=== PATIENT | male | born 1980 | race Caucasian/White ===

== ENCOUNTER 2017-11-01 16:40 | Inpatient (IN) | payer OTHER ==
[~2017-11-01] VITALS: Ht 182.9 cm; Wt 107.5 kg
[~2017-11-01 16:40] MED LIST: AMLO10TA PO; ASPI-1093 PO; ASPI81CT95 PO; CALC667C3 PO; CARV25TA PO; CARV25TA2 PO; CLON0.1T42 PO; CLON0.2T16 PO; FOLI1TAB19 PO; FOS500 PO; FURO-570 PO; HYDR-1807 PO; LANTUS SUBQ; LISI-420 PO; OMEG1SGL6 PO; OMEP40EC1 PO; SIMV20TA1 PO; SIMV20TA6 PO; [UNRECOGNIZED DRUG - CODE] PO; [UNRECOGNIZED DRUG - CODE] PO; [UNRECOGNIZED DRUG - CODE] SC
[2017-11-01 17:00] VITALS: BP 73/44
[2017-11-01] MEDS ORDERED: NACL 0.9% 1,000 ML IV ONE ×2 (17:15→19:10)
[2017-11-01] MEDS ORDERED: VITD1000 PO (17:19)
[2017-11-01] MEDS ORDERED: SUCR500C PO (17:19)
[2017-11-01] MEDS ORDERED: ROC.25 PO (17:19)
[2017-11-01] MEDS ORDERED: [UNRECOGNIZED DRUG - CODE] SC (17:19)
[2017-11-01] MEDS ORDERED: INSU300S SC (17:19)
[2017-11-01] MEDS ORDERED: ONDA4TAB PO (17:19)
[2017-11-01] MEDS ORDERED: CRAN300T PO (17:19)
[2017-11-01] MEDS ORDERED: ATROPINE PO (17:19)
[2017-11-01] MEDS ORDERED: LOSA50TA39 PO (17:19)
[2017-11-01 18:02] LABS: BASOPHILS # (AUTO) 0.3 K/uL (0.00-0.22); BASOPHILS % (AUTO) 3.1 % (0.0-2.0); EOSINOPHILS # (AUTO) 0.2 K/uL (0-0.4); HEMATOCRIT 43.1 % (36-52); HEMOGLOBIN 14.3 g/dL (12.0-18.0); LYMPHOCYTES # (AUTO) 2.6 K/uL (2.0-11.5); LYMPHOCYTES % (AUTO) 25.6 % (20.5-51.1); MEAN CORPUSCULAR HEMOGLOBIN 33 pg (27-31); MEAN CORPUSCULAR HGB CONC 33 g/dL (33-37); MEAN CORPUSCULAR VOLUME 100 fL (80-94); MONOCYTES # (AUTO) 1.1 K/uL (0.8-1.0); MONOCYTES % (AUTO) 10.7 % (1.7-9.3); NEUTROPHILS # (AUTO) 5.8 K/uL (1.8-7.7); NEUTROPHILS % (AUTO) 58.6 % (42.2-75.2); PLATELET COUNT (AUTO) 239 K/uL (140-450); RED BLOOD CELL COUNT(AUTO) 4.32 MIL/uL (4.20-6.10); RED CELL DISTRIBUTION WIDTH 14.7 % (11.6-13.7)
[2017-11-01 18:11] LABS: ANION GAP 20.1 (8-16); CARBON DIOXIDE 22.8 mmol/L (21-32); POTASSIUM 3.9 mmol/L (3.5-5.1)
[2017-11-01 18:19] LABS: CREATININE 9.4 mg/dL (0.7-1.3)
[2017-11-01 18:21] LABS: ALBUMIN 3.4 g/dL (3.4-5.0); TOTAL BILIRUBIN 0.9 mg/dL (0.0-1.0)
[2017-11-01 18:23] LABS: PROTHROMBIN TIME 10.6 secs (10.8-13.4)
[2017-11-01] MEDS ORDERED: NACL 0.9% 1,000 ML IV SCH (19:14)
[2017-11-01] MEDS ORDERED: HYDROcodone/APAP 7.5/325 MG 1 TAB PO PRN (19:15)
[2017-11-01] MEDS ORDERED: ACETAMINOPHEN 325 MG TAB PO PRN (19:15)
[2017-11-01 20:05] VITALS: BP 116/83
[2017-11-01] MEDS: DOCUSATE SODIUM 100 MG GELCAP PO SCH (21:00)
[2017-11-01 23:38] LABS: CHOL/HDL RATIO 4.8 (1-4.5); FREE T4 (FREE THYROXINE) 1.23 ng/dL (0.76-1.46); MAGNESIUM 2.4 mg/dL (1.8-2.4); PHOSPHORUS 2.1 mg/dL (2.5-4.9); THYROID STIMULATING HORMONE 2.22 uIU/mL (0.34-3.74)
[2017-11-02] VITALS: BP 106/71
[2017-11-02 04:00] VITALS: BP 91/66
[2017-11-02] MEDS: ONDANSETRON 4 MG/2 ML VIAL IVP PRN ×2 (04:47→21:31)
[2017-11-02] MEDS ORDERED: ONDANSETRON 4 MG TAB PO PRN (05:10)
[2017-11-02] MEDS ORDERED: INSU300S SC (05:12)
[2017-11-02] MEDS ORDERED: DEXTROSE 50% 50 ML SYR IVP PRN (05:15)
[2017-11-02] MEDS: BLOOD GLUCOSE MONITORING 1 DEV DEV FS SCH ×4 (07:30→21:13)
[2017-11-02 08:00] VITALS: BP 141/91
[2017-11-02] MEDS ORDERED: CARVEDILOL 12.5 MG TAB PO SCH (09:00)
[2017-11-02] MEDS ORDERED: NON-FORMULARY ITEM (Omeprazole* (Prilosec*) 40 MG) PO SCH (09:00)
[2017-11-02] MEDS ORDERED: LOSARTAN 50 MG TAB PO SCH (09:00)
[2017-11-02] MEDS ORDERED: CRANBERRY FRUIT EXTRACT 300 MG PO SCH (09:00)
[2017-11-02] MEDS ORDERED: [UNRECOGNIZED DRUG - OTHER] SCH (09:00)
[2017-11-02] MEDS ORDERED: OMEGA ACID ETHYL ESTERS PO SCH (09:00)
[2017-11-02] MEDS ORDERED: amLODIPine 5 MG TAB PO SCH (09:00)
[2017-11-02] MEDS: DOCUSATE SODIUM 100 MG GELCAP PO SCH ×2 (09:00→21:00)
[2017-11-02] MEDS ORDERED: INSULIN GLARGINE HUM REC ANLOG U SCH (09:00)
[2017-11-02] MEDS ORDERED: HYDRALAZINE HYDROCHLORIDE PO SCH (09:00)
[2017-11-02] MEDS: LANTHANUM CARBONATE 500 MG TAB PO SCH ×3 (10:10→18:11)
[2017-11-02] MEDS: CHOLECALCIFEROL 1,000 IU TAB PO SCH (10:10)
[2017-11-02] MEDS: FOLIC ACID 1 MG TAB PO SCH (10:10)
[2017-11-02] MEDS: CALCITRIOL 0.25 MCG CAPLF PO SCH ×2 (10:10→21:00)
[2017-11-02] MEDS: PANTOPRAZOLE 40 MG TABEC PO SCH (10:10)
[2017-11-02 12:00] VITALS: BP 148/91
[2017-11-02 16:00] VITALS: BP 135/89
[2017-11-02] MEDS: SUCROFERRIC OXYHYDROXIDE 500 MG PO SCH (18:13)
[2017-11-02 20:00] VITALS: BP 139/90
[2017-11-02] MEDS: INSULIN LISPRO SLIDING SCALE 100 UNITS/ML VIAL SUBQ PRN (21:32)
[2017-11-03] VITALS: BP 129/90
[2017-11-03 04:00] VITALS: BP 135/90
[2017-11-03] MEDS: BLOOD GLUCOSE MONITORING 1 DEV DEV FS SCH ×2 (06:17→11:41)
[2017-11-03 07:54] LABS: BASOPHILS # (AUTO) 0.1 K/uL (0.00-0.22); EOSINOPHILS # (AUTO) 0.3 K/uL (0-0.4); EOSINOPHILS % (AUTO) 3.2 % (0.0-4.0); HEMATOCRIT 35.3 % (36-52); HEMOGLOBIN 11.8 g/dL (12.0-18.0); LYMPHOCYTES # (AUTO) 2.2 K/uL (2.0-11.5); LYMPHOCYTES % (AUTO) 23.5 % (20.5-51.1); MEAN CORPUSCULAR HEMOGLOBIN 33 pg (27-31); MEAN CORPUSCULAR HGB CONC 33 g/dL (33-37); MEAN CORPUSCULAR VOLUME 99 fL (80-94); MONOCYTES # (AUTO) 0.8 K/uL (0.8-1.0); MONOCYTES % (AUTO) 8.6 % (1.7-9.3); NEUTROPHILS # (AUTO) 6.1 K/uL (1.8-7.7); NEUTROPHILS % (AUTO) 63.7 % (42.2-75.2); PLATELET COUNT (AUTO) 200 K/uL (140-450); RED BLOOD CELL COUNT(AUTO) 3.57 MIL/uL (4.20-6.10); WHITE BLOOD COUNT (AUTO) 9.5 K/uL (4.8-10.8)
[2017-11-03] MEDS: SUCROFERRIC OXYHYDROXIDE 500 MG PO SCH ×2 (07:56→12:04)
[2017-11-03] MEDS: LANTHANUM CARBONATE 500 MG TAB PO SCH (07:56)
[2017-11-03 08:00] VITALS: BP 141/100
[2017-11-03] MEDS ORDERED: CALCITRIOL 0.25 MCG CAPLF PO SCH (09:00)
[2017-11-03 09:01] LABS: ANION GAP 17.2 (8-16); CARBON DIOXIDE 25.7 mmol/L (21-32); POTASSIUM 4.9 mmol/L (3.5-5.1)
[2017-11-03 09:03] LABS: MAGNESIUM 2.3 mg/dL (1.8-2.4); PHOSPHORUS 2.4 mg/dL (2.5-4.9)
[2017-11-03 09:09] LABS: CREATININE 13.1 mg/dL (0.7-1.3)
[2017-11-03] MEDS: CHOLECALCIFEROL 1,000 IU TAB PO SCH (09:36)
[2017-11-03] MEDS: PANTOPRAZOLE 40 MG TABEC PO SCH (09:36)
[2017-11-03] MEDS: FOLIC ACID 1 MG TAB PO SCH (09:36)
[2017-11-03] MEDS ORDERED: NATPARA SUBQ SCH (11:00)
[2017-11-03] MEDS ORDERED: VIT-B COMP/VIT-C/FOLIC ACID 1 TAB PO SCH (11:30)
[2017-11-03 12:00] VITALS: BP 172/92
[2017-11-03] MEDS: INSULIN LISPRO SLIDING SCALE 100 UNITS/ML VIAL SUBQ PRN (13:00)
[2017-11-03] MEDS ORDERED: LOPERAMIDE 2 MG CAP PO PRN (13:10)
[2017-11-03] MEDS ORDERED: amLODIPine 5 MG TAB PO SCH (13:19)
[2017-11-03] MEDS ORDERED: CARVEDILOL 12.5 MG TAB PO SCH ×3 (13:25→21:00)
[2017-11-03] MEDS ORDERED: IMO2 PO (13:29)
[2017-11-03 16:00] VITALS: BP 149/102
[2017-11-03] MEDS ORDERED: hydrALAZINE 25 MG TAB PO SCH (21:00)
[2017-11-04] MEDS ORDERED: VIT-B COMP/VIT-C/FOLIC ACID 1 TAB PO SCH (09:00)
[2017-11-04] MEDS ORDERED: amLODIPine 5 MG TAB PO SCH (09:00)
[2017-11-04] MEDS ORDERED: LOSARTAN 50 MG TAB PO SCH (09:00)
== END 2017-11-03 16:15 | disposition home or self-care (01) | DRG 391 ==
LOC: MED 16:40 → MTU 19:23
PROVIDERS: ADMIT Family Medicine; ATTEND Family Medicine
PROC: 5A1D70Z Performance of Urinary Filtration, Intermittent, Less than 6 Hours Per Day (ICD-10-PCS; principal; 2017-11-02)
DX: K52.9 Noninfective gastroenteritis and colitis, unspecified (principal); N17.0 Acute kidney failure with tubular necrosis; I13.2 Hypertensive heart and chronic kidney disease with heart failure and with stage 5 chronic kidney disease, or end stage renal disease; E11.21 Type 2 diabetes mellitus with diabetic nephropathy; D68.59 Other primary thrombophilia; E11.51 Type 2 diabetes mellitus with diabetic peripheral angiopathy without gangrene; N18.6 End stage renal disease; E11.22 Type 2 diabetes mellitus with diabetic chronic kidney disease; T82.868A Thrombosis due to vascular prosthetic devices, implants and grafts, initial encounter; E11.65 Type 2 diabetes mellitus with hyperglycemia; E86.1 Hypovolemia; I50.9 Heart failure, unspecified; E78.5 Hyperlipidemia, unspecified; E66.9 Obesity, unspecified; E21.3 Hyperparathyroidism, unspecified; Y83.8 Other surgical procedures as the cause of abnormal reaction of the patient, or of later complication, without mention of misadventure at the time of the procedure; Y92.89 Other specified places as the place of occurrence of the external cause; Z99.2 Dependence on renal dialysis; Z79.4 Long term (current) use of insulin; Z68.32 Body mass index [BMI] 32.0-32.9, adult; Z88.8 Allergy status to other drugs, medicaments and biological substances; Z82.3 Family history of stroke; Z82.49 Family history of ischemic heart disease and other diseases of the circulatory system; Z91.14 Patient's other noncompliance with medication regimen
CPT/HCPCS: 36415; 71045; 80048; 80053; 82150; 82948; 83036; 83690; 83735; 83880; 84100; 84439; 84443; 84484; 85025; 85610; 85730; 87070; 87081; 93005; 93925; 93970; 96360; 99291; J1815; J2405; J7030; Q0092

== ENCOUNTER 2018-06-23 16:25 | Inpatient (IN) | payer OTHER ==
[~2018-06-23] VITALS: Ht 182.9 cm; Wt 108.4 kg
[~2018-06-23 16:25] MED LIST changes: -ASPI-1093 PO; -ASPI81CT95 PO; +ATROPINE PO; -CALC667C3 PO; -CARV25TA2 PO; -CLON0.1T42 PO; -CLON0.2T16 PO; +CRAN300T PO; -FURO-570 PO; +IMO2 PO; +INSU300S SC; -LANTUS SUBQ; -LISI-420 PO; +LOSA50TA27 PO; +ONDA4TAB PO; +ROC.25 PO; -SIMV20TA1 PO; -SIMV20TA6 PO; +SUCR500C PO; +VITD1000 PO; -[UNRECOGNIZED DRUG - CODE] PO; +[UNRECOGNIZED DRUG - CODE] SC; -[UNRECOGNIZED DRUG - CODE] SC
[2018-06-23 17:09] VITALS: BP 126/82
--- NOTE | 2018-06-23 17:16 | NUR ---
PATIENT AMBULATED TO BED 7 AT THIS TIME.
--- NOTE | 2018-06-23 17:20 | NUR ---
38YO M PT C/O CYST/ABCESS ON LEFT GLUTE UNDER GLUTEAL FOLD X 4 DAYS. 03/16 PAIN, MILD REDNESS, WARM TO TOUCH, TENDER TO TOUCH, SKIN INTACT. PT STATES BEING SENT BY DR VILLARREAL FOR "DIABETIC BOIL". HX: DIABETES, KIDNEY FAILURE, DIALYSIS T-T-S, DOSE NOT MAKE URINE, HTN, BLIND RX: SEE RECONCILE
--- NOTE | 2018-06-23 19:14 | NUR ---
Pt report given to NAILA HANKS. Transfer of care at this time.
--- NOTE | 2018-06-23 19:14 | NUR ---
Haylie oswald in ED - 06/23/18 at 1914 by [facility] t report given to NAILA HANKS. Transfer of care at this time.
[2018-06-23] MEDS ORDERED: NACL 0.9% 1,000 ML IV ONE ×2 (19:27→22:30)
--- NOTE | 2018-06-23 19:27 | NUR ---
REPORT FROM GEOVANNI HANKS
[2018-06-23] MEDS ORDERED: PIPERACILLIN/TAZOBACTAM 3.375 GM in DEXTROSE 5% 50 ML IV ONE (19:30)
[2018-06-23] MEDS ORDERED: KETOROLAC 30 MG/ML VIAL IVP ONE (19:30)
[2018-06-23] MEDS ORDERED: PIPERACILLIN/TAZOBACTAM 3.375 GM VIAL IV ONE (19:51)
[2018-06-23 20:04] LABS: BASOPHILS # (AUTO) 0.1 K/uL (0.00-0.22); BASOPHILS % (AUTO) 0.8 % (0.0-2.0); EOSINOPHILS # (AUTO) 0.2 K/uL (0-0.4); HEMATOCRIT 32.4 % (36-52); HEMOGLOBIN 10.9 g/dL (12.0-18.0); LYMPHOCYTES # (AUTO) 2.6 K/uL (2.0-11.5); LYMPHOCYTES % (AUTO) 33.8 % (20.5-51.1); MEAN CORPUSCULAR HEMOGLOBIN 33 pg (27-31); MEAN CORPUSCULAR HGB CONC 34 g/dL (33-37); MEAN CORPUSCULAR VOLUME 97.6 fL (80-94); MONOCYTES # (AUTO) 0.9 K/uL (0.8-1.0); MONOCYTES % (AUTO) 11.2 % (1.7-9.3); NEUTROPHILS % (AUTO) 52.2 % (42.2-75.2); PLATELET COUNT (AUTO) 201 K/uL (140-450); RED BLOOD CELL COUNT(AUTO) 3.32 MIL/uL (4.20-6.10); WHITE BLOOD COUNT (AUTO) 7.8 K/uL (4.8-10.8)
[2018-06-23 20:13] LABS: ANION GAP 13.4 (8-16); CARBON DIOXIDE 30.3 mmol/L (21-32); POTASSIUM 4.7 mmol/L (3.5-5.1)
[2018-06-23 20:15] LABS: ALBUMIN 2.7 g/dL (3.4-5.0); CREATININE 10.9 mg/dL (0.7-1.3); TOTAL BILIRUBIN 0.5 mg/dL (0.0-1.0)
[2018-06-23 20:31] LABS: PROTHROMBIN TIME 9.5 secs (10.8-13.4)
--- NOTE | 2018-06-23 20:39 | NUR ---
(SURGERY) AT BEDSIDE
[2018-06-23] MEDS ORDERED: DEXT 5% / NACL 0.45% 1,000 ML IV SCH (21:56)
[2018-06-23] MEDS ORDERED: ZOLPIDEM 5 MG TAB PO PRN (22:00)
[2018-06-23] MEDS ORDERED: ONDANSETRON 4 MG/2 ML VIAL IM/IVP PRN (22:00)
[2018-06-23] MEDS ORDERED: ACETAMINOPHEN 325 MG TAB PO PRN (22:00)
[2018-06-23] MEDS ORDERED: HYDROcodone/APAP 5/325 MG 1 TAB TAB PO PRN (22:00)
[2018-06-23] MEDS ORDERED: MORPHINE SULFATE 2 MG/ML SYR IVP PRN (22:00)
[2018-06-23] MEDS ORDERED: DOCUSATE SODIUM 100 MG GELCAP PO PRN (22:00)
[2018-06-23] MEDS ORDERED: LORazepam 2 MG/ML VIAL IM/IVP PRN (22:00)
[2018-06-23] MEDS ORDERED: DEXTROSE 50% 50 ML SYR IVP PRN (22:05)
[2018-06-23] MEDS ORDERED: INSU300S SC (22:10)
--- NOTE | 2018-06-23 22:35 | NUR ---
Patient will be admitted to care of dr brandon. Admited to tele. Will go to room 106b. Belongings list completed. Report to maria del rosario hewitt .
[2018-06-23 22:55] VITALS: BP 160/75
--- NOTE | 2018-06-23 23:00 | NUR ---
RECEIVED PT FROM ER VIA [employer] SHAFT SINKER SR IV ON LEFT AC GAUGE # 20 INFUSING WELL IV FLUIDS, PT LEGALLY BLIND ON RT FA AV FISTULA FOR HEMODIALYSIS SKIN IS INTACT PT IS HERE PT AND FAMILY ORIENTED TO THE FLOOR CALL LIGHT WITHIN REACH BED ALARM , AND PT RISK PROTOCOL DONE INITIAL ASSESSMENT DONE .
[2018-06-23] MEDS ORDERED: LOPERAMIDE 2 MG CAP PO PRN (23:20)
--- NOTE | 2018-06-23 23:30 | NUR ---
DR LO IS HERE AND SEE THE PT PERINEAL ABSCESS IS NOT REDNESS AT THIS TIME
[2018-06-23 23:48] LABS: MAGNESIUM 2.8 mg/dL (1.8-2.4); PHOSPHORUS 6.2 mg/dL (2.5-4.9); THYROID STIMULATING HORMONE 1.34 uIU/mL (0.34-3.74)
--- NOTE | 2018-06-24 01:00 | NUR ---
PT SLEEPING WELL NOT DISTRESS NOTED CALL LIGHT WITHIN ON TELEMETRY SR DENIES ANY PAIN AT THIS TIME
[2018-06-24] MEDS ORDERED: PIPERACILLIN/TAZOBACTAM 2.25 GM VIAL IV ONE (03:53)
[2018-06-24 04:00] VITALS: BP 145/64
--- NOTE | 2018-06-24 04:00 | NUR ---
SPONGE BATH GIVEN LINE CHANGED PT ON TELEMETRY SR GETTING SLEEP DENIES ANY PAIN AT THIS TIME
[2018-06-24] MEDS: PIPER/TAZO 2.25GM/D5W PREMIX 50 ML IV SCH ×3 (05:04→20:38)
[2018-06-24] MEDS: BLOOD GLUCOSE MONITORING 1 DEV DEV FS SCH ×4 (06:55→20:43)
[2018-06-24] MEDS: INSULIN LISPRO SLIDING SCALE 100 UNITS/ML VIAL SUBQ PRN ×3 (06:56→20:42)
--- NOTE | 2018-06-24 07:02 | NUR ---
BLOOD SUGAR TEST 206 COVERAGE WITH 4 UNITS HUMALOG SUBQ SUBQ FOLLOW PROTOCOL
[2018-06-24 07:17] LABS: BASOPHILS % (AUTO) 0.7 % (0.0-2.0); EOSINOPHILS # (AUTO) 0.2 K/uL (0-0.4); EOSINOPHILS % (AUTO) 2.8 % (0.0-4.0); HEMATOCRIT 31.2 % (36-52); HEMOGLOBIN 10.3 g/dL (12.0-18.0); LYMPHOCYTES # (AUTO) 2.3 K/uL (2.0-11.5); LYMPHOCYTES % (AUTO) 36.3 % (20.5-51.1); MEAN CORPUSCULAR HEMOGLOBIN 33 pg (27-31); MEAN CORPUSCULAR HGB CONC 33 g/dL (33-37); MEAN CORPUSCULAR VOLUME 98.4 fL (80-94); MONOCYTES # (AUTO) 0.8 K/uL (0.8-1.0); MONOCYTES % (AUTO) 13.1 % (1.7-9.3); NEUTROPHILS # (AUTO) 2.9 K/uL (1.8-7.7); NEUTROPHILS % (AUTO) 47.1 % (42.2-75.2); PLATELET COUNT (AUTO) 175 K/uL (140-450); RED BLOOD CELL COUNT(AUTO) 3.17 MIL/uL (4.20-6.10); RED CELL DISTRIBUTION WIDTH 14.5 % (11.6-13.7); WHITE BLOOD COUNT (AUTO) 6.2 K/uL (4.8-10.8)
[2018-06-24 08:00] VITALS: BP 173/93
--- NOTE | 2018-06-24 08:00 | NUR ---
PATIENT WAS AWAKE, ALERT. RESPIRATION EVEN, UNLABOR ON ROOM AIR. SKIN DRY AND WARM. IV PATENT AND INTACT. DENIED PAIN, SOB AT THIS TIME. PLAN OF CARE WAS DISCUSSED WITH PATIENT. BED AT LOW POSITION, SIDE RAILS UP. PAULINO LIGHT WITHIN REACH
[2018-06-24 08:02] LABS: CHOL/HDL RATIO 3.5 (1-4.5)
[2018-06-24 08:25] LABS: MAGNESIUM 2.8 mg/dL (1.8-2.4); PHOSPHORUS 7.2 mg/dL (2.5-4.9)
[2018-06-24 08:53] LABS: CARBON DIOXIDE 29.2 mmol/L (21-32); POTASSIUM 5.2 mmol/L (3.5-5.1)
--- NOTE | 2018-06-24 08:59 | NUR ---
PATIENT HAS BEEN SCREENED AND CATEGORIZED HIGH NUTRITION RISK. PATIENT WILL BE SEEN WITHIN 1-2 DAYS OF ADMISSION. 06/24/18 06/25/[address]
[2018-06-24] MEDS: LOSARTAN 50 MG TAB PO SCH ×2 (09:00→10:11)
[2018-06-24] MEDS ORDERED: INSULIN GLARGINE HUM REC ANLOG U SCH (09:00)
[2018-06-24] MEDS ORDERED: OMEGA ACID ETHYL ESTERS PO SCH (09:00)
[2018-06-24] MEDS: CARVEDILOL 12.5 MG TAB PO SCH ×2 (09:00→20:43)
[2018-06-24] MEDS: LANTHANUM CARBONATE 500 MG TAB PO SCH ×5 (09:00→17:40)
[2018-06-24] MEDS ORDERED: [UNRECOGNIZED DRUG - OTHER] SCH (09:00)
[2018-06-24] MEDS ORDERED: NON-FORMULARY ITEM (Sucroferric Oxyhydroxide (Velphoro) 500 MG) PO SCH (09:00)
[2018-06-24] MEDS: hydrALAZINE 25 MG TAB PO SCH ×2 (09:00→20:43)
[2018-06-24] MEDS: amLODIPine 5 MG TAB PO SCH (09:00)
[2018-06-24] MEDS: CALCITRIOL 0.25 MCG CAPLF PO SCH ×2 (09:11→20:38)
[2018-06-24] MEDS: CHOLECALCIFEROL 1,000 IU TAB PO SCH (09:11)
[2018-06-24] MEDS: PANTOPRAZOLE 40 MG TABEC PO SCH (09:11)
[2018-06-24] MEDS: FOLIC ACID 1 MG TAB PO SCH (09:12)
[2018-06-24] MEDS: VIT-B COMP/VIT-C/FOLIC ACID 1 TAB PO SCH (09:12)
--- NOTE | 2018-06-24 09:30 | NUR ---
HEMODIALYSIS CONSENT WAS OBTAINED AT BEDSIDE. PATIENT VERBALIZED UNDERSTANDING
[2018-06-24] MEDS ORDERED: INSULIN LANTUS 100 UNITS/ML 10 ML VIAL SUBQ SCH (12:00)
--- NOTE | 2018-06-24 12:00 | NUR ---
PATIENT WAS AWAKE, ALERT. RESPIRATION EVEN, UNLABOR ON ROOM AIR. NO DISTRESS NOTED AT THIS TIME
--- NOTE | 2018-06-24 13:54 | NUR ---
Initial review faxed to [facility].
--- NOTE | 2018-06-24 14:00 | NUR ---
PATIENT AWAKE, ALERT. RESPIRATION EVEN, UNLABOR ON ROOM AIR. NO DISTRESS NOTED AT THIS TIME
[2018-06-24 16:00] VITALS: BP 106/72
--- NOTE | 2018-06-24 16:00 | NUR ---
PATIENT AWAKE, ALERT. RESPIRATION EVEN, UNLABOR ON ROOM AIR. DENIED PAIN, SOB AT THIS TIME. SURGERY CONSENT WAS OBTAINED AT BEDSIDE. PATIENT VERBALIZED UNDERSTANDING. DIALYSIS AT BEDSIDE. CALL LIGHT WITHIN REACH
--- NOTE | 2018-06-24 16:38 | NUR ---
06/24/18 RD INITIAL ASSESSMENT COMPLETED PLEASE REFER TO NUTRITION ASSESSMENT UNDER CARE ACTIVITY FOR ESTIMATED NUTRITIONAL NEEDS. 1. CONTINUE RENAL AND CCHO 60 GM DIET TOLERATED 2. RD PROVIDED NUTRITION EDUCATION ON RENAL AND DIABETES 3. RD TO FOLLOW-UP 3-5 DAYS, MODERATE RISK ANGELICA PICKARD RD
[2018-06-24] MEDS ORDERED: VELPHORO 500 MG PO SCH (17:00)
[2018-06-24] MEDS: VELPHORO 500 MG PO SCH (17:40)
--- NOTE | 2018-06-24 18:28 | NUR ---
PATIENT WAS AWAKE, ALERT. RESPIRATION EVEN, UNLABOR ON ROOM AIR. IV PATENT AND INTACT. NO DISTRESS NOTED AT THIS TIME. CALL LIGHT WITHIN REACH
--- NOTE | 2018-06-24 19:28 | NUR ---
ENDORSEMENT GIVEN TO KILN CAR REPAIRER NURSE. PATIENT IS STABLE AT THIS TIME
--- NOTE | 2018-06-24 19:30 | NUR ---
RECEIVED REPORT FROM DAYSHIFT NURSE AT BEDSIDE FOR CONTINUITY OF CARE. PT AAOX4. PT IS LEGALLY BLIND. RIGHT ARM RESTRICTION. PT HAS SHUNT ON RIGHT. PT IV IS RAC SALINE LOCK. NO SOB NO S/S OF DISTRESS ON RA. BED LOWERED CALL LIGHT WITHIN REACH. WILL CONTINUE TO MONITOR.
--- NOTE | 2018-06-24 21:21 | NUR ---
DR CELAYA AWARE OF HELD 2 BP MEDS D/T BP 108/83 AND DIALYSIS TODAY 2L OUT.
[2018-06-25] VITALS: BP 108/84
[2018-06-25] MEDS: PIPER/TAZO 2.25GM/D5W PREMIX 50 ML IV SCH ×3 (05:48→20:58)
[2018-06-25] MEDS: BLOOD GLUCOSE MONITORING 1 DEV DEV FS SCH ×4 (05:59→21:01)
[2018-06-25] MEDS: INSULIN LISPRO SLIDING SCALE 100 UNITS/ML VIAL SUBQ PRN ×2 (06:03→11:33)
[2018-06-25 06:18] LABS: HEPATITIS A ANTIBODY IGM Negative (Negative); HEPATITIS B CORE AB TOTAL Negative (Negative); HEPATITIS B SURFACE ANTIBODY Reactive (.); HEPATITIS B SURFACE ANTIGEN Negative (Negative)
[2018-06-25 06:21] LABS: BASOPHILS % (AUTO) 0.6 % (0.0-2.0); EOSINOPHILS # (AUTO) 0.2 K/uL (0-0.4); EOSINOPHILS % (AUTO) 3.1 % (0.0-4.0); HEMOGLOBIN 11.4 g/dL (12.0-18.0); LYMPHOCYTES # (AUTO) 2.2 K/uL (2.0-11.5); LYMPHOCYTES % (AUTO) 37.9 % (20.5-51.1); MEAN CORPUSCULAR HEMOGLOBIN 33 pg (27-31); MEAN CORPUSCULAR HGB CONC 34 g/dL (33-37); MEAN CORPUSCULAR VOLUME 98.3 fL (80-94); MONOCYTES # (AUTO) 0.7 K/uL (0.8-1.0); MONOCYTES % (AUTO) 11.7 % (1.7-9.3); NEUTROPHILS # (AUTO) 2.7 K/uL (1.8-7.7); NEUTROPHILS % (AUTO) 46.7 % (42.2-75.2); PLATELET COUNT (AUTO) 191 K/uL (140-450); RED BLOOD CELL COUNT(AUTO) 3.46 MIL/uL (4.20-6.10); WHITE BLOOD COUNT (AUTO) 5.9 K/uL (4.8-10.8)
[2018-06-25 06:48] LABS: ANION GAP 14.4 (8-16); CARBON DIOXIDE 30.6 mmol/L (21-32)
--- NOTE | 2018-06-25 07:30 | NUR ---
RECEIVED REPORT FROM INTERNET AND E BUSINESS PROJECT MANAGER NURSE AT BEDSIDE. PT IS AAOX4, LEGALLY BLIND. PT HAS SHUNT FOR DIALYSIS ON RIGHT ARM. PT IV IS LEFT AC, 20G, TKO. NO SOB OR S/S OF DISTRESS ON RM AIR. GOING FOR SX FOR PERINEAL ABSCESS TODAY. BED IN LOWEST POSITION. CALL LIGHT WITHIN REACH. WILL CONTINUE TO MONITOR.
[2018-06-25 07:33] LABS: CREATININE 9.1 mg/dL (0.7-1.3)
--- NOTE | 2018-06-25 07:36 | NUR ---
ENDORSED REPORT TO DAYSHIFT NURSE AT BEDSIDE FOR CONTINUITY OF CARE.
[2018-06-25 07:55] LABS: MAGNESIUM 2.5 mg/dL (1.8-2.4); PHOSPHORUS 6.9 mg/dL (2.5-4.9)
[2018-06-25 08:00] VITALS: BP 153/84
[2018-06-25] MEDS: VELPHORO 500 MG PO SCH ×3 (08:00→18:37)
[2018-06-25] MEDS: LANTHANUM CARBONATE 500 MG TAB PO SCH ×3 (08:00→18:37)
[2018-06-25] MEDS: FOLIC ACID 1 MG TAB PO SCH (08:26)
[2018-06-25] MEDS: PANTOPRAZOLE 40 MG TABEC PO SCH (08:26)
[2018-06-25] MEDS: CALCITRIOL 0.25 MCG CAPLF PO SCH ×2 (08:26→20:59)
[2018-06-25] MEDS: CHOLECALCIFEROL 1,000 IU TAB PO SCH (08:26)
[2018-06-25] MEDS: CARVEDILOL 12.5 MG TAB PO SCH ×2 (08:27→20:59)
[2018-06-25] MEDS: VIT-B COMP/VIT-C/FOLIC ACID 1 TAB PO SCH (08:27)
[2018-06-25] MEDS: LOSARTAN 50 MG TAB PO SCH (08:28)
[2018-06-25] MEDS: hydrALAZINE 25 MG TAB PO SCH ×2 (08:28→20:59)
[2018-06-25] MEDS: amLODIPine 5 MG TAB PO SCH (08:28)
[2018-06-25] MEDS ORDERED: INSULIN LANTUS 100 UNITS/ML 10 ML VIAL SUBQ SCH ×3 (09:00→12:00)
[2018-06-25] MEDS ORDERED: INSULIN GLARGINE HUM REC ANLOG U SUBQ SCH (09:00)
[2018-06-25] MEDS ORDERED: ATOR20TA PO (09:11)
[2018-06-25] MEDS ORDERED: NATPARA SUBQ SCH (09:40)
[2018-06-25] MEDS ORDERED: TOUJEO SOLOSTAR SUBQ SCH (09:45)
--- NOTE | 2018-06-25 09:55 | NUR ---
PHARMACY HAS VERIFIED THE PT'S HOME MEDS. HOME MEDS HAS BEEN GIVEN.
[2018-06-25] MEDS ORDERED: BUPIVACAINE-MPF/EPI 0.25% 30 ML VIAL INJ ONE ×2 (14:38→17:26)
[2018-06-25] MEDS ORDERED: GELATIN SPONGE 100 1 SPG TP ONE (14:38)
[2018-06-25] MEDS ORDERED: LIDOCAINE 2% 100 MG/5 ML UJET TP ONE (14:39)
[2018-06-25 16:00] VITALS: BP 159/96
--- NOTE | 2018-06-25 16:30 | NUR ---
VITALS TAKEN, BLOOD SUGAR 136. PT WAS TAKEN TO OR FOR SX. PERINEAL ABSCESS. PT IN STABLE CONDITION.
[2018-06-25] MEDS ORDERED: PROPOFOL 200 MG/20 ML VIAL IV ONE (16:56)
[2018-06-25] MEDS ORDERED: hydrALAZINE 20 MG/ML VIAL ONE (16:56)
[2018-06-25] MEDS ORDERED: KETAMINE 500 MG/5 ML VIAL ONE (16:56)
[2018-06-25] MEDS ORDERED: LABETALOL 100 MG/20 ML VIAL ONE (16:56)
[2018-06-25] MEDS ORDERED: HYDROmorphone 1 MG/ML AMP IVP PRN (17:10)
[2018-06-25] MEDS ORDERED: BLOOD GLUCOSE MONITORING 1 DEV DEV FS ONE (17:10)
[2018-06-25] MEDS ORDERED: ONDANSETRON 4 MG/2 ML VIAL IVP PRN (17:10)
--- NOTE | 2018-06-25 18:30 | NUR ---
PT BACK FROM OR. DRESSING IS DRY AND CLEAN. PER OR NURSE, DR VILLARREAL WANTS TO START WITH CLEAR LIQ DIET. VITALS TAKEN. BP 150/91, HR 78, TEMP 97.4, O2 SAT 98% ON ROOM AIR, RR 18.
--- NOTE | 2018-06-25 19:15 | NUR ---
ENDORSE PT TO RN CARDIAC REHAB RN. PT IN STABLE CONDITION.
--- NOTE | 2018-06-25 19:26 | NUR ---
PT IS POST OP I&D AND STABLE VITALS. RECEIVED REPORT FROM DAYSHIFT NURSE AT BEDSIDE FOR CONTINUITY OF CARE. PT AAOX4. PT IS LEGALLY BLIND. RIGHT ARM RESTRICTION. PT HAS SHUNT ON RIGHT. PT IV IS RAC SALINE LOCK. NO SOB NO S/S OF DISTRESS ON RA. BED LOWERED CALL LIGHT WITHIN REACH. WILL CONTINUE TO MONITOR.
--- NOTE | 2018-06-25 19:40 | NUR ---
CALLED [facility], NOTIFIED HD ORDER BY DR VALDIVIA FOR TOMORROW.
[2018-06-25] MEDS: ATORVASTATIN 20 MG TAB PO SCH (20:58)
[2018-06-25] MEDS: TOUJEO SOLOSTAR SUBQ SCH (21:00)
--- NOTE | 2018-06-25 21:00 | NUR ---
PT REFUSED HUMALOG FOR INSULIN COVERAGE D/T BG 296, I ADMIN LONG ACTING INSULIN ONLY (SOLOSTAR) 56 UNITS. MD AWARE. WILL RECHECK BG. AGAIN.
[2018-06-26] VITALS: BP 139/73
[2018-06-26] MEDS ORDERED: INFLUENZA VIRUS VACCINE QUAD 0.5 ML SYR IMVAC PRN (00:15)
--- NOTE | 2018-06-26 01:31 | NUR ---
B. PT REFUSES INSULIN COVERAGE WILL CONTINUE TO MONITOR.
[2018-06-26] MEDS: PIPER/TAZO 2.25GM/D5W PREMIX 50 ML IV SCH (04:13)
[2018-06-26 06:38] LABS: BASOPHILS % (AUTO) 0.5 % (0.0-2.0); EOSINOPHILS # (AUTO) 0.2 K/uL (0-0.4); EOSINOPHILS % (AUTO) 2.2 % (0.0-4.0); HEMATOCRIT 31.7 % (36-52); HEMOGLOBIN 10.6 g/dL (12.0-18.0); LYMPHOCYTES # (AUTO) 2.8 K/uL (2.0-11.5); LYMPHOCYTES % (AUTO) 36.5 % (20.5-51.1); MEAN CORPUSCULAR HEMOGLOBIN 33 pg (27-31); MEAN CORPUSCULAR HGB CONC 33 g/dL (33-37); MEAN CORPUSCULAR VOLUME 97.6 fL (80-94); MONOCYTES # (AUTO) 0.7 K/uL (0.8-1.0); MONOCYTES % (AUTO) 9.4 % (1.7-9.3); NEUTROPHILS # (AUTO) 3.9 K/uL (1.8-7.7); NEUTROPHILS % (AUTO) 51.4 % (42.2-75.2); PLATELET COUNT (AUTO) 219 K/uL (140-450); RED BLOOD CELL COUNT(AUTO) 3.24 MIL/uL (4.20-6.10); RED CELL DISTRIBUTION WIDTH 14.9 % (11.6-13.7); WHITE BLOOD COUNT (AUTO) 7.6 K/uL (4.8-10.8)
[2018-06-26] MEDS: BLOOD GLUCOSE MONITORING 1 DEV DEV FS SCH ×4 (06:40→20:16)
[2018-06-26 06:55] LABS: ANION GAP 12.4 (8-16); CARBON DIOXIDE 27.8 mmol/L (21-32); POTASSIUM 5.2 mmol/L (3.5-5.1)
[2018-06-26 07:00] LABS: MAGNESIUM 2.6 mg/dL (1.8-2.4); PHOSPHORUS 6.9 mg/dL (2.5-4.9)
--- NOTE | 2018-06-26 07:10 | NUR ---
ASSUMED CONTINUITY OF CARE. NO SIGNS AND SYMPTOMS OF ACUTE DISTRESS NOTED. INITIAL ASSESSMENT DONE. FAMILIARIZED WITH SURROUNDINGS AND KEEP COMFORTABLE ON BED. EXPLAINED DIAGNOSIS, PLAN OF CARE, PAIN MANAGEMENT TEACHING, USE OF CALL LIGHT/BED/TV/BATHROOM. VERBALIZED UNDERSTANDING. CALL LIGHT WITHIN REACH.
[2018-06-26] MEDS: INSULIN LISPRO SLIDING SCALE 100 UNITS/ML VIAL SUBQ PRN ×3 (07:37→16:50)
--- NOTE | 2018-06-26 07:38 | NUR ---
ENDORSED TO DAYSARFT NURSE FOR CONTINUITY OF CARE.
[2018-06-26] MEDS: VELPHORO 500 MG PO SCH ×3 (07:44→17:44)
[2018-06-26] MEDS: LANTHANUM CARBONATE 500 MG TAB PO SCH ×3 (07:45→17:44)
[2018-06-26 08:00] VITALS: BP 138/81
[2018-06-26 08:00] LABS: CREATININE 11.5 mg/dL (0.7-1.3)
--- NOTE | 2018-06-26 08:00 | NUR ---
Patient's Plan of Care was discussed and reviewed with AIR PUMPER: TD [facility]OE
[2018-06-26] MEDS: CALCITRIOL 0.25 MCG CAPLF PO SCH ×2 (08:38→20:16)
[2018-06-26] MEDS: CHOLECALCIFEROL 1,000 IU TAB PO SCH (08:42)
[2018-06-26] MEDS: PANTOPRAZOLE 40 MG TABEC PO SCH (08:43)
[2018-06-26] MEDS: VIT-B COMP/VIT-C/FOLIC ACID 1 TAB PO SCH (08:43)
[2018-06-26] MEDS: FOLIC ACID 1 MG TAB PO SCH (08:43)
[2018-06-26] MEDS: NATPARA SUBQ SCH (08:44)
[2018-06-26] MEDS: hydrALAZINE 25 MG TAB PO SCH ×2 (08:44→20:16)
[2018-06-26] MEDS: amLODIPine 5 MG TAB PO SCH (08:45)
[2018-06-26] MEDS: LOSARTAN 50 MG TAB PO SCH (08:45)
[2018-06-26] MEDS: CARVEDILOL 12.5 MG TAB PO SCH ×2 (08:45→20:16)
--- NOTE | 2018-06-26 09:17 | NUR ---
DR. VILLARREAL CAME AND SEEN PT. PER DR. VILLARREAL, IT'S OK TO CHANGE WOUND DRESSING AND PACKING, AND PACK AGAIN WITH 2 INCH PACKING DRESSING.
--- NOTE | 2018-06-26 11:00 | NUR ---
ICU CHARGE NURSE -ROBERTO CAME FOR PT. IV INSERTION. TRIED 3 TIMES AND WAS UNABLE TO PUT IV ACCESS. PT. REFUSED ANY IV INSERTION ANYMORE.
--- NOTE | 2018-06-26 11:12 | NUR ---
INFORMED DR. RIVAS THAT ICU CHARGE NURSE TRIED IV INSERTION AND WAS NOT ABLE TO GET IV ACCESS AND PT. REFUSED IV INSERTION ANYMORE. PER DR. RIVAS, SHE WILL CHANGE IVPB ANTIBIOTIC TO PO. INFORMED CHARGE NURSE MALIA TRINH.
--- NOTE | 2018-06-26 11:55 | NUR ---
LEODAN -HD NURSE STARTED PT. HD AT THIS TIME.
[2018-06-26 12:00] VITALS: BP 147/81
[2018-06-26] MEDS ORDERED: AMOXIL/CLAVULANATE 500/125 MG 1 TAB PO PRN (12:00)
[2018-06-26] MEDS ORDERED: AMOXIL/CLAVULANATE 500/125 MG 1 TAB PO SCH ×2 (12:00→13:00)
--- NOTE | 2018-06-26 15:35 | NUR ---
PRISCILLAON -HD NURSE REPORTED THAT PT. HD WAS DONE AT HIS TIME. NO ACUTE DISTRESS NOTED. IN STABLE CONDITION.
--- NOTE | 2018-06-26 19:07 | NUR ---
BEDSIDE REPORT GIVEN TO ROBINA TRINH. IN STABLE CONDITION.
--- NOTE | 2018-06-26 19:30 | NUR ---
RECEIVED REPORT FROM DAYSHIFT NURSE AT BEDSIDE FOR CONTINUITY OF CARE. PT AAOX4. PT IS LEGALLY BLIND. RIGHT ARM RESTRICTION. PT HAS SHUNT ON RIGHT FOREARM. NO SOB NO S/S OF DISTRESS ON RA. BED LOWERED CALL LIGHT WITHIN REACH. WILL CONTINUE TO MONITOR.
[2018-06-26] MEDS: ATORVASTATIN 20 MG TAB PO SCH (20:16)
[2018-06-26] MEDS: TOUJEO SOLOSTAR SUBQ SCH (20:17)
--- NOTE | 2018-06-26 20:30 | NUR ---
PT BG IS 242. PT DOES NOT WANT TO BE COVERED WITH INSULIN REGULAR HUMALOG. ONLY GAVE LONG ACTING INSULIN TOUDIANNE 56UNITS. WILL CONTINUE TO MONITOR.
[2018-06-27] VITALS: BP 147/86
--- NOTE | 2018-06-27 | NUR ---
PT SLEEPING NO SOB NO S/S OF DISTRESS ON RA. WILL CONTINUE TO MONITOR.
--- NOTE | 2018-06-27 04:10 | NUR ---
PT SLEEPING NO SOB NO S/S OF DISTRESS ON RA. WILL CONTINUE TO MONITOR.
[2018-06-27] MEDS: BLOOD GLUCOSE MONITORING 1 DEV DEV FS SCH ×2 (05:31→12:28)
[2018-06-27 07:22] LABS: BASOPHILS % (AUTO) 0.6 % (0.0-2.0); EOSINOPHILS # (AUTO) 0.2 K/uL (0-0.4); EOSINOPHILS % (AUTO) 3.1 % (0.0-4.0); HEMATOCRIT 32.3 % (36-52); HEMOGLOBIN 10.8 g/dL (12.0-18.0); LYMPHOCYTES # (AUTO) 2.8 K/uL (2.0-11.5); MEAN CORPUSCULAR HEMOGLOBIN 33 pg (27-31); MEAN CORPUSCULAR HGB CONC 34 g/dL (33-37); MEAN CORPUSCULAR VOLUME 98.4 fL (80-94); MONOCYTES # (AUTO) 0.7 K/uL (0.8-1.0); MONOCYTES % (AUTO) 10.5 % (1.7-9.3); NEUTROPHILS # (AUTO) 2.9 K/uL (1.8-7.7); NEUTROPHILS % (AUTO) 43.8 % (42.2-75.2); PLATELET COUNT (AUTO) 217 K/uL (140-450); RED BLOOD CELL COUNT(AUTO) 3.29 MIL/uL (4.20-6.10); WHITE BLOOD COUNT (AUTO) 6.6 K/uL (4.8-10.8)
[2018-06-27 07:24] LABS: ANION GAP 10.5 (8-16); CARBON DIOXIDE 28.4 mmol/L (21-32); POTASSIUM 4.9 mmol/L (3.5-5.1)
[2018-06-27 07:34] LABS: CREATININE 8.6 mg/dL (0.7-1.3)
--- NOTE | 2018-06-27 07:36 | NUR ---
ENDORSED REPORT TO DAYSHIFT NURSE AT BEDSIDE FOR CONTINUITY OF CARE.
--- NOTE | 2018-06-27 07:37 | NUR ---
RECEIVED BEDSIDE REPORT FROM REAL ESTATE REP NURSE. PATIENT IS AWAKE, ALERT AND ORIENTEDX4. NO SIGNS OF DISTRESS ON RA. PATIENT IS BLIND. SIGNS POSTED. FALL RISK PROTOCOL IN PLACE. PATIENT REFUSED TO CHANGE INTO YELLOW GOWN. ALLERGY BAND PLACED. HE IS AMBULATORY WITH HIS WALKING STICK. SKIN HAS HAD A I&D IN PERINEAL AREA DRESSING IS INTACT. NO B/P OR VENIPUNCTURE ON R ARM, AV SHUNT. SIGNS POSTED. NO IV ACCESS. MED SURGE. BED IN LOW POSITION, CALL LIGHT WITHIN REACH. WILL CONTINUE TO MONITOR THE PATIENT.
[2018-06-27 08:00] VITALS: BP 144/91
[2018-06-27] MEDS: VELPHORO 500 MG PO SCH ×2 (08:00→12:21)
[2018-06-27] MEDS: CALCITRIOL 0.25 MCG CAPLF PO SCH (08:07)
[2018-06-27] MEDS: CHOLECALCIFEROL 1,000 IU TAB PO SCH (08:07)
[2018-06-27] MEDS: CARVEDILOL 12.5 MG TAB PO SCH (08:09)
[2018-06-27] MEDS: PANTOPRAZOLE 40 MG TABEC PO SCH (08:09)
[2018-06-27] MEDS: amLODIPine 5 MG TAB PO SCH (08:09)
[2018-06-27] MEDS: FOLIC ACID 1 MG TAB PO SCH (08:10)
[2018-06-27] MEDS: hydrALAZINE 25 MG TAB PO SCH (08:10)
[2018-06-27] MEDS: LOSARTAN 50 MG TAB PO SCH (08:11)
[2018-06-27] MEDS: VIT-B COMP/VIT-C/FOLIC ACID 1 TAB PO SCH (08:11)
[2018-06-27] MEDS: LANTHANUM CARBONATE 500 MG TAB PO SCH ×2 (08:12→12:22)
[2018-06-27] MEDS: NATPARA SUBQ SCH (08:26)
--- NOTE | 2018-06-27 08:27 | NUR ---
PATIENT REFUSED NATPARA BECAUSE IT WAS NOT STORED IN THE FRIDGE. HE REFUSED AMLODIPINE, AND LOSARTAN BECAUSE HE SAID IT WILL DECREASE HIS HR TOO MUCH. ALSO REFUSED VELPHORO BECAUSE HE ALREADY ATE BREAKFAST. EDUCATED PATIENT ON IMPORTANCE. PATIENT VERBALIZED UNDERSTANDING AND REFUSED MEDS STILL.
[2018-06-27] MEDS ORDERED: AMOXIL/CLAVULANATE 500/125 MG 1 TAB PO SCH (09:00)
[2018-06-27] MEDS ORDERED: AMOX-999 PO ×2 (09:01→09:03)
[2018-06-27] MEDS ORDERED: ASCO1CAP75 PO (09:04)
--- NOTE | 2018-06-27 10:48 | NUR ---
PATIENT SITTING IN BED. NO SIGNS OF DISTRESS. BED IN LOW POSITION. CALL LIGHT WITHIN REACH. WILL CONTINUE TO MONITOR THE PATIENT
[2018-06-27] MEDS: INSULIN LISPRO SLIDING SCALE 100 UNITS/ML VIAL SUBQ PRN (12:26)
--- NOTE | 2018-06-27 12:28 | NUR ---
ADMINISTERED MEDS. PATIENT TOLERATED WELL. PATIENT SITTING AT SIDE OF BED EATING FOOD. WILL CONTINUE TO MONITOR
--- NOTE | 2018-06-27 14:00 | NUR ---
ADMINISTERED PRN PAIN MEDS. PATIENT TOLERATED WELL. BED IN LOW POSITION. CALL LIGHT WITHIN REACH. WILL CONTINUE TO MONITOR THE PATIENT.
--- NOTE | 2018-06-27 15:00 | NUR ---
EDUCATED PATIENT AND BROTHER ON DISCHARGE INSTRUCTIONS. EDUCATED ON DISEASE PROCESS, WOUND CARE, GAVE WOUND CARE SUPPLIES, TOOK A PHOTO, EDUCATED ON ABN S/SX, EDUCATED WHEN TO GO TO THE ER, EDUCATED ON MEDS, F/U WITH PCP AND SURGEON. NO PNA OR FLU VACCINE GIVEN. BOTH UP TO DATE. PATIENT AND BROTHER SIGNED DISCHARGE PAPERWORK. ALL QUESTIONS ANSWERED AT THIS TIME. HOME HEALTH WILL BE WORKED ON BY SOCIAL WORKERS TOMORROW AND THEY WILL CALL PATIENT TOMORROW. PATIENT VERBALIZED UNDERSTANDING. PATIENT LEFT WALKING IN STABLE CONDITION.
--- NOTE | 2018-06-28 08:06 | NUR ---
RETRO FAXED DISCHARGE SUMMARY TO [facility] [phone]. ALSO FAXED ORDER FOR HOME HEALTH. RECEIVED ORDER FOR HOME HEALTH FOR WOUND CARE. CALLED [facility] AND SPOKE WITH THAO. SHE SAID TO FAXED ORDER TO [facility] PHONE [phone]. FAXED ORDER TO [phone]. CONFIRMED FAX NUMBER WITH AFTER HOURS PERSONNEL, JAME.
--- NOTE | 2018-06-28 12:46 | NUR ---
CALLED [facility] AND WAS TOLD THAT THEY RECEIVED THE ORDER, JUST WAITING ON INSURANCE. I CALLED THAO AT [facility] AND SHE SAID THAT IT SHOULD BE FINE BECAUSE THEY HAVE A CONTRACT WITH [facility] . I CALL [facility] AND SPOKE WITH CHRISTOPHER. SHE SAID THAT IT IS PENDING, BUT SHE WOULD CALL ME BACK.
--- NOTE | 2018-06-28 15:29 | NUR ---
SPOKE WITH THAO FROM [facility]. SHE SAID THAT THERE IS AN AUTH FOR [facility] AND THEY WILL FOLLOW THE PATIENT.
== END 2018-06-27 15:00 | disposition home health service (06) | DRG 579 ==
LOC: MED 16:25 → MTU 22:02
PROVIDERS: ADMIT General Practice; ATTEND General Practice
PROC: 5A1D70Z Performance of Urinary Filtration, Intermittent, Less than 6 Hours Per Day (ICD-10-PCS; 2018-06-24)
PROC: 5A1D70Z Performance of Urinary Filtration, Intermittent, Less than 6 Hours Per Day (ICD-10-PCS; 2018-06-24)
PROC: 0J9B0ZZ Drainage of Perineum Subcutaneous Tissue and Fascia, Open Approach (ICD-10-PCS; principal; 2018-06-25 15:30)
DX: L02.215 Cutaneous abscess of perineum (principal); N18.6 End stage renal disease; N17.0 Acute kidney failure with tubular necrosis; I50.43 Acute on chronic combined systolic (congestive) and diastolic (congestive) heart failure; E43 Unspecified severe protein-calorie malnutrition; I13.2 Hypertensive heart and chronic kidney disease with heart failure and with stage 5 chronic kidney disease, or end stage renal disease; E11.40 Type 2 diabetes mellitus with diabetic neuropathy, unspecified; E11.22 Type 2 diabetes mellitus with diabetic chronic kidney disease; E11.51 Type 2 diabetes mellitus with diabetic peripheral angiopathy without gangrene; E83.41 Hypermagnesemia; E83.39 Other disorders of phosphorus metabolism; L03.315 Cellulitis of perineum; E11.65 Type 2 diabetes mellitus with hyperglycemia; E11.319 Type 2 diabetes mellitus with unspecified diabetic retinopathy without macular edema; E66.9 Obesity, unspecified; H54.7 Unspecified visual loss; E78.5 Hyperlipidemia, unspecified; G47.33 Obstructive sleep apnea (adult) (pediatric); D63.8 Anemia in other chronic diseases classified elsewhere; K21.9 Gastro-esophageal reflux disease without esophagitis; I70.90 Unspecified atherosclerosis; Z68.31 Body mass index [BMI] 31.0-31.9, adult; Z99.2 Dependence on renal dialysis; Z88.8 Allergy status to other drugs, medicaments and biological substances; Z79.899 Other long term (current) drug therapy; Z79.4 Long term (current) use of insulin; Z82.49 Family history of ischemic heart disease and other diseases of the circulatory system; Z87.891 Personal history of nicotine dependence
CPT/HCPCS: 36415; 71045; 72192; 76536; 80048; 80053; 82948; 83036; 83605; 83690; 83735; 83880; 84100; 84134; 84443; 84484; 85025; 85610; 85730; 86704; 86706; 86708; 86709; 86803; 86886; 86900; 86901; 87040; 87070; 87075; 87081; 87205; 87340; 93005; 96365; 96375; 99285; J0360; J1815; J1885; J2270; J2405; J2543; J2704; J3490; J7030; Q0092

== ENCOUNTER 2018-10-04 18:37 | Emergency (ER) | payer OTHER ==
[~2018-10-04] VITALS: Ht 182.9 cm; Wt 106.6 kg
[~2018-10-04 18:37] MED LIST changes: +AMOX-999 PO; +ASCO1CAP75 PO; +ATOR20TA PO; -ATROPINE PO; -LOSA50TA27 PO; +LOSA50TA66 PO; -ONDA4TAB PO
[2018-10-04 19:15] VITALS: BP 173/101
--- NOTE | 2018-10-04 20:37 | NUR ---
PT TO ER BED 7
--- NOTE | 2018-10-04 20:50 | NUR ---
38/M PRESENTS TO ED WITH FAMILY/FRIEND, C/O 06/16 R DISTAL FA PAIN, X2 DAYS. R FA AV FISTULA NOTED, +BRUIT, +THRILL. PT REPORTS R FA PAIN PROXIMAL TO AV FISTULA SITE, PAIN RADIATES TO R UPPER ARM AND SHOULDER INTERMITTENTLY, +TENDERNESS, +CIRCULATION, +SENSATION, +ROM. PT AOX4, GCS 15, RR EVEN AND UNLABORED HX ESRD (HD ON TTHS), HTN, DM, BLINDNESS
[2018-10-04] MEDS ORDERED: IBUPROFEN 800 MG TAB PO ONE (23:05)
[2018-10-04 23:30] VITALS: BP 183/110
[2019-04-11] MEDS ORDERED: CLON0.1T42 PO (18:52)
[2019-04-11] MEDS ORDERED: MULT-1469 PO (18:52)
[2019-04-11] MEDS ORDERED: DILT-135 (18:52)
[2019-04-11] MEDS ORDERED: INSU300S SC (18:52)
[2019-04-11] MEDS ORDERED: INSU100S5 IJ (18:52)
[2019-04-11] MEDS ORDERED: [UNRECOGNIZED DRUG - CODE] SC (18:52)
== END 2018-10-04 23:30 | disposition home or self-care (01) ==
LOC: MED 18:37
DX: I73.9 Peripheral vascular disease, unspecified (principal); I11.0 Hypertensive heart disease with heart failure; E11.9 Type 2 diabetes mellitus without complications; I50.9 Heart failure, unspecified; N28.9 Disorder of kidney and ureter, unspecified; Z99.2 Dependence on renal dialysis; Z98.890 Other specified postprocedural states; Z79.4 Long term (current) use of insulin; Z79.899 Other long term (current) drug therapy; Z79.2 Long term (current) use of antibiotics; Z88.8 Allergy status to other drugs, medicaments and biological substances
CPT/HCPCS: 73080; 93971; 99284; Q0092

== ENCOUNTER 2019-02-18 20:07 | Emergency (ER) | payer OTHER ==
[~2019-02-18] VITALS: Ht 182.9 cm; Wt 106.6 kg
[2019-02-18 20:10] VITALS: BP 170/90
--- NOTE | 2019-02-18 20:12 | NUR ---
TO LOBBY A/W BED AMBULATORY WITH
--- NOTE | 2019-02-18 21:24 | NUR ---
PT TAKEN TO BED 12.
[2019-02-18 21:52] VITALS: BP 170/90
--- NOTE | 2019-02-18 21:52 | NUR ---
38 Y/O M PRESENTED FOR WOUND RECHECK. PER PT "I HAD SURGERY X2 WEEKS AGO SO THAT I CAN START HOME DIALYSIS. I NOTICED A LUMP ON MY STOMACH AND WANTED TO MAKE SURE IT WAS OKAY." SMALL LUMP NOTED TO MIDDLE ABDOMEN. 5/10 PAIN. TENDER TO TOUCH. BOWEL SOUNDS PRESENT X4 QUADRANTS. FAMILY AT BEDSIDE. WILL CONTINUE TO MONITOR.
[2019-04-11] MEDS ORDERED: MULT-1469 PO (18:52)
[2019-04-11] MEDS ORDERED: INSU100S5 IJ (18:52)
[2019-04-11] MEDS ORDERED: INSU300S SC (18:52)
[2019-04-11] MEDS ORDERED: DILT-135 (18:52)
[2019-04-11] MEDS ORDERED: CLON0.1T42 PO (18:52)
[2019-04-11] MEDS ORDERED: [UNRECOGNIZED DRUG - CODE] SC (18:52)
== END 2019-02-18 23:49 | disposition home or self-care (01) ==
LOC: MED 20:07
DX: T82.898A Other specified complication of vascular prosthetic devices, implants and grafts, initial encounter (principal); I11.0 Hypertensive heart disease with heart failure; I50.9 Heart failure, unspecified; E11.9 Type 2 diabetes mellitus without complications; Z79.899 Other long term (current) drug therapy; Z88.8 Allergy status to other drugs, medicaments and biological substances
CPT/HCPCS: 99284

== ENCOUNTER 2019-05-03 11:37 | Inpatient (IN) | payer OTHER ==
[~2019-05-03] VITALS: Ht 182.9 cm; Wt 108.0 kg
[~2019-05-03 11:37] MED LIST changes: -AMLO10TA PO; -AMOX-999 PO; -ASCO1CAP75 PO; +CLON0.1T42 PO; +DILT-135; -FOS500 PO; -HYDR-1807 PO; +INSU100S5 IJ; -LOSA50TA66 PO; +MULT-1469 PO; -OMEP40EC1 PO; +OMEP40EC24 PO; -ROC.25 PO; -SUCR500C PO; -VITD1000 PO; -[UNRECOGNIZED DRUG - CODE] PO
[2019-05-03 11:47] VITALS: BP 172/83
--- NOTE | 2019-05-03 11:47 | NUR ---
PT BIBA C/O WEAKNESS. PT REPORTS WEAKNESS, ESPECIALLY IN LOWER EXTREMITIES SINCE WAKING UP THIS MORNING. PT DENIES SOB/CP, DENIES ANY PAIN AT THIS TIME. SURGICAL INSICION IN PT PEROTINEAL, COVERED W/ GAUZE, WOUND BED RED/GRANULATING, SOUNDING TISSUE WNL, NO ODOR PRESENT. PT REPORTS THIN CLEAR DRAINAGE, VSS. ER MD TO SEE PT.
--- NOTE | 2019-05-03 11:50 | NUR ---
ASSISTED PT TO AMBULATE TO RESTROOM FOR BM, PT STATES THAT HE NO LONGER PRODUCES URINE.
--- NOTE | 2019-05-03 12:27 | NUR ---
MEDHX:PD (THU, THU, THU), HD (E, JU, SAT), HTN, DM RX:SEE LIST
--- NOTE | 2019-05-03 12:34 | NUR ---
XRAY AT BEDSIDE
--- NOTE | 2019-05-03 12:36 | NUR ---
BALDEMAR EMT AT BEDSIDE FOR EKG
--- NOTE | 2019-05-03 12:49 | NUR ---
20 G INSERTED INTO PTS L HAND, BLOOD DRAWN AND HANDED DIRECTLY TO BULLET SWAGING MACHINE OPERATOR
[2019-05-03 13:00] LABS: BASOPHILS % (AUTO) 0.6 % (0.0-2.0); EOSINOPHILS # (AUTO) 0.2 K/uL (0-0.4); EOSINOPHILS % (AUTO) 2.8 % (0.0-4.0); HEMOGLOBIN 10.1 g/dL (12.0-18.0); LYMPHOCYTES # (AUTO) 1.5 K/uL (2.0-11.5); LYMPHOCYTES % (AUTO) 20.2 % (20.5-51.1); MEAN CORPUSCULAR HEMOGLOBIN 33 pg (27-31); MEAN CORPUSCULAR HGB CONC 34 g/dL (33-37); MEAN CORPUSCULAR VOLUME 97.7 fL (80-94); MONOCYTES # (AUTO) 0.5 K/uL (0.8-1.0); MONOCYTES % (AUTO) 6.4 % (1.7-9.3); NEUTROPHILS # (AUTO) 5.1 K/uL (1.8-7.7); PLATELET COUNT (AUTO) 191 K/uL (140-450); RED BLOOD CELL COUNT(AUTO) 3.07 MIL/uL (4.20-6.10); RED CELL DISTRIBUTION WIDTH 13.9 % (11.6-13.7); WHITE BLOOD COUNT (AUTO) 7.3 K/uL (4.8-10.8)
[2019-05-03 13:15] LABS: PROTHROMBIN TIME 9.7 secs (10.8-13.4)
[2019-05-03 13:30] LABS: ALBUMIN 2.8 g/dL (3.4-5.0); ANION GAP 17.3 (8-16); CARBON DIOXIDE 26.6 mmol/L (21-32); POTASSIUM 5.9 mmol/L (3.5-5.1); TOTAL BILIRUBIN 0.5 mg/dL (0.0-1.0)
[2019-05-03 13:41] LABS: CREATININE 12.1 mg/dL (0.7-1.3)
[2019-05-03] MEDS ORDERED: SODIUM BICARBONATE 8.4% PFS 50 MEQ/50 ML SYR IVP ONE (13:45)
[2019-05-03] MEDS ORDERED: INSULIN REGULAR, HUMAN 100 UNIT/ML VIAL SUBQ ONE (13:45)
[2019-05-03] MEDS ORDERED: PATIROMER CALCIUM SORBITEX 8.4 GM PKT PO ONE (13:45)
[2019-05-03] MEDS ORDERED: DEXTROSE 50% 50 ML SYR IVP ONE (13:45)
--- NOTE | 2019-05-03 13:49 | NUR ---
PT RESTING IN BED, FAMILY AT BEDSIDE, PT AROUSABLE TO NAME, DENIES PAIN AT THIS TIME. STATES HE STILL FEELS WEAK. PT AAOX4, COOPERATIVE. VSS
[2019-05-03 15:52] LABS: MAGNESIUM 2.9 mg/dL (1.8-2.4); PHOSPHORUS 7.2 mg/dL (2.5-4.9); THYROID STIMULATING HORMONE 0.61 uIU/mL (0.34-3.74)
[2019-05-03 16:03] VITALS: BP 195/97
--- NOTE | 2019-05-03 16:03 | NUR ---
PATIENT ARRIVED UNIT ACCOMPANIED BY ER NURSE CHRISTINA AND CHEN BENAVIDES. PATIENT IS AAOX4. RESPIRATION EVEN AND UNLABORED ON RA. DENIED PAIN. NO SIGNS OF DISTRESS NOTED. IV ON L HAND 20G, CLEAN AND INTACT, SL. SURGICAL WOUND ON PERINEAL AREA NOTED, AND AV SHUNT ON R ARM AND PERITONEAL DIALYSIS VALVE ON L ABDOMINAL AREA NOTED. SIGN FOR NO VENIPUNCTURE AND BLOOD PRESSURE ON R HAND POSTED. PATIENT IS LEGALLY BLIND ON BOTH EYES. FALL RISK PROTOCOL INITIALED. RESTRICTED INTAKE AND OUTPUT SIGN POSTED. ORIENTED PATIENT TO THE ROOM, AND INSTRUCTED PATIENT ON HOW TO USE THE CALL LIGHT, BED REMOTE, TELEPHONE, LIGHT, BATHROOM AND TV, PATIENT VERBALIZED UNDERSTANDING. VITALS SIGNS TAKEN AND MRSA NARES COLLECTED. WOUND PICTURE TAKEN. TELE MONITOR ATTACHED. SAFETY MEASURES IN PLACE. BED IN LOW POSITION AND CALL LIGHT WITHIN REACH. BED ALARM ACTIVATED. INSTRUCTED PATIENT TO USE THE CALL LIGHT FOR ANY ASSISTANCE AND PATIENT WAS AWARE.
--- NOTE | 2019-05-03 16:03 | NUR ---
Patient will be admitted to care of [facility]. Admited to TELE VIA GURNEY W/ VSS.. Will go to room 114. Belongings list completed. Report to KIKO HANKS.
--- NOTE | 2019-05-03 16:10 | NUR ---
NOTIFIED DR KING THAT PATIENT'S BP IS 195/[address] KING, HE WILL ORDER CLONDINE PRN.
[2019-05-03] MEDS ORDERED: ACETAMINOPHEN 325 MG TAB PO PRN (16:15)
[2019-05-03] MEDS ORDERED: HYDROcodone/APAP 5/325 MG 1 TAB TAB PO PRN (16:30)
[2019-05-03] MEDS ORDERED: ONDANSETRON 4 MG/2 ML VIAL IM/IVP PRN (16:30)
[2019-05-03] MEDS ORDERED: LOPERAMIDE 2 MG CAP PO PRN (16:45)
[2019-05-03] MEDS: cloNIDine 0.1 MG TAB PO PRN (16:49)
--- NOTE | 2019-05-03 16:49 | NUR ---
ADMINISTERED MEDS PER MD ORDER AND CLONDINE FOR HIGH BP, PATIENT TOLERATED WELL. MEDS EDUCATION PROVIDED TO PATIENT AND PATIENT VERBALIZED UNDERSTANDING. TELE MONITOR ATTACHED. SAFETY MEASURES IN PLACE. BED IN LOW POSITION AND CALL LIGHT WITHIN REACH. INSTRUCTED PATIENT TO USE THE CALL LIGHT FOR ANY ASSISTANCE AND PATIENT WAS AWARE.
--- NOTE | 2019-05-03 16:55 | NUR ---
DR KING IS TALKING AND ASSESSING PATIENT AT BEDSIDE. NO SIGNS OF DISTRESS NOTED. TELE MONITOR ATTACHED. SAFETY MEASURES IN PLACE. BED IN LOW POSITION AND CALL LIGHT WITHIN REACH. BED ALARM ACTIVATED. INSTRUCTED PATIENT TO USE THE CALL LIGHT FOR ANY ASSISTANCE AND PATIENT WAS AWARE.
[2019-05-03] MEDS ORDERED: CALCIUM ACETATE 667 MG TAB PO SCH (17:00)
[2019-05-03] MEDS ORDERED: DEXTROSE 50% 50 ML SYR IVP PRN (17:15)
[2019-05-03] MEDS ORDERED: INSULIN LISPRO SLIDING SCALE 100 UNITS/ML VIAL SUBQ PRN (17:15)
--- NOTE | 2019-05-03 17:15 | NUR ---
INFORMED PATIENT TO BRING IN HIS HOME MED NATPARA, PER PATIENT, HE WILL CALL HIS FIANCE FOR IT.
[2019-05-03] MEDS: CARVEDILOL 12.5 MG TAB PO SCH (17:32)
[2019-05-03] MEDS: NACL 0.9% 1,000 ML IV SCH (17:33)
--- NOTE | 2019-05-03 18:20 | NUR ---
REASSESS BLOOD PRESSURES AND RECEIVED 212/107, PULSE 90. NOTIFIED DR KING AND DR KING WAS AWARE. DIALYSIS NURSE IS AT BEDSIDE. PATIENT IS GOING TO GET DIALYSIS.
[2019-05-03] MEDS: INSULIN REGULAR, HUMAN 100 UNIT/ML VIAL SUBQ SCH (18:43)
--- NOTE | 2019-05-03 18:50 | NUR ---
DR KING CAME TO TALK PATIENT AND ASSESS PATIENT. PATIENT IS IN DIALYSIS. DIALYSIS NURSE IS AT BEDSIDE. NO SIGNS OF DISTRESS NOTED.TELE MONITOR ATTACHED. SAFETY MEASURES IN PLACE. BED IN LOW POSITION AND CALL LIGHT WITHIN REACH. BED ALARM ACTIVATED. INSTRUCTED PATIENT TO USE THE CALL LIGHT FOR ANY ASSISTANCE AND PATIENT WAS AWARE.
--- NOTE | 2019-05-03 19:25 | NUR ---
ENDORSED PATIENT AT BEDSIDE TO SECURITY STRATEGIST NURSE FOR CONTINUITY OF CARE. PATIENT IS DOING DIALYSIS. NO SIGNS OF DISTRESS NOTED. PATIENT IS IN STABLE CONDITION. TELE MONITOR ATTACHED. SAFETY MEASURES IN PLACE. BED IN LOW POSITION AND CALL LIGHT WITHIN REACH. BED ALARM ACTIVATED.
[2019-05-03 20:00] VITALS: BP 144/79
--- NOTE | 2019-05-03 20:00 | NUR ---
Patient's Plan of Care was discussed and reviewed with HEALTHCARE ASSOCIATE: LETICIA GUERIN
[2019-05-03] MEDS: BLOOD GLUCOSE MONITORING 1 DEV DEV FS SCH (21:00)
[2019-05-03 21:49] LABS: ANION GAP 12.1 (8-16); CARBON DIOXIDE 28.3 mmol/L (21-32)
[2019-05-03 21:53] LABS: POTASSIUM 2.4 mmol/L (3.5-5.1)
[2019-05-03 21:55] LABS: CREATININE 4.8 mg/dL (0.7-1.3)
--- NOTE | 2019-05-03 22:00 | NUR ---
DIALYSIS FINISHED, PER ALUMNI SECRETARY 2.6 LITERS OF FLUIDS TAKEN OUT DURING DIALYSIS.
[2019-05-03] MEDS: DILTIAZEM 120 MG CAPER PO SCH (22:10)
[2019-05-03] MEDS: ATORVASTATIN 20 MG TAB PO SCH (22:10)
[2019-05-03] MEDS: INSULIN LANTUS 100 UNITS/ML 10 ML VIAL SUBQ SCH (22:18)
[2019-05-03] MEDS ORDERED: KCL 20 MEQ/WATER INJ PREMIX 200 ML IV ONE (22:25)
[2019-05-03] MEDS ORDERED: POTASSIUM CHLORIDE 10 MEQ TABER PO ONE (22:30)
--- NOTE | 2019-05-03 22:30 | NUR ---
DR. STALEY WILL ORDER PO POTASSIUM BUT WAIT FOR MAGNESIUM LAB RESULT BEFORE GIVING K-RIDER.
[2019-05-04] VITALS: BP 154/85
--- NOTE | 2019-05-04 00:20 | NUR ---
K-RIDER 40 MEQ STARTED BY DEMARIO LEE. PATIENT COMPLAINED OF PAIN IN THE LEFT HAND, WHERE IV SITE IS. COLD COMPRESS APPLIED AND RN SLOWED DOWN INFUSION.
[2019-05-04 04:30] VITALS: BP 208/104
--- NOTE | 2019-05-04 04:45 | NUR ---
BLOOD SUGAR, 39, MEDICATED WITH D50 IVP BY DEMARIO LEE. WILL RECHECK AGAIN.
[2019-05-04] MEDS: cloNIDine 0.1 MG TAB PO PRN ×3 (04:53→23:23)
--- NOTE | 2019-05-04 04:53 | NUR ---
BP - 208/104, HR - 72. MEDICATED WITH CLONIDINE 0.1 MG PO ORDERED.
--- NOTE | 2019-05-04 05:20 | NUR ---
BLOOD SUGAR RECHECKED BY DEMARIO LEE. BS -93. COMFORTABLE IN BED.
--- NOTE | 2019-05-04 06:05 | NUR ---
DR. POTTER ORDERED TO STOP K-RIDER, NOT TO GIVE ANYMORE POTASSIUM, DO STAT BPM AND INFORMED HIM OF THE RESULT. DR. POTTER ALSO SPOKED WITH DR. STALEY.
[2019-05-04 06:07] LABS: T4 (THYROXINE) 7.2 ug/dL (4.5-12.0)
--- NOTE | 2019-05-04 06:20 | NUR ---
PAGED DR. POTTER BUT DID NOT ANSWER. DR. WANG IS AWARE OF K LEVEL - 4.7, CREATININE - 8.2.
[2019-05-04 06:32] LABS: CARBON DIOXIDE 31.7 mmol/L (21-32); POTASSIUM 4.7 mmol/L (3.5-5.1)
[2019-05-04 06:35] LABS: CREATININE 8.2 mg/dL (0.7-1.3)
[2019-05-04 06:50] LABS: BASOPHILS % (AUTO) 0.6 % (0.0-2.0); EOSINOPHILS # (AUTO) 0.3 K/uL (0-0.4); HEMATOCRIT 30.9 % (36-52); HEMOGLOBIN 10.5 g/dL (12.0-18.0); LYMPHOCYTES # (AUTO) 1.5 K/uL (2.0-11.5); LYMPHOCYTES % (AUTO) 20.9 % (20.5-51.1); MEAN CORPUSCULAR HEMOGLOBIN 33 pg (27-31); MEAN CORPUSCULAR HGB CONC 34 g/dL (33-37); MONOCYTES # (AUTO) 0.5 K/uL (0.8-1.0); MONOCYTES % (AUTO) 7.7 % (1.7-9.3); NEUTROPHILS # (AUTO) 4.7 K/uL (1.8-7.7); NEUTROPHILS % (AUTO) 66.8 % (42.2-75.2); PLATELET COUNT (AUTO) 188 K/uL (140-450); RED BLOOD CELL COUNT(AUTO) 3.19 MIL/uL (4.20-6.10)
--- NOTE | 2019-05-04 07:00 | NUR ---
RESTING IN BED, RESPIRATION EVEN AND UNLABORED. CONDITION REMAIN STABLE.
[2019-05-04] MEDS: BLOOD GLUCOSE MONITORING 1 DEV DEV FS SCH ×4 (07:04→21:11)
--- NOTE | 2019-05-04 07:10 | NUR ---
RECEIVED BEDSIDE REPORT FROM DRUG ROOM OPERATOR NURSE FOR CONTINUITY OF CARE. PATIENT IS SLEEPING ON BED. AROUSABLE TO VOICE. EVEN AND UNLABORED CHEST RISES NOTED. ON RA. FLACC 0. NO SIGNS OF DISTRESS NOTED. IV ON L HAND 20, CLEAN AND DRY, INFUSING PER MD ORDER. PERINEAL WOUND NOTED AND DRESSING IS CLEAN AND DRY. AV SHUNT ON RIGHT ARM NOTED, AND PERITONEAL DIALYSIS VALVE ON ABDOMINAL AREA NOTED. PATIENT IS CONTINENT AND URANAL WITHIN REACH. PATIENT IS BILATERAL BLIND AND FALL RISK PROTOCOL INITIALED. SAFETY MEASURES IN PLAC.E Addendum: 05/04/19 at 0832 by Ca Plascencia RN IN PLACE. TELE MONITOR ATTACHED. BED IN LOW POSITION AND CALL LIGHT WITHIN REACH. BED ALARM ACTIVATED.
[2019-05-04 07:13] LABS: MAGNESIUM 2.3 mg/dL (1.8-2.4); PHOSPHORUS 7.2 mg/dL (2.5-4.9)
[2019-05-04 07:15] LABS: CHOL/HDL RATIO 2.6 (1-4.5)
[2019-05-04 08:00] VITALS: BP 122/72
--- NOTE | 2019-05-04 08:22 | NUR ---
PATIENT HAS BEEN SCREENED AND CATEGORIZED MODERATE NUTRITION RISK. PATIENT WILL BE SEEN WITHIN 3-5 DAYS OF ADMISSION. 05/06/19ANGELICA [address]
[2019-05-04] MEDS: CARVEDILOL 12.5 MG TAB PO SCH ×2 (08:43→17:37)
[2019-05-04] MEDS: VIT-B COMP/VIT-C/FOLIC ACID 1 TAB PO SCH (08:43)
[2019-05-04] MEDS: DILTIAZEM 120 MG CAPER PO SCH ×2 (08:43→21:09)
[2019-05-04] MEDS: FOLIC ACID 1 MG TAB PO SCH (08:43)
[2019-05-04] MEDS: INSULIN REGULAR, HUMAN 100 UNIT/ML VIAL SUBQ SCH ×3 (08:44→17:38)
--- NOTE | 2019-05-04 08:44 | NUR ---
CHECKED BLOOD GLUCOSE AND RECEIVED 99, NOTIFIED DR KING. PER DR KING, HOLD THE AM HUMULIN R. ADMINISTERED AM MEDS PER MD ORDER, PATIENT TOLERATED WELL. MEDS EDUCATION PROVIDED TO PATIENT AND PATIENT VERBALIZED UNDERSTANDING. PATIENT AWAKE AND RESTING ON BED WITH TV ON. DENIED PAIN AND DIZZINESS. RESPIRATION EVEN AND UNLABORED ON RA. NO SIGNS OF DISTRESS NOTED. TELE MONITOR ATTACHED. SAFETY MEASURES IN PLACE. BED IN LOW POSITION AND CALL LIGHT WITHIN REACH. BED ALARM ACTIVATED. INSTRUCTED PATIENT TO USE THE CALL LIGHT FOR ANY ASSISTANCE AND PATIENT WAS AWARE.
[2019-05-04] MEDS ORDERED: [UNRECOGNIZED DRUG - OTHER] SCH (09:00)
--- NOTE | 2019-05-04 09:37 | NUR ---
PATIENT AWAKE AND TALKING TO BROTHER EMILIANO SEE AT BEDSIDE. NO SIGNS OF DISTRESS NOTED. TELE MONITOR ATTACHED. SAFETY MEASURES IN PLACE. BED IN LOW POSITION AND CALL LIGHT WITHIN REACH. INSTRUCTED PATIENT TO USE THE CALL LIGHT FOR ANY ASSISTANCE AND PATIENT WAS AWARE.
--- NOTE | 2019-05-04 11:45 | NUR ---
PATIENT IS AWAKE AND RESTING ON BED. DENIED PAIN AND DIZZINESS. TELE MONITOR ATTACHED. NO SIGNS OF DISTRESS NOTED. SAFETY MEASURES IN PLACE. BED IN LOW POSITION AND CALL LIGHT WITHIN REACH. INSTRUCTED PATIENT TO USE THE CALL LIGHT FOR ANY ASSISTANCE AND PATIENT WAS AWARE.
[2019-05-04 12:00] VITALS: BP 148/63
--- NOTE | 2019-05-04 13:07 | NUR ---
INFORMED DR KING THAT LAST GLUCOSE CHECK WAS 148. PER DR KING, HOLD THE 1300 INSULIN R 20 UNITS. READ BACK AND CONFIRMED WITH DR KING. WILL NOT ADMINISTER PER MD ORDER.
--- NOTE | 2019-05-04 13:36 | NUR ---
WOUND CARE EVALUATION NOTES: REASON FOR EVALUATION: SURGICAL WOUND CALIXTO-ANAL SKIN ASSESSMENT DONE ON WITH THIS 39 Y/O MALE PATIENT ADMITTED TO [facility] WITH INITIAL DIAGNOSIS OF FEEL WEAKNESS. PAST MEDICAL HX: DM, HTN, ESRD ON HD AND HX OF SCROTAL ABSCESS. ALL ABOVE INFORMATION WAS OBTAINED FROM THE ADMISSION H&P. AND PT. PT IS AAX4. POC DISCUSSED WITH PRIMARY RN AND TO PT. PT. VERBALIZES UNDERSTANDING. INTEGUMENTARY: -SURGICAL WOUND TO CALIXTO-ANAL, 5D5D0NK WOUND BED 100% GRANULATING TISSUE WITH MUSCLE OBSERVED, MOIST WOUND BED, NO ODOR, FLAT WOUND EDGE, WITH CALIXTO-WOUND SKIN DRY AND INTACT. RECOMMENDATIONS: -HOME HEALTH FOLLOW UP WITH WOUND CARE UPON DISCHARGE -CLEANSE SURGICAL WOUND TO CALIXTO-ANAL WITH NS. PAT DRY, PACK WITH ADAPTIC DRESSING, AND COVER WITH DRY COMPASITE DRESSING CHANGE QD AND PRN IF SOILING. -KEEP AREA DRY AND CLEAN AT ALL TIME PLEASE CONTACT WOUND CARE NURSE FOR ANY QUESTIONS AND CHANGES IN SKIN CONDITION. Addendum: 05/04/19 at 1436 by Merary Plascencia RN (Grace) DR. KING NOTIFY THE RECOMMENDATIONS.
--- NOTE | 2019-05-04 15:29 | NUR ---
PATIENT IS SLEEPING ON BED. EVEN AND UNLABORED CHEST RISES NOTED. NO SIGNS OF DISTRESS NOTED. TELE MONITOR ATTACHED. SAFETY MEASURES IN PLACE. BED IN LOW POSITION AND CALL LIGHT WITHIN REACH. BED ALARM ACTIVATED.
[2019-05-04 16:00] VITALS: BP 165/80
--- NOTE | 2019-05-04 16:06 | NUR ---
VITAL SIGNS TAKEN, AND BP 165/80 PULSE 65, ADMINISTER PRN CLONIDINE, PATIENT TOLERATED WELL. MED EDUCATION PROVIDED TO PATIENT AND PATIENT VERBALIZED UNDERSTANDING. PATIENT AWAKE AND LISTENING TO THE TV. NO SIGNS OF DISTRESS NOTED. SAFETY MEASURES IN PLACE. TELE MONITOR ATTACHED. BED IN LOW POSITION AND CALL LIGHT WITHIN REACH. BED ALARM ACTIVATED. INSTRUCTED PATIENT TO USE THE CALL LIGHT FOR ANY ASSISTANCE AND PATIENT WAS AWARE.
--- NOTE | 2019-05-04 16:35 | NUR ---
INFORMED DR KING THAT BLOOD GLUCOSE CHECK IS 199. PER DR KING, ADMINISTER SCHEDULED INSULIN HUMANLIN R ORDER. WILL ADMINISTER PER MD ORDER.
[2019-05-04] MEDS ORDERED: COMMUNICATION ORDER MC SCH ×2 (17:00)
[2019-05-04] MEDS: NACL 0.9% 1,000 ML IV SCH (17:30)
[2019-05-04] MEDS: LANTHANUM CARBONATE 1000 MG PO SCH (17:35)
[2019-05-04] MEDS: VELPHORO 500 MG PO SCH (17:36)
--- NOTE | 2019-05-04 17:38 | NUR ---
ADMINISTERED MEDS PER MD ORDER, PATIENT TOLERATED WELL. CHECK BP AND RECEIVED 157/79 AND PULSE 79. BLOOD GLUCOSE 199. MEDS EDUCATION PROVIDED TO PATIENT AND PATIENT VERBALIZED UNDERSTANDING. PATIENT AWAKE AND RESTING ON BED AT THIS TIME. NO SIGNS OF DISTRESS NOTED. SAFETY MEASURES IN PLACE. TELE MONITOR ATTACHED. BED IN LOW POSITION AND CALL LIGHT WITHIN REACH. BED ALARM ACTIVATED. INSTRUCTED PATIENT TO USE THE CALL LIGHT FOR ANY ASSISTANCE AND PATIENT WAS AWARE.
--- NOTE | 2019-05-04 19:20 | NUR ---
ENDORSED PATIENT AT BEDSIDE TO HOSPITAL CODER NURSE FOR CONTINUITY OF CARE. PATIENT AWAKE AND SITTING UP ON BED. NO SIGNS OF DISTRESS NOTED. SAFETY MEASURES IN PLACE. TELE MONITOR ATTACHED. BED IN LOW POSITION AND CALL LIGHT WITHIN REACH. BED ALARM ACTIVATED.
--- NOTE | 2019-05-04 19:25 | NUR ---
RECEIVED PT ON BED, AAOX4, ABLE TO MAKE NEEDS KNOWN, VITAL SIGNS STABLE, DENIES ANY PAIN, NO SOB NOTED, IVF INFUSING WELL, BLIND ON BOTH EYES, FREQUENT ROUNDS WILL BE MADE, FOR HEMODIALYSIS TOMORROW, SAFETY MEASURES IN PLACE, CALL LIGHT WITHIN REACH.
[2019-05-04 20:00] VITALS: BP 149/82
[2019-05-04] MEDS: INSULIN LANTUS 100 UNITS/ML 10 ML VIAL SUBQ SCH (21:00)
[2019-05-04] MEDS: ATORVASTATIN 20 MG TAB PO SCH (21:09)
--- NOTE | 2019-05-04 21:15 | NUR ---
BLOOD SUGAR CHECKED WITH 113 RESULT, WILL HOLD DUE L[place] 64 UNITS, DUE MEDS ADMINISTERED, ALL NEEDS ATTENDED.
--- NOTE | 2019-05-04 23:30 | NUR ---
PT SLEEPING, EASILY AROUSABLE, VITAL SIGNS TAKEN, BP ELEVATED, ASYMPTOMATIC, CLONIDINE PO PRN GIVEN FOR SBP ABOVE 160, WILL RECHECK, CONTINUE TO MONITOR CLOSELY.
[2019-05-05] VITALS: BP 169/78
--- NOTE | 2019-05-05 01:36 | NUR ---
BP RECHECKED AFTER CLONIDINE-169/80, ASYMPTOMATIC, DENIES CHEST PAIN, NO SOB NOTED, DR STALEY MADE AWARE, NO NEW ORDER, STATED TO CONTINUE MONITOR PT.
[2019-05-05 04:00] VITALS: BP 179/92
[2019-05-05] MEDS ORDERED: cloNIDine 0.1 MG TAB PO PRN (04:20)
--- NOTE | 2019-05-05 04:33 | NUR ---
BP-179/92, HR-71, ASYMPTOMATIC, DR STALEY MADE AWARE, WITH NEW ORDER, CLONIDINE 0.2MG PO GIVEN ORDERED, MONITORED CLOSELY.
[2019-05-05] MEDS ORDERED: cloNIDine 0.1 MG TAB PO SCH (05:00)
--- NOTE | 2019-05-05 06:12 | NUR ---
BP RECHECKED-170/90, TRENDING DOWN, ASYMPTOMATIC, FOR HEMODIALYSIS TODAY, BLOOD SUGAR CHECKED WITH 141 RESULT, MONITORED CLOSELY.
[2019-05-05] MEDS: BLOOD GLUCOSE MONITORING 1 DEV DEV FS SCH ×4 (06:34→20:46)
[2019-05-05 07:10] LABS: BASOPHILS % (AUTO) 0.6 % (0.0-2.0); EOSINOPHILS # (AUTO) 0.3 K/uL (0-0.4); EOSINOPHILS % (AUTO) 4.8 % (0.0-4.0); HEMATOCRIT 28.8 % (36-52); HEMOGLOBIN 9.9 g/dL (12.0-18.0); LYMPHOCYTES % (AUTO) 30.9 % (20.5-51.1); MEAN CORPUSCULAR HEMOGLOBIN 33 pg (27-31); MEAN CORPUSCULAR HGB CONC 34 g/dL (33-37); MEAN CORPUSCULAR VOLUME 97.2 fL (80-94); MONOCYTES # (AUTO) 0.5 K/uL (0.8-1.0); MONOCYTES % (AUTO) 8.5 % (1.7-9.3); NEUTROPHILS # (AUTO) 3.5 K/uL (1.8-7.7); NEUTROPHILS % (AUTO) 55.2 % (42.2-75.2); PLATELET COUNT (AUTO) 173 K/uL (140-450); RED BLOOD CELL COUNT(AUTO) 2.96 MIL/uL (4.20-6.10); RED CELL DISTRIBUTION WIDTH 14.1 % (11.6-13.7); WHITE BLOOD COUNT (AUTO) 6.4 K/uL (4.8-10.8)
--- NOTE | 2019-05-05 07:28 | NUR ---
PT SLEEPING, NO SIGNS OF DISTRESS, REPORT GIVEN TO RN PRINCE FOR CONTINUITY OF CARE.
--- NOTE | 2019-05-05 07:29 | NUR ---
RECEIVED BEDSIDE REPORT FROM LETTER STAMPING MACHINE OPERATOR NURSE, PT IS AAOX4, ABLE TO FOLLOW COMMANDS AND MAKE NEEDS KNOWN, VSS, DENIES PAIN, NO S/S OF DISTRESS, DENIES SOB, CLEAR LUNG SOUNDS DANIEL., ON RA, DENIES CHEST PAIN, SR ON TELE MONITOR, SOFT ABDOMEN WITH ACTIVE BOWEL SOUNDS, ANURIA, CONTINENT WITH B&B'S, SKIN IS WARM AND DRY TO TOUCH, SURGICAL WOUND PRESENT (SEE WOUND ASSESSMENT), ABLE TO MOVE ALL EXTREMITIES, SLIGHT WEAKNESS NOTED, IV TO LEFT HAND 20GA , PATENT AND SL, AV SHUNT TO RIGHT FOREARM, HOB ELEVATED 30 DEGREES, SAFETY MEASURES IN PLACE, CALL LIGHT WITHIN REACH, EXPLAINED PLAN OF CARE TO PT, PT VERBALIZED UNDERSTANDING, WILL CONTINUE TO MONITOR.
[2019-05-05 07:39] LABS: ANION GAP 15.7 (8-16); CARBON DIOXIDE 27.8 mmol/L (21-32); POTASSIUM 5.5 mmol/L (3.5-5.1)
[2019-05-05 07:57] LABS: CREATININE 10.7 mg/dL (0.7-1.3)
[2019-05-05 08:00] VITALS: BP_SYST 152; BP_SYST 189; BP_DIAS 83; BP_DIAS 92
[2019-05-05] MEDS: VELPHORO 500 MG PO SCH ×3 (08:00→17:00)
[2019-05-05] MEDS: LANTHANUM CARBONATE 1000 MG PO SCH ×3 (08:00→17:00)
[2019-05-05 08:03] LABS: MAGNESIUM 2.3 mg/dL (1.8-2.4); PHOSPHORUS 8.3 mg/dL (2.5-4.9)
--- NOTE | 2019-05-05 09:05 | NUR ---
SCHEDULED MEDICATION GIVEN, PT ABLE TO SWALLOW PILLS WHOLE AND TOLERATED WELL.
[2019-05-05] MEDS: CARVEDILOL 12.5 MG TAB PO SCH ×2 (09:24→17:00)
[2019-05-05] MEDS: DILTIAZEM 120 MG CAPER PO SCH ×2 (09:25→20:43)
[2019-05-05] MEDS: VIT-B COMP/VIT-C/FOLIC ACID 1 TAB PO SCH (09:25)
[2019-05-05] MEDS: FOLIC ACID 1 MG TAB PO SCH (09:25)
[2019-05-05] MEDS: NATPARA SUBQ SCH (09:28)
[2019-05-05] MEDS: INSULIN REGULAR, HUMAN 100 UNIT/ML VIAL SUBQ SCH ×3 (09:28→17:00)
[2019-05-05 12:00] VITALS: BP 189/92
--- NOTE | 2019-05-05 12:00 | NUR ---
NO S/S OF DISTRESS, VSS, DENIES PAIN.
--- NOTE | 2019-05-05 13:00 | NUR ---
WOUND CARE PROVIDED, PT TOLERATED WELL.
--- NOTE | 2019-05-05 14:40 | NUR ---
HD STARTED, HD NURSE AT BEDSIDE.
[2019-05-05 16:00] VITALS: BP 121/72
--- NOTE | 2019-05-05 16:00 | NUR ---
NO CHANGE OF CONDITION, STILL ON HD, VSS, DENIES PAIN. FAMILY MEMBERS AT BEDSIDE.
[2019-05-05] MEDS ORDERED: amLODIPine 5 MG TAB PO SCH (16:15)
[2019-05-05] MEDS: NACL 0.9% 1,000 ML IV SCH (18:07)
--- NOTE | 2019-05-05 19:09 | NUR ---
REPORT GIVEN TO CABLE FERRY OPERATOR NURSE FOR CONTINUE OF CARE, PT IS IN STABLE CONDITION AT THIS TIME.
--- NOTE | 2019-05-05 19:10 | NUR ---
RECEIVED PT ON BED, AAOX4, ABLE TO MAKE NEEDS KNOWN, VITAL SIGNS STABLE, DENIES ANY PAIN, NO SOB NOTED, IV SITE PUFFY INCLUDING HAND AND ARM, NO BLOOD RETURN, INFILTRATED, PT REFUSED TO HAVE A NEW IV LINE INSERTED, STATED HE IS GOING HOME TOMORROW, RISK AND BENEFITS EXPLAINED, BLIND ON BOTH EYES, FREQUENT ROUNDS WILL BE MADE, SAFETY MEASURES IN PLACE, CALL LIGHT WITHIN REACH.
[2019-05-05 20:00] VITALS: BP 128/84
[2019-05-05] MEDS: ATORVASTATIN 20 MG TAB PO SCH (20:43)
[2019-05-05] MEDS: INSULIN LANTUS 100 UNITS/ML 10 ML VIAL SUBQ SCH (20:46)
--- NOTE | 2019-05-05 20:50 | NUR ---
DR STALEY INFORMED OF PT REFUSING TO HAVE A NEW IV LINE INSERTED, STATED ITS OK, BLOOD SUGAR CHECKED WITH 81 RESULT, SANDWICH PROVIDED, HELD DUE LANTUS 64 UNITS, DUE MEDS ADMINISTERED, ALL NEEDS ATTENDED.
--- NOTE | 2019-05-05 23:40 | NUR ---
PT AWAKE LISTENING TO A MOVIE, VITAL SIGNS TAKEN, BP SLIGHTLY ELEVATED, ASYMPTOMATIC, DENIES ANY PAIN, NO SOB NOTED, CALL LIGHT WITHIN REACH, CONTINUE TO MONITOR CLOSELY.
[2019-05-06] VITALS: BP 157/75
--- NOTE | 2019-05-06 03:50 | NUR ---
PT SLEEPING, AROUSABLE TO NAME, VITAL SIGNS TAKEN, BP ELEVATED, ASYMPTOMATIC, DENIES PAIN AND NO SOB NOTED, MONITORED CLOSELY.
[2019-05-06 04:00] VITALS: BP 158/77
--- NOTE | 2019-05-06 06:20 | NUR ---
PHLEB UNABLE TO DRAW AM LAB, WILL TRY AGAIN LATER, BLOOD SUGAR CHECKED WITH 132 RESULT, NO COVERAGE NEEDED, MONITORED CLOSELY.
[2019-05-06] MEDS: BLOOD GLUCOSE MONITORING 1 DEV DEV FS SCH (06:36)
[2019-05-06] MEDS ORDERED: CLON0.1T42 PO (06:56)
--- NOTE | 2019-05-06 07:21 | NUR ---
PT SLEEPING, NO SIGNS OF DISTRESS, BEDSIDE REPORT GIVEN TO RN ANAM FOR CONTINUITY OF CARE.
--- NOTE | 2019-05-06 07:22 | NUR ---
RECEIVED ENDORSEMENT FROM SENIOR JAVA ARCHITECT NURSE. PATIENT IS AAOX4, GUYANESE SPEAKING. RESPIRATIONS ARE EVEN AND UNLABORED ON ROOM AIR. PATIENT DENIES ANY PAIN AT THIS TIME. PATIENT ALSO HAS NO IV ACCESS. PATIENT IS NOTED TO BE BLIND FROM BOTH EYES. PLAN OF CARE WAS REVIEWED WITH PATIENT, PATIENT VERBALIZED UNDERSTANDING. SAFETY MEASURES IN PLACE, CALL LIGHT WITHIN REACH.
[2019-05-06 08:00] VITALS: BP 168/87
[2019-05-06] MEDS: DILTIAZEM 120 MG CAPER PO SCH (08:31)
[2019-05-06] MEDS: CARVEDILOL 12.5 MG TAB PO SCH (08:31)
[2019-05-06] MEDS: FOLIC ACID 1 MG TAB PO SCH (08:31)
[2019-05-06] MEDS: VIT-B COMP/VIT-C/FOLIC ACID 1 TAB PO SCH (08:31)
[2019-05-06] MEDS: VELPHORO 500 MG PO SCH (08:32)
[2019-05-06] MEDS: LANTHANUM CARBONATE 1000 MG PO SCH (08:32)
--- NOTE | 2019-05-06 08:32 | NUR ---
ADMINISTERED SCHEDULED MEDICATIONS. PATIENT TOLERATED WELL. NO OTHER NEEDS AT THIS TIME, WILL CONTINUE TO MONITOR.
[2019-05-06] MEDS: NATPARA SUBQ SCH (08:33)
[2019-05-06] MEDS: INSULIN REGULAR, HUMAN 100 UNIT/ML VIAL SUBQ SCH (08:34)
[2019-05-06] MEDS ORDERED: amLODIPine 5 MG TAB PO SCH (09:00)
--- NOTE | 2019-05-06 10:50 | NUR ---
PATIENT DISCHARGE INSTRUCTIONS GIVEN. ALL QUESTIONS AND CONCERNS ADDRESSED. PATIENTS HOME MEDS GIVEN TO PATIENT. ID BAND WAS REMOVED. PATIENT TAKEN OFF UNIT VIA WHEELCHAIR. ALL BELONGINGS LEFT WITH PATIENT. PATIENT TO BE DISCHARGED HOME. PATIENT IS STABLE AT THIS TIME.
== END 2019-05-06 10:55 | disposition home or self-care (01) | DRG 683 ==
LOC: MED 11:37 → MTU 15:14
PROVIDERS: ADMIT General Practice; ATTEND General Practice
DX: N17.0 Acute kidney failure with tubular necrosis (principal); I13.2 Hypertensive heart and chronic kidney disease with heart failure and with stage 5 chronic kidney disease, or end stage renal disease; E87.5 Hyperkalemia; N18.6 End stage renal disease; N25.81 Secondary hyperparathyroidism of renal origin; E11.22 Type 2 diabetes mellitus with diabetic chronic kidney disease; Z99.2 Dependence on renal dialysis; E83.39 Other disorders of phosphorus metabolism; E83.41 Hypermagnesemia; E11.65 Type 2 diabetes mellitus with hyperglycemia; I50.9 Heart failure, unspecified; D64.9 Anemia, unspecified; E78.5 Hyperlipidemia, unspecified; E83.52 Hypercalcemia; R19.7 Diarrhea, unspecified; E11.319 Type 2 diabetes mellitus with unspecified diabetic retinopathy without macular edema; D63.8 Anemia in other chronic diseases classified elsewhere; Z83.3 Family history of diabetes mellitus; Z88.8 Allergy status to other drugs, medicaments and biological substances; Z82.49 Family history of ischemic heart disease and other diseases of the circulatory system
CPT/HCPCS: 36415; 71045; 80048; 80053; 82948; 83036; 83735; 83880; 84100; 84436; 84443; 84484; 85025; 85610; 85730; 87081; 93005; 96372; 96374; 96375; 99285; J1815; J3480; J7030; Q0092

== ENCOUNTER 2019-06-04 15:35 | Emergency (ER) | payer OTHER ==
[~2019-06-04] VITALS: Ht 182.9 cm; Wt 106.1 kg
[2019-06-04 15:40] VITALS: BP 164/85
[2019-06-04 18:17] VITALS: BP 143/78
== END 2019-06-04 18:16 | disposition home or self-care (01) ==
LOC: MED 15:35
DX: K61.1 Rectal abscess (principal); I11.0 Hypertensive heart disease with heart failure; I50.9 Heart failure, unspecified; E11.9 Type 2 diabetes mellitus without complications; Z99.2 Dependence on renal dialysis; Z88.8 Allergy status to other drugs, medicaments and biological substances; Z79.4 Long term (current) use of insulin; Z79.899 Other long term (current) drug therapy
CPT/HCPCS: 72192; 99284

== ENCOUNTER 2019-06-06 18:05 | Inpatient (IN) | payer OTHER ==
[~2019-06-06] VITALS: Ht 182.9 cm; Wt 101.2 kg
[2019-06-06 18:09] VITALS: BP 175/96
--- NOTE | 2019-06-06 18:13 | NUR ---
SUNDAY JAVED. TO WAIT IN LOBBY FOR BED IN ED.
--- NOTE | 2019-06-06 18:28 | NUR ---
PT AMBULATED TO BED 4 WITH ASSISTANCE OF FAMILY MEMBER.
--- NOTE | 2019-06-06 19:35 | NUR ---
X-Ray at bedside.
[2019-06-06] MEDS ORDERED: HYDROcodone/APAP 5/325 MG 1 TAB TAB PO ONE (19:40)
[2019-06-06] MEDS ORDERED: PIPERACILLIN/TAZOBACTAM 3.375 GM in DEXTROSE 5% 50 ML IV ONE (19:40)
[2019-06-06 20:02] LABS: BASOPHILS % (AUTO) 0.8 % (0.0-2.0); EOSINOPHILS # (AUTO) 0.2 K/uL (0-0.4); EOSINOPHILS % (AUTO) 5.3 % (0.0-4.0); HEMATOCRIT 30.4 % (36-52); LYMPHOCYTES # (AUTO) 1.5 K/uL (2.0-11.5); LYMPHOCYTES % (AUTO) 34.1 % (20.5-51.1); MEAN CORPUSCULAR HEMOGLOBIN 33 pg (27-31); MEAN CORPUSCULAR HGB CONC 33 g/dL (33-37); MEAN CORPUSCULAR VOLUME 99.3 fL (80-94); MONOCYTES # (AUTO) 0.5 K/uL (0.8-1.0); MONOCYTES % (AUTO) 11.4 % (1.7-9.3); NEUTROPHILS # (AUTO) 2.2 K/uL (1.8-7.7); NEUTROPHILS % (AUTO) 48.4 % (42.2-75.2); PLATELET COUNT (AUTO) 161 K/uL (140-450); RED BLOOD CELL COUNT(AUTO) 3.06 MIL/uL (4.20-6.10); RED CELL DISTRIBUTION WIDTH 14.1 % (11.6-13.7); WHITE BLOOD COUNT (AUTO) 4.5 K/uL (4.8-10.8)
[2019-06-06] MEDS ORDERED: ONDANSETRON 4 MG/2 ML VIAL IVP PRN (20:20)
[2019-06-06] MEDS ORDERED: ACETAMINOPHEN 325 MG TAB PO PRN (20:20)
[2019-06-06] MEDS ORDERED: HYDROcodone/APAP 7.5/325 MG 1 TAB PO PRN (20:20)
[2019-06-06 20:24] LABS: PROTHROMBIN TIME 9.8 secs (10.8-13.4)
[2019-06-06] MEDS ORDERED: PIPERACILLIN/TAZOBACTAM 3.375 GM VIAL IV ONE (20:26)
[2019-06-06 20:43] LABS: ALBUMIN 2.7 g/dL (3.4-5.0); ANION GAP 11.7 (8-16); CARBON DIOXIDE 32.1 mmol/L (21-32); POTASSIUM 4.8 mmol/L (3.5-5.1); TOTAL BILIRUBIN 0.5 mg/dL (0.0-1.0)
--- NOTE | 2019-06-06 20:45 | NUR ---
39Y MALE PRESENTED TO ED FOR PERIANAL ABSCESS, PER PT DR. VILLARREAL SENT HIM HERE TO BE EVALUATED FOR POSSIBLE SURGERY IN AM. PT C/O PAIN ON ABSCESS 04/16 NON RADIATING. DENIES ANY FEVER/CHILL, -N/V/DIARRHEA. EDMD MADE AWARE, WILL CONTINUE TO MONITOR CLOSELY. PMH: HTN, HD (T-), DM
[2019-06-06 20:51] LABS: CREATININE 8.9 mg/dL (0.7-1.3)
--- NOTE | 2019-06-06 20:54 | NUR ---
DR. LAUREN EXAMINING PT AT THIS TIME
--- NOTE | 2019-06-06 20:54 | NUR ---
HEMODIALYSIS PATIENT, UNABLE TO PRODUCE URINE PER PT REPORT.
[2019-06-06] MEDS: DOCUSATE SODIUM 100 MG GELCAP PO SCH (21:00)
[2019-06-06 21:08] LABS: FREE T4 (FREE THYROXINE) 1.07 ng/dL (0.76-1.46); MAGNESIUM 2.6 mg/dL (1.8-2.4); PHOSPHORUS 4.2 mg/dL (2.5-4.9); THYROID STIMULATING HORMONE 1.14 uIU/mL (0.34-3.74)
--- NOTE | 2019-06-06 21:15 | NUR ---
PATIENT ADMITTED UNDER THE CARE OF DR. NUNEZ, WILL GO TO TELEMETRY UNIT ROOM 117, [facility] LIST COMPLETED, TRANSFERRED TO UNIT VIA SABA MACKEY AT TIME OF TRANSFER, BEDSIDE REPORT GIVEN TO DEMARIO PATEL.
[2019-06-06 21:50] VITALS: BP 144/90
--- NOTE | 2019-06-06 21:50 | NUR ---
RECIEVED PT AAOX4 , NID , WITH IV SITES INTACT AND PATENT , WITH HEMODIALYSIS ACCESS ( 1 IN THE FA AND ANOTHER 1 IS ON ABD.) WALKABLE BUT WITH ASSISTANCE DUE TO ( LEFT EYE CATARACT AND RIGHT EYE WITH DAMAGED WITH GLAUCOMA ) WITH PER RECTAL ABCESS BUT REFUSED TO PHOTO IT. PLAN OF CARE DISCUSSED AND VERBALIZE UNDERSTANDING , CALL LIGHT WITHIN REACH , ON SAFETY / FALL PRECAUTION PROTOCOL . ADMISSION ASSESSMENT DONE , MRSA COLLECTED AND SENT TO LAB , FOR OR JACQUI. , ON NPO POST MN INSTRUCTED TO PT . WILL CONT. TO MONITOR. Addendum: 06/07/19 at 0315 by Kizzy Pal RN BP RECHECKED 150/87
[2019-06-06] MEDS ORDERED: DEXTROSE 50% 50 ML SYR IVP PRN (22:05)
[2019-06-07] VITALS: BP 150/90
--- NOTE | 2019-06-07 | NUR ---
MADE ROUNDS , NO DISTRESS NOTED AT THIS TIME.
[2019-06-07 04:00] VITALS: BP 160/90
[2019-06-07] MEDS: cloNIDine 0.1 MG TAB PO PRN ×2 (05:20→09:15)
[2019-06-07] MEDS ORDERED: PIPERACILLIN/TAZOBACTAM 2.25 GM VIAL IV ONE (05:41)
[2019-06-07] MEDS: PANTOPRAZOLE 40 MG TABEC PO SCH (06:00)
--- NOTE | 2019-06-07 06:34 | NUR ---
CALLED [facility] AND TALKED TO ДМИТРИЙ REGARDING HEMODIALYSIS ORDER TODAY FOR THIS PT.
[2019-06-07] MEDS: BLOOD GLUCOSE MONITORING 1 DEV DEV FS SCH ×4 (06:38→21:16)
[2019-06-07] MEDS ORDERED: PIPERACILLIN/TAZOBACTAM 2.25 GM in DEXTROSE 5% 50 ML IV SCH ×2 (07:00→21:00)
--- NOTE | 2019-06-07 07:35 | NUR ---
RECEIVED HAND OFF REPORT FROM PM RN PT OFF THE UNIT FOR CT OF ABD AND PELVIS. DIALYSIS NURSE IS AWARE OF DIALYSIS TODAY WILL GREET PATIENT WHEN PT ARRIVES BACK FROM RADIOLOGY
--- NOTE | 2019-06-07 07:53 | NUR ---
PT ARRIVED BACK ON UNIT FROM CT ABDOMEN AND PELVIS PT AWAKE IN BED PT APPEARS STABLE AND IN NO APPARENT DISTRESS. ALL SAFETY MEASURES ARE IN PLACE WILL CONTINUE TO MONITOR
--- NOTE | 2019-06-07 07:59 | NUR ---
OBTAINED CONSENT FOR HEMODIALYSIS. PLACED IN CHART
--- NOTE | 2019-06-07 08:05 | NUR ---
DIALYSIS NURSE IS AT BEDSIDE. STARTING DIALYSIS PT IS AWAKE IN BED PT APPEARS STABLE AND IN NO APPARENT DISTRESS.
--- NOTE | 2019-06-07 08:24 | NUR ---
PATIENT HAS BEEN SCREENED AND CATEGORIZED HIGH NUTRITION RISK. PATIENT WILL BE SEEN WITHIN 1-2 DAYS OF ADMISSION. 06/07/19-06/08/[address]
[2019-06-07 08:25] VITALS: BP 162/94
[2019-06-07] MEDS: CARVEDILOL 12.5 MG TAB PO SCH ×2 (09:00→21:23)
[2019-06-07] MEDS: LACTOBACILLUS RHAMNOSUS GG 1 EACH CAP PO SCH (09:14)
[2019-06-07] MEDS: DOCUSATE SODIUM 100 MG GELCAP PO SCH ×2 (09:15→21:23)
[2019-06-07] MEDS: VIT-B COMP/VIT-C/FOLIC ACID 1 TAB PO SCH (09:15)
[2019-06-07] MEDS: FOLIC ACID 1 MG TAB PO SCH (09:15)
[2019-06-07 12:30] VITALS: BP 176/81
--- NOTE | 2019-06-07 14:00 | NUR ---
PT HAS BEEN TAKEN OFF THE UNIT FOR OR PROCEDURE.
[2019-06-07] MEDS: BUPIVACAINE-MPF 0.25% 30 ML VIAL INJ ONE ×2 (14:21→15:52)
[2019-06-07] MEDS ORDERED: LIDOCAINE 2% 100 MG/5 ML UJET TP ONE (14:24)
[2019-06-07] MEDS ORDERED: PROPOFOL 200 MG/20 ML VIAL IV ONE (15:06)
[2019-06-07] MEDS ORDERED: SEVOFLURANE 250 ML BTL INH ONE (15:06)
--- NOTE | 2019-06-07 15:06 | NUR ---
06/07/19 RD INITIAL ASSESSMENT COMPLETED PLEASE REFER TO NUTRITION ASSESSMENT UNDER CARE ACTIVITY FOR ESTIMATED NUTRITIONAL NEEDS. 1. CONTINUE NPO MEDICALLY NECESSARY 2. WHEN PATIENT IS MEDICALLY STABLE CONSIDER ADVANCING DIET TO RENAL AND CCHO [address] PROVIDED VERBAL NUTRITION EDUCATION 4. RD TO FOLLOW-UP 3-5 DAYS, MODERATE RISK ANGELICA PICKARD RD
[2019-06-07] MEDS ORDERED: MIDAZOLAM 2 MG/2 ML VIAL ONE (15:10)
[2019-06-07] MEDS ORDERED: fentaNYL 0.05 MG/ML VIAL ONE (15:11)
--- NOTE | 2019-06-07 15:24 | NUR ---
SEEN BY WITH ORDER TO FLUSH PERITONEAL DIALYSIS ACCESS TOMORROW, PAGED CHOE AND MADE AWARE.
[2019-06-07] MEDS ORDERED: NACL 0.9% 1,000 ML IV SCH (15:31)
[2019-06-07] MEDS ORDERED: HYDROmorphone 1 MG/ML AMP IVP PRN (15:35)
[2019-06-07] MEDS ORDERED: ONDANSETRON 4 MG/2 ML VIAL IVP PRN (15:35)
[2019-06-07] MEDS ORDERED: diphenhydrAMINE 50 MG/ML VIAL IVP PRN (15:35)
[2019-06-07] MEDS ORDERED: BLOOD GLUCOSE MONITORING 1 DEV DEV FS ONE (15:35)
--- NOTE | 2019-06-07 16:21 | NUR ---
PT STILL IN SURGERY @15:45. WILL DO ECHO TOMORROW. NOTIFIED DR. MOSLEY.
[2019-06-07 16:25] VITALS: BP 164/82
--- NOTE | 2019-06-07 16:40 | NUR ---
PT ARRIVED BACK ON THE UNIT FROM PROCEDURE PT IS AWAKE IN BED PT APPEARS STABLE AND IN NO APPARENT DISTRESS. ALL SAFETY MEASURES ARE IN PLACE AND WILL CONTINUE TO MONITOR, PT DAUGHTER IS AT BEDSIDE. POST OP VITALS SHEET HAS BEEN STARTED.
--- NOTE | 2019-06-07 19:34 | NUR ---
ENDORSED PT TO PM RN PT APPEARS STABLE AND IN NO APPARENT DISTRESS. ALL SAFETY MEASURES ARE IN PLACE
--- NOTE | 2019-06-07 19:35 | NUR ---
Received endorsement from AM shift RN; patient is talking with friend. Introduced self, updated board. No SOB or distress noted, on room air. IV sites noted on left forearm, 20 gauge and left hand, 22 gauge, saline locked. Patient s/p I and D. AV fistula noted on right arm. Bed in the lowest position, call light within reach. Initial assessment done. Will continue to monitor.
[2019-06-07 20:00] VITALS: BP 154/72
[2019-06-07] MEDS: INSULIN LANTUS 100 UNITS/ML 10 ML VIAL SUBQ SCH (21:20)
--- NOTE | 2019-06-07 21:20 | NUR ---
Vitals taken, due meds given. No distress noted.
[2019-06-07] MEDS: ATORVASTATIN 20 MG TAB PO SCH (21:23)
[2019-06-07] MEDS: PIPERACILLIN/TAZOBACTAM 2.25 GM in DEXTROSE 5% 50 ML IV SCH (21:24)
[2019-06-07] MEDS: INSULIN LISPRO SLIDING SCALE 100 UNITS/ML VIAL SUBQ PRN (21:35)
--- NOTE | 2019-06-07 23:45 | NUR ---
Vitals taken, no distress noted.
[2019-06-08] VITALS: BP 161/86
--- NOTE | 2019-06-08 02:05 | NUR ---
Rounds done; patient asleep, eyes closed, visible chest rise and fall noted.
[2019-06-08 04:00] VITALS: BP 161/91
[2019-06-08] MEDS: PIPERACILLIN/TAZOBACTAM 2.25 GM in DEXTROSE 5% 50 ML IV SCH ×3 (04:19→21:17)
[2019-06-08] MEDS: cloNIDine 0.1 MG TAB PO PRN ×2 (04:29→23:48)
--- NOTE | 2019-06-08 04:55 | NUR ---
Vitals taken, no SOB or distress noted.
[2019-06-08] MEDS: PANTOPRAZOLE 40 MG TABEC PO SCH (06:04)
[2019-06-08] MEDS: BLOOD GLUCOSE MONITORING 1 DEV DEV FS SCH ×4 (06:04→21:17)
--- NOTE | 2019-06-08 06:30 | NUR ---
Vitals stable, due meds given. Will endorse to AM shift RN for continuity of care.
--- NOTE | 2019-06-08 07:35 | NUR ---
RECEIVED HAND OFF REPORT FROM PM RN PT APPEARS STABLE AND IN NO APPARENT DISTRESS. ALL SAFETY MEASURES ARE IN PLACE WILL CONTINUE TO MONITOR. PT AWAKE IN BED,
[2019-06-08 07:54] LABS: MAGNESIUM 2.6 mg/dL (1.8-2.4); PHOSPHORUS 4.9 mg/dL (2.5-4.9)
[2019-06-08 07:55] LABS: BASOPHILS % (AUTO) 0.6 % (0.0-2.0); EOSINOPHILS # (AUTO) 0.2 K/uL (0-0.4); EOSINOPHILS % (AUTO) 3.1 % (0.0-4.0); HEMATOCRIT 29.7 % (36-52); HEMOGLOBIN 10.1 g/dL (12.0-18.0); LYMPHOCYTES # (AUTO) 1.4 K/uL (2.0-11.5); MEAN CORPUSCULAR HEMOGLOBIN 34 pg (27-31); MEAN CORPUSCULAR HGB CONC 34 g/dL (33-37); MEAN CORPUSCULAR VOLUME 98.9 fL (80-94); MONOCYTES # (AUTO) 0.6 K/uL (0.8-1.0); MONOCYTES % (AUTO) 10.3 % (1.7-9.3); NEUTROPHILS # (AUTO) 3.9 K/uL (1.8-7.7); PLATELET COUNT (AUTO) 169 K/uL (140-450); WHITE BLOOD COUNT (AUTO) 6.2 K/uL (4.8-10.8)
[2019-06-08 07:59] LABS: ANION GAP 14.2 (8-16); CARBON DIOXIDE 28.9 mmol/L (21-32); POTASSIUM 5.1 mmol/L (3.5-5.1)
[2019-06-08 08:05] VITALS: BP 176/88
[2019-06-08 08:05] LABS: CREATININE 8.9 mg/dL (0.7-1.3)
[2019-06-08] MEDS: DOCUSATE SODIUM 100 MG GELCAP PO SCH ×2 (08:52→21:20)
[2019-06-08] MEDS: LACTOBACILLUS RHAMNOSUS GG 1 EACH CAP PO SCH (08:52)
[2019-06-08] MEDS: VIT-B COMP/VIT-C/FOLIC ACID 1 TAB PO SCH (08:52)
[2019-06-08] MEDS: FOLIC ACID 1 MG TAB PO SCH (08:52)
[2019-06-08] MEDS: amLODIPine 5 MG TAB PO SCH (08:53)
[2019-06-08] MEDS: CARVEDILOL 12.5 MG TAB PO SCH ×2 (08:53→21:20)
--- NOTE | 2019-06-08 09:53 | NUR ---
FREQUENT ROUNDING ON PT PT APPEARS STABLE AND IN NO APPARENT DISTRESS. ALL SAFETY MEASURES ARE IN PLACE WILL CONTINUE TO MONITOR
--- NOTE | 2019-06-08 11:23 | NUR ---
FREQUENT ROUNDING ON PT PT APPEARS STABLE AND IN NO APPARENT DISTRESS. ALL SAFETY MEASURES ARE IN PLACE WILL CONTINUE TO MONITOR
[2019-06-08 12:05] VITALS: BP 174/86
[2019-06-08] MEDS: INSULIN LISPRO SLIDING SCALE 100 UNITS/ML VIAL SUBQ PRN ×2 (12:16→21:28)
[2019-06-08] MEDS: HYDROcodone/APAP 10/325 MG 1 TAB TAB PO PRN (13:03)
--- NOTE | 2019-06-08 14:20 | NUR ---
WOUND CARE PROVIDED WITH OSTEOPATHY DOCTOR PRINCE. PHOTOS TAKEN AND PLACED IN CHART PT STABLE AND IN NO APPARENT DISTRESS.
--- NOTE | 2019-06-08 14:27 | NUR ---
WOUND CARE EVALUATION NOTES: REASON FOR EVALUATION: S/P I&D CALIXTO-ANAL ABSCESS WOUND ASSESSMENT DONE ON WITH THIS 39 Y/O MALE PATIENT S/P I&D. PT. PT IS AAX4. DRESSING CHANGED AND WOUND CARE INSTRUCTIONS GIVEN TO PT. PT. VERBALIZES UNDERSTANDING. WILL RECOMMEND HOME HEALTH WOUND CARE. PT. STATE HIS BROTHER WILL BE THE ONE TO HELP FOR WOUND DRESSING CHANGED IF NEEDED.POC DISCUSSED WITH PRIMARY RN. INTEGUMENTARY: -SURGICAL WOUND TO CALIXTO-ANAL, 10X5X1.5CM WITH UNDERMINING 12-2 O'CLOCK 3CM, WOUND BED 100% GRANULATING TISSUE WITH MUSCLE OBSERVED, SMALL AMOUNT SANGUINEOUS BLEEDING, NO ODOR, WOUND EDGE WELL DEFINED,OVAL SHAPE, WITH CALIXTO-WOUND SKIN DRY AND INTACT. RECOMMENDATIONS: -HOME HEALTH FOLLOW UP WITH WOUND CARE UPON DISCHARGE. -CLEANSE SURGICAL WOUND TO CALIXTO-ANAL, PAT DRY, PACK A LARGE SIZE ADAPTIC DRESSING, AND COVER WITH DRY DRESSING CHANGE QM-W-F AND PRN IF SOILING. -KEEP AREA DRY AND CLEAN AT ALL TIMES -PLEASE FOLLOW UP WITH SURGEON 7-10 DAYS AFTER DISCHARGED PLEASE CONTACT WOUND CARE NURSE FOR ANY QUESTIONS AND CHANGES IN SKIN CONDITION.
[2019-06-08] MEDS ORDERED: GAUZE TP PRN (14:35)
[2019-06-08 15:16] LABS: FOLIC ACID > 20.00 ng/mL (>3.0)
[2019-06-08 16:05] VITALS: BP 176/88
--- NOTE | 2019-06-08 16:34 | NUR ---
FREQUENT ROUNDING ON PT PT APPEARS STABLE AND IN NO APPARENT DISTRESS. ALL SAFETY MEASURES ARE IN PLACE WILL CONTINUE TO MONITOR
--- NOTE | 2019-06-08 19:21 | NUR ---
ENDORSED PT TO PM RN PT AWAKE IN BED PT APPEARS STABLE AND IN NO APPARENT DISTRESS. ALL SAFETY MEASURES ARE IN PLACE
--- NOTE | 2019-06-08 19:22 | NUR ---
Received endorsement from AM shift RN; patient is talking with friend. Introduced self, updated board. No SOB or distress noted, on room air. IV sites noted on left forearm, 20 gauge, saline locked. AV fistula noted on right arm. Patient s/p I&D. Bed in the lowest position, call light within reach. Initial assessment done. Will continue to monitor.
[2019-06-08] MEDS: ATORVASTATIN 20 MG TAB PO SCH (21:20)
[2019-06-08] MEDS: INSULIN LANTUS 100 UNITS/ML 10 ML VIAL SUBQ SCH (21:25)
--- NOTE | 2019-06-08 21:40 | NUR ---
Due meds given, tolerated well.
--- NOTE | 2019-06-08 23:40 | NUR ---
Vitals take; patient noted with elevated BP. Will administer PRN Catapres for elevated BP.
[2019-06-09] VITALS: BP 174/90
--- NOTE | 2019-06-09 02:40 | NUR ---
Checks made; patient asleep, eyes closed, visible chest rise and fall noted.
--- NOTE | 2019-06-09 04:20 | NUR ---
Rounds done; patient resting comfortably, no distress noted.
[2019-06-09] MEDS: PIPERACILLIN/TAZOBACTAM 2.25 GM in DEXTROSE 5% 50 ML IV SCH ×2 (05:30→13:10)
[2019-06-09] MEDS: PANTOPRAZOLE 40 MG TABEC PO SCH (05:31)
[2019-06-09] MEDS: BLOOD GLUCOSE MONITORING 1 DEV DEV FS SCH ×2 (05:34→12:02)
--- NOTE | 2019-06-09 06:05 | NUR ---
Vitals stable, due meds given. Will endorse to AM shift RN for continuity of care.
--- NOTE | 2019-06-09 07:15 | NUR ---
RECEIVED REPORT FROM CAUL PULLER NURSE YOJANA FOR CONTINUITY OF CARE. PT IN STABLE CONDITION. RESPIRATIONS EVEN AND UNLABORED. IV INTACT AND PATENT. SAFETY MEASURES IN PLACE. BED IN LOW POSITION. CALL LIGHT AT BEDSIDE. WILL CONTINUE TO MONITOR.
--- NOTE | 2019-06-09 07:52 | NUR ---
DIALYSIS NURSE AT BEDSIDE AT THIS TIME. PT IN STABLE CONDITION.
[2019-06-09 07:53] LABS: BASOPHILS % (AUTO) 0.5 % (0.0-2.0); EOSINOPHILS # (AUTO) 0.3 K/uL (0-0.4); HEMOGLOBIN 9.7 g/dL (12.0-18.0); LYMPHOCYTES # (AUTO) 1.9 K/uL (2.0-11.5); LYMPHOCYTES % (AUTO) 35.3 % (20.5-51.1); MEAN CORPUSCULAR HEMOGLOBIN 33 pg (27-31); MEAN CORPUSCULAR HGB CONC 33 g/dL (33-37); MEAN CORPUSCULAR VOLUME 99.1 fL (80-94); MONOCYTES # (AUTO) 0.7 K/uL (0.8-1.0); MONOCYTES % (AUTO) 12.3 % (1.7-9.3); NEUTROPHILS # (AUTO) 2.5 K/uL (1.8-7.7); NEUTROPHILS % (AUTO) 45.9 % (42.2-75.2); PLATELET COUNT (AUTO) 158 K/uL (140-450); RED BLOOD CELL COUNT(AUTO) 2.93 MIL/uL (4.20-6.10); RED CELL DISTRIBUTION WIDTH 14.2 % (11.6-13.7); WHITE BLOOD COUNT (AUTO) 5.3 K/uL (4.8-10.8)
[2019-06-09 08:00] VITALS: BP 175/91
[2019-06-09 08:05] LABS: MAGNESIUM 2.6 mg/dL (1.8-2.4); PHOSPHORUS 6.5 mg/dL (2.5-4.9)
[2019-06-09 08:10] LABS: ANION GAP 13.7 (8-16); CARBON DIOXIDE 28.7 mmol/L (21-32); POTASSIUM 5.4 mmol/L (3.5-5.1)
[2019-06-09 08:16] LABS: CREATININE 11.2 mg/dL (0.7-1.3)
--- NOTE | 2019-06-09 08:16 | NUR ---
CRITICAL LAB CREAT 11.2 DIALYSIS IN PROGRESS AT THIS TIME.
--- NOTE | 2019-06-09 09:05 | NUR ---
DIALYSIS TREATMENT STOPPED AT THIS TIME PER PT REQUEST. WILL NOTIFY
[2019-06-09] MEDS: VIT-B COMP/VIT-C/FOLIC ACID 1 TAB PO SCH (09:14)
[2019-06-09] MEDS: LACTOBACILLUS RHAMNOSUS GG 1 EACH CAP PO SCH (09:14)
[2019-06-09] MEDS: CARVEDILOL 12.5 MG TAB PO SCH (09:14)
[2019-06-09] MEDS: DOCUSATE SODIUM 100 MG GELCAP PO SCH (09:15)
[2019-06-09] MEDS: amLODIPine 5 MG TAB PO SCH (09:15)
[2019-06-09] MEDS: FOLIC ACID 1 MG TAB PO SCH (09:15)
--- NOTE | 2019-06-09 10:43 | NUR ---
RECEIVED A CALL FROM MARTINEZ MORE OF SCAN SR STATED PT DOESN'T WANT TO CONTINUE WITH [facility] AND TO REQUEST [facility] AND [facility] , CM TO FOLLOW
--- NOTE | 2019-06-09 10:59 | NUR ---
FAXED THE REQUEST FOR [facility] AND , LEFT A MESSAGE FOR [facility]
--- NOTE | 2019-06-09 11:19 | NUR ---
[facility] ACCEPTED PT [phone] STATED WILL START THE VISIT TOMORROW
--- NOTE | 2019-06-09 11:30 | NUR ---
Commercial Representative Note: I met with patient at bedside. Patient is in agreement with home health services for wound care. I informed him [facility] is going to provide services for him. He verbalized understanding.
--- NOTE | 2019-06-09 11:33 | NUR ---
PT LYING IN BED SLEEP AT THIS TIME. RESPIRATIONS EVEN AND UNLABORED. BED IN LOW POSITION. CALL LIGHT ON. WILL CONTINUE TO MONITOR.
[2019-06-09] MEDS: HYDROcodone/APAP 10/325 MG 1 TAB TAB PO PRN (12:08)
[2019-06-09] MEDS: INSULIN LISPRO SLIDING SCALE 100 UNITS/ML VIAL SUBQ PRN (12:15)
[2019-06-09] MEDS ORDERED: GAUZE TP SCH (13:00)
--- NOTE | 2019-06-09 13:15 | NUR ---
WOUND ASSESSMENT DONE AT THIS TIME. PT TOLERATED WELL.
[2019-06-09] MEDS ORDERED: AMOX-999 PO (14:24)
[2019-06-09] MEDS ORDERED: AMLO5TAB6 PO (14:24)
[2019-06-09] MEDS ORDERED: DOCU-299 PO (14:24)
[2019-06-09] MEDS ORDERED: HYDR-5092 PO (14:24)
--- NOTE | 2019-06-09 15:10 | NUR ---
PT LYING IN BED SLEEP AT THIS TIME. RESPIRATIONS EVEN AND UNLABORED. BED IN LOW POSITION. CALL LIGHT ON. WILL CONTINUE TO MONITOR.
--- NOTE | 2019-06-09 16:25 | NUR ---
PT GETTING DRESSED IN PREPARATION OF DISCHARGE.
--- NOTE | 2019-06-09 16:45 | NUR ---
GAVE DISCHARGE INSTRUCTIONS AND PRESCRIPTIONS TO TAKE TO HOME PHARMACY AND ADJUNCT PHILOSOPHY FACULTY NEW PRESCRIPTIONS. PT AND BROTHER VERBALIZED UNDERSTANDING OF INSTRUCTIONS. IV REMOVED, LUMEN INTACT. ID BAND REMOVED. PT WHEELED TO LOBBY IN STABLE CONDITION, WHERE BROTHER HAS VEHICLE WAITING.
== END 2019-06-09 16:55 | disposition home health service (06) | DRG 673 ==
LOC: MED 18:05 → MTU 20:28
PROVIDERS: ADMIT General Practice; ATTEND General Practice
PROC: 5A1D70Z Performance of Urinary Filtration, Intermittent, Less than 6 Hours Per Day (ICD-10-PCS; 2019-06-07)
PROC: 0JBB0ZZ Excision of Perineum Subcutaneous Tissue and Fascia, Open Approach (ICD-10-PCS; principal; 2019-06-07 14:05)
PROC: 5A1D70Z Performance of Urinary Filtration, Intermittent, Less than 6 Hours Per Day (ICD-10-PCS; 2019-06-09)
DX: N17.0 Acute kidney failure with tubular necrosis (principal); E43 Unspecified severe protein-calorie malnutrition; K61.2 Anorectal abscess; I13.2 Hypertensive heart and chronic kidney disease with heart failure and with stage 5 chronic kidney disease, or end stage renal disease; N18.6 End stage renal disease; E11.22 Type 2 diabetes mellitus with diabetic chronic kidney disease; D64.9 Anemia, unspecified; E11.319 Type 2 diabetes mellitus with unspecified diabetic retinopathy without macular edema; E11.65 Type 2 diabetes mellitus with hyperglycemia; E11.42 Type 2 diabetes mellitus with diabetic polyneuropathy; I50.9 Heart failure, unspecified; E66.9 Obesity, unspecified; Z99.2 Dependence on renal dialysis; Z68.31 Body mass index [BMI] 31.0-31.9, adult; Z88.8 Allergy status to other drugs, medicaments and biological substances; Z83.3 Family history of diabetes mellitus; Z82.49 Family history of ischemic heart disease and other diseases of the circulatory system; Z87.891 Personal history of nicotine dependence
CPT/HCPCS: 36415; 71045; 72192; 80048; 80053; 82150; 82607; 82746; 82948; 83036; 83605; 83690; 83735; 83880; 84100; 84439; 84443; 84484; 85025; 85045; 85610; 85730; 86886; 86900; 86901; 87040; 87070; 87075; 87081; 87205; 88304; 93005; 96365; 99285; J1815; J2250; J2543; J2704; J3010; J3490; J7030; J7060; Q0092

== ENCOUNTER 2019-08-26 12:39 | Inpatient (IN) | payer OTHER ==
[~2019-08-26] VITALS: Ht 175.3 cm; Wt 72.6 kg
[~2019-08-26 12:39] MED LIST changes: +AMLO5TAB6 PO; +AMOX-999 PO; -DILT-135; +DOCU-299 PO; +HYDR-5092 PO; -IMO2 PO; -[UNRECOGNIZED DRUG - CODE] SC
[2019-08-26 12:53] VITALS: BP 122/77
--- NOTE | 2019-08-26 13:18 | NUR ---
39/M TO ED WITH REDNESS, PAIN, AND WARMTH TO SITE OF PERETONIEAL DIALYISIS CATH. PT REPORTS FEELING S/S X 1 DAY AGO. WENT TO AND COMPLETED DIALYSIS (T, TH, SAT) AND REPORTED THAT HE RECIEVED 1G OF V[facility]COMYCIN AT [facility]. SITE IS REDDENED, AND WARM TO TOUCH. PT REPORTS PAIN UPON PALPATION. IN BED FOR MSE.
[2019-08-26 13:23] LABS: BASOPHILS # (AUTO) 0.1 K/uL (0.00-0.22); BASOPHILS % (AUTO) 0.8 % (0.0-2.0); EOSINOPHILS # (AUTO) 0.2 K/uL (0-0.4); EOSINOPHILS % (AUTO) 2.4 % (0.0-4.0); HEMATOCRIT 38.6 % (36-52); HEMOGLOBIN 12.4 g/dL (12.0-18.0); LYMPHOCYTES # (AUTO) 1.6 K/uL (2.0-11.5); MEAN CORPUSCULAR HEMOGLOBIN 32 pg (27-31); MEAN CORPUSCULAR HGB CONC 32 g/dL (33-37); MEAN CORPUSCULAR VOLUME 98.7 fL (80-94); MONOCYTES # (AUTO) 0.8 K/uL (0.8-1.0); MONOCYTES % (AUTO) 9.5 % (1.7-9.3); NEUTROPHILS # (AUTO) 5.6 K/uL (1.8-7.7); NEUTROPHILS % (AUTO) 67.3 % (42.2-75.2); PLATELET COUNT (AUTO) 166 K/uL (140-450); RED BLOOD CELL COUNT(AUTO) 3.91 MIL/uL (4.20-6.10); RED CELL DISTRIBUTION WIDTH 15.3 % (11.6-13.7); WHITE BLOOD COUNT (AUTO) 8.3 K/uL (4.8-10.8)
[2019-08-26 13:33] LABS: ANION GAP 16.9 (8-16); CARBON DIOXIDE 29.4 mmol/L (21-32); POTASSIUM 5.3 mmol/L (3.5-5.1)
[2019-08-26 13:34] LABS: CREATININE 9.9 mg/dL (0.7-1.3)
--- NOTE | 2019-08-26 13:52 | NUR ---
PT AT RADIOLOGY
--- NOTE | 2019-08-26 14:01 | NUR ---
PT RETURNED FROM CT AT THIS TIME
[2019-08-26] MEDS ORDERED: NACL 0.9% 500 ML IV ONE (14:40)
[2019-08-26] MEDS ORDERED: VANCOMYCIN 1,000 MG in DEXTROSE 5% 250 ML IV ONE (14:40)
[2019-08-26] MEDS ORDERED: HYDR-1100 PO (14:58)
[2019-08-26] MEDS ORDERED: cefTRIAXone 1,000 MG VIAL ONE (15:11)
[2019-08-26] MEDS ORDERED: VANCOMYCIN 1,000 MG VIAL ONE (15:11)
--- NOTE | 2019-08-26 15:23 | NUR ---
SPOKE WITH KATY FROM ADMITTING; PT HAS PMD JESUS MANUEL DALEY. KATY TO CALL PMD AND UPDATE WITH STATUS.
--- NOTE | 2019-08-26 15:50 | NUR ---
PT RESTING IN BED, TALKING TO FAMILY ON PHONE. PT DENIES PAIN OR N/V AT THIS TIME. PT TOLERATING ABX AND BOLUS WELL. NO S&S OF FLUID OVERLOAD. PT STATED THAT HE ALREADY NOTIFED PCP AND FAMILY OF ADMISSION.
[2019-08-26] MEDS ORDERED: DEXTROSE 5% 250 ML IV ONE ×2 (16:00→16:01)
[2019-08-26] MEDS ORDERED: DEXTROSE 50% 50 ML SYR IVP ONE (16:30)
[2019-08-26] MEDS ORDERED: ACETAMINOPHEN 325 MG TAB PO PRN (17:10)
[2019-08-26] MEDS ORDERED: ONDANSETRON 4 MG/2 ML VIAL IVP PRN (17:10)
--- NOTE | 2019-08-26 17:30 | NUR ---
PATIENT ARRIVED ON THE UNIT AN ADMIT FROM ER, PATIENT REPORT GIVEN BY ER NURSE FOR CONTINUATION OF CARE. PATIENT ORIENTED TO THE ROOM, CALL LIGHT AND UNIT. BED IN LOW POSITION, ADMIT VITAL SIGNS TAKEN: BP 174/70, HR 86, TEMP 98.0 (ORAL), RR 18, SPO2 98%. RIGHT FOREARM SHUNT. IV RUNNING ZOSYN AT 165 ML/HR. MRSA SWAB COMPLETED. WILL CONTINUE TO MONITOR.
--- NOTE | 2019-08-26 17:40 | NUR ---
Patient will be admitted to care of [facility]. Admited to TELE. Will go to room 111B. Belongings list completed. Report to LEILANI HANKS.
[2019-08-26 18:20] LABS: FREE T4 (FREE THYROXINE) 0.96 ng/dL (0.76-1.46); MAGNESIUM 2.6 mg/dL (1.8-2.4); PHOSPHORUS 5.2 mg/dL (2.5-4.9); THYROID STIMULATING HORMONE 1.15 uIU/mL (0.34-3.74)
[2019-08-26] MEDS ORDERED: DEXTROSE 50% 50 ML SYR IVP PRN (19:05)
--- NOTE | 2019-08-26 19:20 | NUR ---
RECEIVED BEDSIDE REPORT FROM AM SHIFT FOR CONTINUITY OF CARE. PATIENT ORIENTED TO THE ROOM, AWAKE, ALERT ORIENTED X 4, AMBULATORY PT IS LEGALLY BLIND BOTH EYES FALL RISK PRECAUTION IN PLACE.W/ CANE USED FOR THE BLIND. WITH RIGHT FOREARM SHUNT FOR DIALYSIS. HD T TH SAT. WITH IV SITE ON THE LEFT FOREARM ZOSYN DONE. MRSA SWAB COMPLETED. WILL CONTINUE TO MONITOR.
--- NOTE | 2019-08-26 19:21 | NUR ---
PLACED IV SITE ON SALINE LOCK, FLUSHED IT FIRST THEN CAPPED. NS AT 10 ML/HR READY ONLY TO BE USED FOR ANTIBIOTIC TO KEEP VEIN OPEN.
[2019-08-26 20:00] VITALS: BP 159/83
--- NOTE | 2019-08-26 20:00 | NUR ---
VITAL SIGNS TAKEN. NOTED THAT BP WAS 159/[address] KING[address] PER PT HE SAID THAT HIS COREG IS 30MG BID AT HOME, INFORMED DR. KING. Addendum: 08/27/19 at 0117 by Nehal Garcia RN AMEND 25 MG PO BID COREG
[2019-08-26] MEDS ORDERED: CARVEDILOL 12.5 MG TAB PO SCH (21:00)
[2019-08-26] MEDS ORDERED: DOCUSATE SODIUM 100 MG GELCAP PO SCH (21:00)
[2019-08-26] MEDS: hydrALAZINE 25 MG TAB PO SCH (21:24)
[2019-08-26] MEDS: ATORVASTATIN 20 MG TAB PO SCH (21:24)
[2019-08-26] MEDS: DOCUSATE SODIUM 100 MG GELCAP PO SCH (21:28)
[2019-08-26] MEDS: HYDROcodone/APAP 7.5/325 MG 1 TAB PO PRN (21:33)
[2019-08-26] MEDS: BLOOD GLUCOSE MONITORING 1 DEV DEV FS SCH (21:38)
[2019-08-26] MEDS: INSULIN LISPRO SLIDING SCALE 100 UNITS/ML VIAL SUBQ PRN (21:40)
[2019-08-26] MEDS ORDERED: CARV25TA PO (21:54)
--- NOTE | 2019-08-26 21:57 | NUR ---
PATIENT REFUSED INSULIN- WASTED MEDICATION. PT REFUSED TO HAVE IT EXPLAINED THE RISKS AND BENEFITS INFORMED DR. KING
[2019-08-27] VITALS: BP 133/79
--- NOTE | 2019-08-27 | NUR ---
PT'S BP AT 12.5 MG COREG IS AT 133/79 NOW; HR 81. PT IS TOLERATING 12. 5 MG OF COREG AT THIS TIME. WILL INFORM DR. KING. NO URINE WAS OBTAINED FROM PT PER DR'S ORDER OF TO OBTAIN URINE. WILL INFORM DR. KING THAT PT DOES NOT PRODUCE URINE PER PT.
--- NOTE | 2019-08-27 02:15 | NUR ---
PT SLEEPING COMFORTABLY, NO RESPIRATORY DISTRESS NOTED; NO COMPLAINTS OF PAIN. WILL CONTINUE TO MONITOR.
[2019-08-27 03:52] VITALS: BP 135/85
--- NOTE | 2019-08-27 04:05 | NUR ---
PT STILL SLEEPING; WENT TO THE BATHROOM ONCE WITH STANDBY ASSIST USING HIS CANE FOR THE BLIND
[2019-08-27] MEDS: PANTOPRAZOLE 40 MG TABEC PO SCH (06:34)
[2019-08-27] MEDS: BLOOD GLUCOSE MONITORING 1 DEV DEV FS SCH ×4 (06:37→21:28)
--- NOTE | 2019-08-27 07:18 | NUR ---
ENDORSED TO NEXT SHIFT FOR CONTINUITY OF CARE. STILL PENDING NEPHRO CONSULT AND A HEMODIALYSIS FOR TODAY (IF INDICATED BY ) PT VITAL SIGNS WITHIN NORMAL LIMITS. ONLY HAD 1 EPISODE OF HIGH BLOOD PRESSURE AT 2000 LAST NIGHT AND WAS STABLE THEREAFTER.
--- NOTE | 2019-08-27 07:30 | NUR ---
RECEIVED BEDSIDE REPORT FROM CRM SYSTEM ADMINISTRATOR NURSE FOR CONTINUITY OF CARE. PT IS AWAKE AND RESTING ON BED AT THIS TIME. PT IS AAOX4, LEGALLY BLIND ON BOTH EYES. RESPIRATION EVEN AND UNLABORED ON RA. DENIED PAIN, SOB, NAUSEA AND VOMITING AT TIME. NO SIGNS OF DISTRESS NOTED. IV ON LFA 22G, CLEAN AND INTACT, SL. REDNESS ON PERITONEAL SITE AND ABD NOTED, LINE DRAW AROUND SITE, OTHER SKIN CLEAN AND DRY. RFA AV SHUNT NOTED, SIGN POSTED FOR NO BP AND VENIPUNCTURE. PATIENT IS CONTINENT AND AMBULATE TO BATHROOM WITH ASSIST. DISCUSSED PLAN OF CARE WITH PT AND PT VERBALIZED UNDERSTANDING. SAFETY MEASURES IN PLACE. BED IN LOW POSITION AND CALL LIGHT WITHIN REACH. INSTRUCTED PT TO USE THE CALL LIGHT FOR ANY ASSISTANCE AND PT WAS AWARE.
[2019-08-27] MEDS ORDERED: VANCOMYCIN PER PHARMACY MC PRN (07:35)
[2019-08-27 08:00] VITALS: BP 133/81
[2019-08-27 08:23] LABS: ANION GAP 18.7 (8-16); CARBON DIOXIDE 28.2 mmol/L (21-32); POTASSIUM 5.9 mmol/L (3.5-5.1)
[2019-08-27 08:25] LABS: CHOL/HDL RATIO 2.6 (1-4.5)
[2019-08-27 08:29] LABS: BASOPHILS # (AUTO) 0.1 K/uL (0.00-0.22); BASOPHILS % (AUTO) 0.6 % (0.0-2.0); EOSINOPHILS # (AUTO) 0.3 K/uL (0-0.4); EOSINOPHILS % (AUTO) 3.6 % (0.0-4.0); HEMATOCRIT 36.2 % (36-52); HEMOGLOBIN 11.7 g/dL (12.0-18.0); LYMPHOCYTES # (AUTO) 1.7 K/uL (2.0-11.5); LYMPHOCYTES % (AUTO) 18.2 % (20.5-51.1); MEAN CORPUSCULAR HEMOGLOBIN 32 pg (27-31); MEAN CORPUSCULAR HGB CONC 32 g/dL (33-37); MEAN CORPUSCULAR VOLUME 98.1 fL (80-94); MONOCYTES % (AUTO) 10.3 % (1.7-9.3); NEUTROPHILS # (AUTO) 6.4 K/uL (1.8-7.7); NEUTROPHILS % (AUTO) 67.3 % (42.2-75.2); PLATELET COUNT (AUTO) 166 K/uL (140-450); RED BLOOD CELL COUNT(AUTO) 3.69 MIL/uL (4.20-6.10); RED CELL DISTRIBUTION WIDTH 15.3 % (11.6-13.7); WHITE BLOOD COUNT (AUTO) 9.5 K/uL (4.8-10.8)
[2019-08-27 08:31] LABS: MAGNESIUM 2.5 mg/dL (1.8-2.4); PHOSPHORUS 7.6 mg/dL (2.5-4.9)
--- NOTE | 2019-08-27 08:41 | NUR ---
CALLED AND SPOKE WITH ДМИТРИЙ. INFORMED ДМИТРИЙ THAT PT HAS DIALYSIS ORDER FOR TODAY, ДМИТРИЙ WAS AWARE AND SAID "OK, THE RN IS ON THE WAY NOW."
[2019-08-27 08:58] LABS: CREATININE 11.5 mg/dL (0.7-1.3)
[2019-08-27] MEDS: hydrALAZINE 25 MG TAB PO SCH ×2 (09:00→20:53)
[2019-08-27] MEDS: CARVEDILOL 12.5 MG TAB PO SCH ×2 (09:00→20:54)
--- NOTE | 2019-08-27 09:00 | NUR ---
RECEIVED CRITICAL LAB FOR BUN 62 AND CR 11.5. NOTIFIED DR VIZCAINO AND DR VIZCAINO WAS AWARE. INFORMED DR THAT PIER WORKER ДМИТРИЙ IS AT BEDSIDE THIS TIME. NO ORDER RECEIVED AT THIS TIME.
--- NOTE | 2019-08-27 09:01 | NUR ---
OBTAINED CONSENT FOR HEMODIALYSIS. PT AWAKE AND RESTING ON BED AT THIS TIME. FACILITIES TECHNICIAN CHOE BY BEDSIDE. NO SIGNS OF DISTRESS NOTED. SAFETY MEASURES IN PLACE.
--- NOTE | 2019-08-27 09:10 | NUR ---
TALKED TO PICC LINE OFFICE RE THIS PT FOR INSERTION OF PICC LINE Addendum: 08/27/19 at 0916 by Geeta Calderón RN ABOVE NOTES CX WRONG PT
--- NOTE | 2019-08-27 09:35 | NUR ---
HOLD ALL AM MEDS DUE TO PT IS IN DIALYSIS. WILL ADMINISTER ONCE AFTER PT FINISHES DIALYSIS. WOOD LAST MAKER CHOE AT BEDSIDE. PT IS LYING ON BED RESTING. NO SIGNS OF DISTRESS NOTED. NOTIFIED DR VIZCAINO ON REGARDS AM MEDS HOLD AND DR VIZCAINO WAS AWARE.
--- NOTE | 2019-08-27 11:31 | NUR ---
PT IS STILL IN DIALYSIS. PATIENT ACCOUNT REPRESENTATIVE CHOE IS MONITORING PT AT BEDSIDE. NO SIGNS OF DISTRESS NOTED. TELE MONITOR ATTACHED. SAFETY MEASURES IN PLACE.
[2019-08-27 12:00] VITALS: BP 98/62
[2019-08-27] MEDS: INSULIN LISPRO SLIDING SCALE 100 UNITS/ML VIAL SUBQ PRN ×3 (12:35→21:31)
--- NOTE | 2019-08-27 12:35 | NUR ---
PT RECEIVED HIS LUNCH TRAY, ADMINISTERED 4 UNITS OF HUMALOG ACCORDING TO SLIDING SCALE, PT TOLERATED WELL. PT IS STILL IN DIALYSIS. ENERGY RATER CHOE BY BEDSIDE. NO SIGNS OF DISTRESS NOTED. TELE MONITOR ATTACHED. SAFETY MEASURES IN PLACE.
[2019-08-27] MEDS: VIT-B COMP/VIT-C/FOLIC ACID 1 TAB PO SCH (13:17)
[2019-08-27] MEDS: DOCUSATE SODIUM 100 MG GELCAP PO SCH ×2 (13:17→20:53)
--- NOTE | 2019-08-27 13:17 | NUR ---
ADMINISTERED AM SCHEDULED MED, COLACE, FOLIC ACID, B -COMPLEX, HOLD ALL BP MEDS, AND PT REFUSED HEPARIN SUBQ, MED ED PROVIDED TO PT AND PT VERBALIZED UNDERSTANDING. PT AWAKE AND RESTING ON BED AT THIS TIME. NO SIGNS OF DISTRESS NOTE. TELE MONITOR ATTACHED. SAFETY MEASURES IN PLACE. BED IN LOW POSITION AND CALL LIGHT WITHIN REACH. INSTRUCTED PT TO USE THE CALL LIGHT FOR ANY ASSISTANCE AND PT WAS AWARE.
[2019-08-27] MEDS: FOLIC ACID 1 MG TAB PO SCH (13:18)
--- NOTE | 2019-08-27 13:42 | NUR ---
INFORMED DR VIZCAINO THAT PT HAS HOME MED INSULIN GLARGINE WITH PHARMACY AND A DOSE IS DUE TONIGHT. PER DR VIZCAINO, HE WILL INPUT THE ORDER.
--- NOTE | 2019-08-27 13:58 | NUR ---
ADMINISTERED ANTIBIOTIC VIA IVPB PER MD ORDER, MED ED PROVIDED TO PT AND PT VERBALIZED UNDERSTANDING. PT IS AWAKE AND TALKING ON THE PHONE AT THIS TIME. NO SIGNS OF DISTRESS NOTED. TELE MONITOR ATTACHED. SAFETY MEASURES IN PLACE. BED IN LOW POSITION AND CALL LIGHT WITHIN REACH. INSTRUCTED PT TO USE THE CALL LIGHT FOR ANY ASSISTANCE AND PT WAS AWARE.
--- NOTE | 2019-08-27 14:06 | NUR ---
PATIENT HAS BEEN SCREENED AND CATEGORIZED MODERATE NUTRITION RISK. PATIENT WILL BE SEEN WITHIN 3-5 DAYS OF ADMISSION. 08/29/19 - 08/31/19 CINDY MCCORMACK MBA, RD
--- NOTE | 2019-08-27 15:36 | NUR ---
PT AWAKE AND TALKING ON HIS PHONE AT THIS TIME. DENIED PAIN, SOB, NAUSEA AND VOMITING. NO SIGNS OF DISTRESS NOTED. SAFETY MEASURES IN PLACE. BED IN LOW POSITION AND CALL LIGHT WITHIN REACH. INSTRUCTED PT TO USE THE CALL LIGHT FOR ANY ASSISTANCE AND PT WAS AWARE.
[2019-08-27 16:00] VITALS: BP 142/78
--- NOTE | 2019-08-27 17:10 | NUR ---
DR POTTER IS ASSESSING AND TALKING TO PT AT BEDSIDE. NO SIGNS OF DISTRESS NOTED. SAFETY MEASURES IN PLACE.
--- NOTE | 2019-08-27 17:44 | NUR ---
PT RECEIVED HIS DINNER TRAY, ADMINISTERED 2 UNITS OF HUMALOG FOR BLOOD GLUCOSE 196, MED ED PROVIDED TO PT, AND PT VERBALIZED UNDERSTANDING. PT IS HAVING DINNER AT THIS TIME. NO SIGNS OF DISTRESS NOTED. SAFETY MEASURES IN PLACE. BED IN LOW POSITION AND CALL LIGHT WITHIN REACH. INSTRUCTED PT TO USE THE CALL LIGHT FOR ANY ASSISTANCE AND PT WAS AWARE.
[2019-08-27] MEDS ORDERED: VANCOMYCIN 1,000 MG in DEXTROSE 5% 250 ML IV SCH (18:00)
--- NOTE | 2019-08-27 18:06 | NUR ---
ADMINISTERED VANCOCIN VIA IVPB PER MD ORDER, MED ED PROVIDED TO PT AND PT VERBALIZED UNDERSTANDING. PT IS SITTING UP ON BED AND EATING HIS DINNER. NO SIGNS OF DISTRESS NOTED. SAFETY MEASURES IN PLACE. BED IN LOW POSITION AND CALL LIGHT WITHIN REACH. INSTRUCTED PT TO USE THE CALL LIGHT FOR ANY ASSISTANCE AND PT WAS AWARE.
--- NOTE | 2019-08-27 19:10 | NUR ---
ENDORSED PT AT BEDSIDE TO SUPERVISOR PHOTOSTAT NURSE FOR CONTINUITY OF CARE. PT AWAKE AND TALKING TO GIRL FRIEND BY BEDSIDE. NO SIGNS OF DISTRESS NOTED. PT IS IN STABLE CONDITION. SAFETY MEASURES IN PLACE.
--- NOTE | 2019-08-27 19:11 | NUR ---
RECD. RESTING IN BED, AWAKE, A/OX4, LEGALLY BLIND. RESPIRATION EVEN AND UNLABORED. IV SALINE LOCK AT THE LEFT FOREARM G22. PATENT AND INTACT. REDNESS IN THE ABDOMEN AROUND PERITONEAL DIALYSIS LINE DISAPPEARING, SLIGHT PINKISH COLOR, DECREASING IN SIZE. SAFETY MEASURES ENFORCED. BED IN THE LOWEST POSITION, SIDE RAILS UP AND CALL LIGHT IN REACH. BED ON ALARM. PLAN OF CARE DISCUSSED WITH PATIENT. VERBALIZED UNDERSTANDING. DENIES PAIN 0/10.
--- NOTE | 2019-08-27 19:30 | NUR ---
Patient's Plan of Care was discussed and reviewed with INSTRUMENT AND CONTROL TECHNICIAN: PIERRE
--- NOTE | 2019-08-27 20:59 | NUR ---
SNACK AND DUE PO MEDS FOR THE NIGHT GIVEN. ATE 100%.
[2019-08-27] MEDS: ATORVASTATIN 20 MG TAB PO SCH (21:34)
[2019-08-28] VITALS: BP 139/72
--- NOTE | 2019-08-28 | NUR ---
SLEEPING COMFORTABLY IN BED.
--- NOTE | 2019-08-28 04:00 | NUR ---
ASSISTED TO GO TO BR TO HAVE BM. GAIT STEADY.
[2019-08-28] MEDS: PANTOPRAZOLE 40 MG TABEC PO SCH (05:55)
[2019-08-28] MEDS: BLOOD GLUCOSE MONITORING 1 DEV DEV FS SCH ×5 (06:18→21:00)
[2019-08-28] MEDS: INSULIN LISPRO SLIDING SCALE 100 UNITS/ML VIAL SUBQ PRN ×3 (06:53→17:44)
--- NOTE | 2019-08-28 07:24 | NUR ---
CONDITION REMAIN STABLE. ENDORSED TO AM SHIFT NURSE FOR CONTINUITY OF CARE.
--- NOTE | 2019-08-28 07:25 | NUR ---
RECEIVED BEDSIDE REPORT FROM NIGHT NURSE. PATIENT IN STABLE CONDITION. PT IN BED, ALERT AND AWAKE. IV INTACT AND PATENT TO LFA WITH SALINE LOCK. CALL LIGHT WITHIN REACH.
[2019-08-28 08:00] VITALS: BP 118/73
[2019-08-28] MEDS: FOLIC ACID 1 MG TAB PO SCH (09:59)
[2019-08-28] MEDS: DOCUSATE SODIUM 100 MG GELCAP PO SCH ×2 (09:59→21:57)
[2019-08-28] MEDS: hydrALAZINE 25 MG TAB PO SCH ×2 (10:00→22:02)
[2019-08-28] MEDS: CARVEDILOL 12.5 MG TAB PO SCH ×2 (10:00→21:57)
--- NOTE | 2019-08-28 10:00 | NUR ---
PT ALERT AND ORIENTED X4. ABLE TO MAKE NEEDS KNOWN. PT RECEIVED AM MEDICATIONS. PT REFUSED COREG 50MG TOTAL, PT STATED "HE ONLY TAKES 25MG TWICE A DAY TOTAL 50MG A DAY." NO S/S OF DISTRESS NOTED. CALL LIGHT WITHIN REACH.
[2019-08-28] MEDS: VIT-B COMP/VIT-C/FOLIC ACID 1 TAB PO SCH (10:02)
--- NOTE | 2019-08-28 10:39 | NUR ---
Pricing Consultant Note: Basic Screen: Yes High Risk DC Screen Yes Name: DAISY Becerril Relationship: MOTHER Pre-Admission Living Arrangements: Lives with Other Prior ADL Independent Current Home Health Name/Tel: N/A Current DME/02 Name/Tel: [facility]E, WHEELCHAIR, [facility]E Current Hospice Name/Tel: N/A Current Dialysis Name/Tel: N/A Healthcare Decision Maker: Patient Advance Directive No Physician Orders for Life Sustaining Treatment Form No Patient/Family Have Educational Needs No Information Taught: Advance Directive Person Taught: Patient Teaching Tools: Verbal Factors Affecting Learning: None Participation Level: Active Evaluation: Verbalizes Understanding Needs Additional Education: No Discipline: Case Mgt/Social Svcs Tentative Discharge Plan/Destination: No Needs Identified Will require assistance post discharge: No Referred to Wire Drawing Die Maker: No Tentative Discharge Plan Summary: Patient si a 39-year-old male admitted for cellulitis on PD catheter site. Patient has PMHX of DM, HTN, CHF, ESRD, and complete blindness. Patient was admitted from home. SW met patient at bedside to verify demographics. Patient stated that he is able to complete all ADLs independently but cutting his mustache and matching his clothes. Patient stated he receives help from his family doing those tasks, but is independent with all other ADLs. Patient reports no history of mental health and no current substance abuse. SW provided education on advanced directive, but patient refused. Patient's tentative discharge plan is to return home. No further needs identified. Signature: BRETT Gaxiola Date: Aug 28, 2019 Time: 10:38
[2019-08-28 12:15] LABS: BASOPHILS # (AUTO) 0.1 K/uL (0.00-0.22); BASOPHILS % (AUTO) 0.8 % (0.0-2.0); EOSINOPHILS # (AUTO) 0.2 K/uL (0-0.4); EOSINOPHILS % (AUTO) 3.5 % (0.0-4.0); HEMATOCRIT 36.6 % (36-52); LYMPHOCYTES # (AUTO) 1.7 K/uL (2.0-11.5); LYMPHOCYTES % (AUTO) 25.1 % (20.5-51.1); MEAN CORPUSCULAR HEMOGLOBIN 32 pg (27-31); MEAN CORPUSCULAR HGB CONC 33 g/dL (33-37); MEAN CORPUSCULAR VOLUME 97.1 fL (80-94); MONOCYTES # (AUTO) 0.8 K/uL (0.8-1.0); MONOCYTES % (AUTO) 11.4 % (1.7-9.3); NEUTROPHILS # (AUTO) 3.9 K/uL (1.8-7.7); NEUTROPHILS % (AUTO) 59.2 % (42.2-75.2); PLATELET COUNT (AUTO) 181 K/uL (140-450); RED BLOOD CELL COUNT(AUTO) 3.77 MIL/uL (4.20-6.10); WHITE BLOOD COUNT (AUTO) 6.7 K/uL (4.8-10.8)
--- NOTE | 2019-08-28 12:30 | NUR ---
PT IS EATING LUNCH. PT ALERT AND VERBALLY RESPONSIVE. NO S/S OF DISTRESS NOTED. PT AMBULATES TO THE RESTROOM WITH 1 PERSON ASSIST. NEEDS MET AT THIS TIME.
[2019-08-28 12:37] LABS: ANION GAP 17.5 (8-16); CARBON DIOXIDE 26.8 mmol/L (21-32); POTASSIUM 5.3 mmol/L (3.5-5.1)
[2019-08-28 12:40] LABS: CREATININE 9.2 mg/dL (0.7-1.3); MAGNESIUM 2.3 mg/dL (1.8-2.4); PHOSPHORUS 8.2 mg/dL (2.5-4.9)
[2019-08-28] MEDS ORDERED: CARV25TA PO (12:46)
[2019-08-28] MEDS ORDERED: INSULIN REGULAR, HUMAN 100 UNIT/ML VIAL SUBQ SCH (13:09)
--- NOTE | 2019-08-28 14:42 | NUR ---
IV ANTIBIOTIC INFUSING ORDERED. PT IS ALERT AND VERBALLY RESPONSIVE. PT ON THE PHONE. NO S/S OF DISTRESS NOTED. BED IN LOW POSITION. CALL LIGHT WITHIN REACH.
[2019-08-28 16:00] VITALS: BP 161/93
--- NOTE | 2019-08-28 16:30 | NUR ---
PT AMBULATES TO THE RESTROOM WITH STANDBY ASSIST. PT ALERT AND ORIENTED X4. NO S/S OF DISTRESS NOTED. BS CHECKED ORDERED.
[2019-08-28] MEDS: INSULIN REGULAR, HUMAN 100 UNIT/ML VIAL SUBQ SCH (17:46)
--- NOTE | 2019-08-28 17:52 | NUR ---
PT REFUSED HUMALOG 2 UNITS. PT HAS HUMULIN R COVERAGE ORDERED.
--- NOTE | 2019-08-28 18:30 | NUR ---
PT IN STABLE CONDITION. WILL ENDORSE TO NIGHT NURSE FOR CONTINUITY OF CARE.
[2019-08-28] MEDS: cloNIDine 0.1 MG TAB PO PRN ×3 (18:33→23:54)
--- NOTE | 2019-08-28 19:05 | NUR ---
RECEIVED PATIENT LAYING IN BED. AWAKE AND ALERT. PATIENT IS BLIND. ON ROOM AIR. NO DISTRESS NOTED. IV ACCESS ON LEFT FOREARM 22 GAUGE. ON SALINE LOCK. PATENT AND INTACT. BED IN LOW. SAFETY MEASURES IN PLACE. INITIAL ASSESSMENT DONE. CALL LIGHT WITHIN PATIENT REACH. WILL CONTINUE TO MONITOR PATIENT.
--- NOTE | 2019-08-28 20:00 | NUR ---
PATIENT NOTED WITH LOW GLUCOSE OF 72. PATIENT GIVEN CRACKERS AND ORANGE JUICE. WILL CONTINUE TO MONITOR PATIENT.
[2019-08-28] MEDS ORDERED: OMEGA ACID ETHYL ESTERS PO SCH (21:00)
[2019-08-28] MEDS ORDERED: PATIENTS OWN INJECTABLE SUBQ SCH (21:00)
--- NOTE | 2019-08-28 21:30 | NUR ---
BLOOD GLUCOSE OF 80. NO INSULIN COVERAGE GIVEN.
[2019-08-28] MEDS: ATORVASTATIN 20 MG TAB PO SCH (21:56)
[2019-08-28] MEDS: HYDROcodone/APAP 7.5/325 MG 1 TAB PO PRN (22:12)
[2019-08-29 00:05] VITALS: BP 146/85
--- NOTE | 2019-08-29 00:05 | NUR ---
VITALS TAKEN AT THIS TIME. CALL LIGHT WITHIN PATIENT REACH. WILL CONTINUE TO MONITOR PATIENT.
--- NOTE | 2019-08-29 04:15 | NUR ---
PT STARTED DIALYSIS AT THIS TIME. WILL CONTINUE TO MONITOR PATIENT.
[2019-08-29] MEDS: PANTOPRAZOLE 40 MG TABEC PO SCH (05:58)
--- NOTE | 2019-08-29 06:30 | NUR ---
DIALYSIS ENDED AT THIS TIME. 1.5 LITERS REMOVED. PT IN STABLE CONDITION.
[2019-08-29 06:40] LABS: ANION GAP 20.4 (8-16); CARBON DIOXIDE 25.2 mmol/L (21-32); POTASSIUM 5.6 mmol/L (3.5-5.1)
[2019-08-29 06:41] LABS: MAGNESIUM 2.6 mg/dL (1.8-2.4)
[2019-08-29] MEDS: BLOOD GLUCOSE MONITORING 1 DEV DEV FS SCH ×4 (06:49→21:05)
[2019-08-29] MEDS: INSULIN REGULAR, HUMAN 100 UNIT/ML VIAL SUBQ SCH (06:50)
--- NOTE | 2019-08-29 06:51 | NUR ---
BLOOD GLUCOSE RESULT OF 250. INSULIN HELD FOR SURGICAL PROCEDURE TO BE DONE AT 0730
--- NOTE | 2019-08-29 06:52 | NUR ---
PT IN STABLE CONDITION. CALL LIGHT WITHIN PATIENT REACH. WILL ENDORSE TO AM SHIFT NURSE FOR CONTINUITY OF CARE.
[2019-08-29 06:55] LABS: BASOPHILS % (AUTO) 0.5 % (0.0-2.0); EOSINOPHILS # (AUTO) 0.3 K/uL (0-0.4); HEMATOCRIT 33.9 % (36-52); LYMPHOCYTES # (AUTO) 1.9 K/uL (2.0-11.5); LYMPHOCYTES % (AUTO) 27.9 % (20.5-51.1); MEAN CORPUSCULAR HEMOGLOBIN 32 pg (27-31); MEAN CORPUSCULAR HGB CONC 32 g/dL (33-37); MEAN CORPUSCULAR VOLUME 97.6 fL (80-94); MONOCYTES # (AUTO) 0.8 K/uL (0.8-1.0); MONOCYTES % (AUTO) 11.9 % (1.7-9.3); NEUTROPHILS # (AUTO) 3.8 K/uL (1.8-7.7); NEUTROPHILS % (AUTO) 54.7 % (42.2-75.2); PLATELET COUNT (AUTO) 174 K/uL (140-450); RED BLOOD CELL COUNT(AUTO) 3.47 MIL/uL (4.20-6.10)
[2019-08-29 07:23] LABS: CREATININE 11.1 mg/dL (0.7-1.3)
--- NOTE | 2019-08-29 07:30 | NUR ---
RECEIVED BEDSIDE REPORT FROM DEALER COMPLIANCE REPRESENTATIVE NURSE. PER DEALER COMPLIANCE REPRESENTATIVE NURSE, PT IS GOING TO SURGERY IN A FEW MINUTES TO REMOVE THE PERITONEAL DIALYSIS CATHETER FROM HIS ABD. PT IS ASLEEP AT THIS TIME, NO S/S OF DISTRESS, ON ROOM AIR. IV SITE L FA 22 G, SALINE LOCKED. CONSENT FOR SURGERY AND PREOP CHECKLIST HAVE ALREADY BEEN COMPLETED.
[2019-08-29] MEDS ORDERED: fentaNYL 0.05 MG/ML VIAL ONE (07:35)
--- NOTE | 2019-08-29 07:40 | NUR ---
PER OR NURSE, PT MAY POSSIBLY HAVE ANAL FISSURE REPAIR DURING HIS SURGERY.
--- NOTE | 2019-08-29 07:45 | NUR ---
PT TAKEN OFF UNIT FOR SURGICAL PROCEDURE
[2019-08-29 08:00] VITALS: BP 147/84
[2019-08-29] MEDS ORDERED: BUPIVACAINE-MPF/EPI 0.25% 30 ML VIAL INJ ONE (08:02)
[2019-08-29] MEDS ORDERED: ONDANSETRON 4 MG/2 ML VIAL ONE (08:10)
[2019-08-29] MEDS ORDERED: DESFLURANE 240 ML BTL INH ONE (08:10)
[2019-08-29] MEDS ORDERED: PROPOFOL 200 MG/20 ML VIAL IV ONE (08:10)
--- NOTE | 2019-08-29 08:35 | NUR ---
DR RIOJAS NOTIFIED OF PT'S PHOSPHORUS 12, SHE WILL RELAY MESSAGE TO DR GOETZ.
[2019-08-29] MEDS ORDERED: CRANBERRY FRUIT EXTRACT 300 MG PO SCH (09:00)
[2019-08-29] MEDS: hydrALAZINE 25 MG TAB PO SCH ×2 (09:00→21:08)
--- NOTE | 2019-08-29 10:09 | NUR ---
PT IS BACK FROM SURGERY
--- NOTE | 2019-08-29 10:15 | NUR ---
POST-OP VS: BP 147/84, O2 96% RA, TEMP 97.5, HR 72, RR 16.
[2019-08-29] MEDS: VIT-B COMP/VIT-C/FOLIC ACID 1 TAB PO SCH (11:34)
[2019-08-29] MEDS: CARVEDILOL 12.5 MG TAB PO SCH ×2 (11:34→21:08)
[2019-08-29] MEDS: DOCUSATE SODIUM 100 MG GELCAP PO SCH ×2 (11:34→21:08)
[2019-08-29] MEDS: FOLIC ACID 1 MG TAB PO SCH (11:34)
--- NOTE | 2019-08-29 13:30 | NUR ---
PT IS AWAKE AND ALERT, TALKING ON THE PHONE, NO S/S OF DISTRESS, C/O MODERATE PAIN BUT STATES THAT HE DOES NOT WANT PAIN MEDICINE AT THIS TIME, AND WILL LET ME KNOW WHEN HE NEEDS IT. LUNCH WAS PROVIDED FOR PT.
[2019-08-29] MEDS: HYDROcodone/APAP 7.5/325 MG 1 TAB PO PRN ×2 (14:19→22:09)
--- NOTE | 2019-08-29 14:28 | NUR ---
TALKED TO THE PT ABOUT HIS OMEGA 3 SUPPLEMENTS THAT HE TAKES AT HOME, ACCORDING TO MIRIAM, PHARMACIST, WE DO NOT CARRY THIS MEDICATION AT THIS HOSPITAL. I ASKED THE PT IF SOMEONE CAN BRING HIS SUPPLEMENTS FROM HOME. HE SAID HE WILL CALL AND ASK HIS OR BROTHER.
[2019-08-29 16:00] VITALS: BP 151/81
[2019-08-29] MEDS: INSULIN LISPRO 100 UNITS/ML VIAL SUBQ SCH (16:30)
[2019-08-29] MEDS: CALCIUM ACETATE 667 MG TAB PO SCH (17:00)
[2019-08-29] MEDS: INSULIN LISPRO SLIDING SCALE 100 UNITS/ML VIAL SUBQ PRN (18:12)
--- NOTE | 2019-08-29 19:15 | NUR ---
ENDORSED PT TO FUNERAL HOME MAKEUP ARTIST NURSE IN STABLE CONDITION
--- NOTE | 2019-08-29 19:30 | NUR ---
ASSUMED CARE OF PATIENT, AWAKE, ALERT AND ORIENTED. FAMILY AT BEDSIDE. NO COMPLAINS. CALL LIGHT WITHIN REACH.
[2019-08-29 20:25] LABS: ANION GAP 15.4 (8-16); POTASSIUM 5.4 mmol/L (3.5-5.1)
[2019-08-29 20:27] LABS: CREATININE 9.5 mg/dL (0.7-1.3)
--- NOTE | 2019-08-29 20:30 | NUR ---
DRESSING DRY AND INTACT. CARE BOARD UPDATED. HS SNACK AT BEDSIDE. CALL LIGHT WITHIN REACH. PLAN OF CARE DISCUSSED WITH PATIENT AND FAMILY MEMBER AT BEDSIDE.
[2019-08-29] MEDS ORDERED: PATIENTS OWN INJECTABLE SUBQ SCH (21:00)
[2019-08-29] MEDS: ATORVASTATIN 20 MG TAB PO SCH (21:08)
[2019-08-29] MEDS: INSULIN LANTUS 100 UNITS/ML 10 ML VIAL SUBQ SCH (21:17)
--- NOTE | 2019-08-29 22:00 | NUR ---
[facility]. CALL LIGHT WITHIN REACH.
[2019-08-30 00:41] VITALS: BP 141/80
--- NOTE | 2019-08-30 00:46 | NUR ---
VITAL SIGNS STABLE. AFEBRILE. NO COMPLAINS. DRESSING DRY AND INTACT. CALL LIGHT WITHIN REACH.
--- NOTE | 2019-08-30 03:00 | NUR ---
SLEEPING WELL. NO COMPLAINS. CALL LIGHT WITHIN REACH.
[2019-08-30] MEDS: BLOOD GLUCOSE MONITORING 1 DEV DEV FS SCH ×4 (06:03→21:00)
[2019-08-30] MEDS: INSULIN LISPRO 100 UNITS/ML VIAL SUBQ SCH ×3 (06:13→17:50)
[2019-08-30] MEDS: PANTOPRAZOLE 40 MG TABEC PO SCH (06:17)
[2019-08-30 07:25] LABS: BASOPHILS % (AUTO) 0.7 % (0.0-2.0); EOSINOPHILS # (AUTO) 0.2 K/uL (0-0.4); EOSINOPHILS % (AUTO) 3.3 % (0.0-4.0); HEMATOCRIT 36.1 % (36-52); HEMOGLOBIN 11.8 g/dL (12.0-18.0); LYMPHOCYTES # (AUTO) 1.7 K/uL (2.0-11.5); LYMPHOCYTES % (AUTO) 25.3 % (20.5-51.1); MEAN CORPUSCULAR HEMOGLOBIN 32 pg (27-31); MEAN CORPUSCULAR HGB CONC 33 g/dL (33-37); MEAN CORPUSCULAR VOLUME 96.9 fL (80-94); MONOCYTES # (AUTO) 0.8 K/uL (0.8-1.0); MONOCYTES % (AUTO) 12.8 % (1.7-9.3); NEUTROPHILS # (AUTO) 3.8 K/uL (1.8-7.7); NEUTROPHILS % (AUTO) 57.9 % (42.2-75.2); PLATELET COUNT (AUTO) 184 K/uL (140-450); RED BLOOD CELL COUNT(AUTO) 3.72 MIL/uL (4.20-6.10); RED CELL DISTRIBUTION WIDTH 14.9 % (11.6-13.7); WHITE BLOOD COUNT (AUTO) 6.6 K/uL (4.8-10.8)
--- NOTE | 2019-08-30 07:28 | NUR ---
ENDORSED CARE AT BEDSIDE WITH JUAN RN, PATIENT IN STABLE CONDITION.
--- NOTE | 2019-08-30 07:29 | NUR ---
GIVEN BEDSIDE REPORT BY ELA TEACHER NURSE. PT WAS RESTING IN BED. PT IS AAOX4. SKIN IS WARM AND DRY TO TOUCH AND DRESSING IS CLEAN AND INTACT. PT IV IS CLEAN AND INTACT. BREATHING IS EVEN AND UNLABORED ON RA. NO SIGNS OF DISTRESS AT THIS TIME, NO COMPLAINTS OF PAIN AT THE MOMENT. SAFETY MEASURES REVIEWED, BED IS IN LOW POSITION AND CALL LIGHT WITHIN REACH. EDUCATED PT TO USE THE CALL LIGHT FOR ANY ASSISTANCE AND PT VERBALIZED UNDERSTANDING.
[2019-08-30 07:40] LABS: ANION GAP 18.8 (8-16)
[2019-08-30 07:45] LABS: MAGNESIUM 2.5 mg/dL (1.8-2.4); PHOSPHORUS 8.4 mg/dL (2.5-4.9)
[2019-08-30 07:48] LABS: CREATININE 10.4 mg/dL (0.7-1.3)
[2019-08-30 07:49] LABS: POTASSIUM 5.8 mmol/L (3.5-5.1)
[2019-08-30 08:00] VITALS: BP 129/74
[2019-08-30] MEDS ORDERED: SODIUM ZIRCONIUM CYCLOSILICATE 10 GM POWD.PACK PO SCH (08:49)
[2019-08-30] MEDS: hydrALAZINE 25 MG TAB PO SCH ×2 (09:00→22:14)
--- NOTE | 2019-08-30 09:03 | NUR ---
DC PLANNING 39 YRS OLD MALE PATIENT ADMITTED FROM HOME WITH A DX OF CELLULITIS AT PERITONEAL CATH SITE .PT HAS A HX OF ESRD ON HD & PD ,DM, CHF, COMPLETE BLINDNESS AND HTN. LACTIC ACID 2.2 IVF BOLUS 500 ML GIVEN LA 1.8 BLOOD AND URINE CULTURE PENDING , SEEN BY SPECIAL AGENT IN CHARGE HEMODIALYSIS DONE, CONTINUE WITH CURRENT IV ABX , S/P I&D OF ABDOMINAL WALL ABSCESS AND REMOVAL OF PERITONEAL CATHETER .DC PLAN PER SPECIAL AGENT IN CHARGE .CM TO FOLLOW Addendum: 08/30/19 at 1129 by Meliza Maria CM DC PLANNING RECEIVED A CALL FROM [facility] [phone] STATED PT WAS WITH THEM PRIOR TO ADMISSION AND WOULD LIKE TO CONTINUE. WILL CONTACT PATIENT WEATHER HE WANTED TO CONTINUE OR CHANGE THE HOME HEALTH. CM TO FOLLOW. Addendum: 09/01/19 at 1333 by Meliza Maria CM DC PLANNING: PT HAS A DC ORDER AFTER DIALYSIS, SPOKE WITH THE PATIENT THAT IF HE WANTED TO CONTINUE WITH [facility] ,OR ANY ISSUES. PER PATIENT VERY SATISFIED WITH THE CARE AND WOULD LIKE TO CONTINUE WITH THEM. CALL [facility] [phone] SPOKE WITH NAOMI NOTIFIED HER PT HAS A DISCHARGE ORDER AND TO CONTINUE WITH HOME HEALTH. FAXED ALL THE PAPER WORK [phone]. CM TO FOLLOW
[2019-08-30] MEDS: FOLIC ACID 1 MG TAB PO SCH (09:28)
[2019-08-30] MEDS: VIT-B COMP/VIT-C/FOLIC ACID 1 TAB PO SCH (09:28)
[2019-08-30] MEDS: DOCUSATE SODIUM 100 MG GELCAP PO SCH ×2 (09:29→22:14)
[2019-08-30] MEDS: CARVEDILOL 12.5 MG TAB PO SCH ×2 (09:29→22:14)
[2019-08-30] MEDS: CALCIUM ACETATE 667 MG TAB PO SCH ×3 (09:33→17:51)
--- NOTE | 2019-08-30 09:36 | NUR ---
SCHEDULED MEDS GIVEN. MEDICATION EDUCATION REVIEWED WITH PT. CONDITION UNCHANGED. WILL CONTINUE TO MONITOR
--- NOTE | 2019-08-30 11:09 | NUR ---
PT RESTING IN BED. NO SIGNS OF DISTRESS AT THIS TIME. BREATHING IS EVEN AND UNLABORED. SAFETY MEASURES ASSESSED, BED IS IN LOW POSITION AND CALL LIGHT WITHIN REACH. REMINDED PT TO USE THE CALL LIGHT FOR ANY ASSISTANCE, PT VERBALIZED OK. WILL CONTINUE TO MONITOR.
[2019-08-30] MEDS: HYDROcodone/APAP 7.5/325 MG 1 TAB PO PRN ×2 (12:45→23:18)
--- NOTE | 2019-08-30 12:45 | NUR ---
PT COMPLAINS OF ABD PAIN, 02/14. [facility]CO GIVEN PER MD PRN ORDERS. MED EDUCATION GIVEN TO PT AND THEY VERBALIZED UNDERSTANDING. PT SITTING IN BED, EATING LUNCH. BED IN LOW POSITION AND CALL LIGHT WITHIN REACH. WILL CONTINUE TO MONITOR
--- NOTE | 2019-08-30 13:15 | NUR ---
PT RESTING IN BED. DENIES PAIN AT THE MOMENT. NO SIGNS OF DISTRESS NOTED. BREATHING IS EVEN AND UNLABORED ON RA. BED IS IN LOW POSITION AND CALL LIGHT WITHIN REACH. REMINDED PT TO USE CALL LIGHT FOR ANY ASSISTANCE, HE VERBALIZED UNDERSTANDING. WILL CONTINUE TO MONITOR.
--- NOTE | 2019-08-30 15:05 | NUR ---
PT AWAKE LISTENING TO MUSIC ON HIS PHONE. DENIES PAIN. NO SIGNS OF DISTRESS. SAFETY MEASURES ASSESSED, BED IS LOW AND CALL LIGHT WITHIN REACH. WILL CONTINUE TO MONITOR.
[2019-08-30 16:00] VITALS: BP 159/72
--- NOTE | 2019-08-30 18:00 | NUR ---
HEMODIALYSIS NURSE AT BEDSIDE TO START HD. WILL CONTINUE TO MONITOR.
--- NOTE | 2019-08-30 19:19 | NUR ---
GAVE REPORT TO MECHANICAL SYSTEMS CONTROL ENGINEER NURSE. PT IS IN STABLE CONDITION.
--- NOTE | 2019-08-30 19:20 | NUR ---
RECEIVED BEDSIDE REPORT FROM AM SHIFT NURSE MARTIN. PT IS LYING IN BED AWAKE AND ALERT. NO DISTRESS NOTED. PT IS BLIND WITH WALKING STICK AT BEDSIDE. ONGOING DIALYSIS AT THIS TIME. NO DISTRESS NOTED. IV ACCESS ON LEFT FOREARM 22 GAUGE, SALINE LOCK. NOTED WITH DRESSING ON LEFT SIDE OF ABDOMEN FROM REMOVAL OF PD CATHETER. BED IN LOW. INITIAL ASSESSMENT DONE. BOARD UPDATED. WILL CONTINUE TO MONITOR PATIENT.
--- NOTE | 2019-08-30 21:40 | NUR ---
DIALYSIS DONE AT THIS TIME. PATIENT STABLE WITH 2.8L REMOVED.
--- NOTE | 2019-08-30 22:00 | NUR ---
BLOOD GLUCOSE RESULT OF 112. NO INSULIN COVERAGE NEEDED. WILL CONTINUE TO MONITOR PATIENT.
[2019-08-30] MEDS: ATORVASTATIN 20 MG TAB PO SCH (22:15)
[2019-08-30] MEDS: INSULIN LANTUS 100 UNITS/ML 10 ML VIAL SUBQ SCH (22:49)
--- NOTE | 2019-08-31 00:10 | NUR ---
VITALS TAKEN AT THIS TIME. NO DISTRESS NOTED. CALL LIGHT WITHIN PATIENT REACH. WILL CONTINUE TO MONITOR PATIENT.
[2019-08-31 00:40] VITALS: BP 126/78
--- NOTE | 2019-08-31 01:12 | NUR ---
WOUND ASSESSMENT DONE. DRESSINGS ARE DRY AND INTACT. PT IN STABLE CONDITION. WILL CONTINUE TO MONITOR PATIENT.
--- NOTE | 2019-08-31 02:42 | NUR ---
VISUAL CHECK DONE. VISIBLE CHEST RISE AND FALL NOTED. WILL CONTINUE TO MONITOR PATIENT.
--- NOTE | 2019-08-31 04:56 | NUR ---
VISUAL CHECK DONE. PATIENT SNORING. VISIBLE CHEST RISE AND FALL NOTED. WILL CONTINUE TO MONITOR PATIENT.
[2019-08-31 06:37] LABS: BASOPHILS % (AUTO) 0.7 % (0.0-2.0); EOSINOPHILS # (AUTO) 0.2 K/uL (0-0.4); EOSINOPHILS % (AUTO) 3.5 % (0.0-4.0); HEMATOCRIT 37.1 % (36-52); HEMOGLOBIN 12.1 g/dL (12.0-18.0); LYMPHOCYTES # (AUTO) 1.4 K/uL (2.0-11.5); LYMPHOCYTES % (AUTO) 23.7 % (20.5-51.1); MEAN CORPUSCULAR HEMOGLOBIN 31 pg (27-31); MEAN CORPUSCULAR HGB CONC 33 g/dL (33-37); MEAN CORPUSCULAR VOLUME 96.6 fL (80-94); MONOCYTES # (AUTO) 0.7 K/uL (0.8-1.0); NEUTROPHILS # (AUTO) 3.6 K/uL (1.8-7.7); NEUTROPHILS % (AUTO) 60.1 % (42.2-75.2); PLATELET COUNT (AUTO) 185 K/uL (140-450); RED BLOOD CELL COUNT(AUTO) 3.84 MIL/uL (4.20-6.10); RED CELL DISTRIBUTION WIDTH 14.6 % (11.6-13.7); WHITE BLOOD COUNT (AUTO) 5.9 K/uL (4.8-10.8)
[2019-08-31 06:44] LABS: ANION GAP 12.2 (8-16); CARBON DIOXIDE 31.1 mmol/L (21-32); POTASSIUM 4.3 mmol/L (3.5-5.1)
--- NOTE | 2019-08-31 06:45 | NUR ---
PATIENT HAD BLOOD GLUCOSE RESULT OF 245. WAITING FOR MD ORDERS TO CONFIRM INSULIN DOSE.
--- NOTE | 2019-08-31 06:47 | NUR ---
OMARI FROM LAB CALLED WITH CRITICAL LAB OF CREATININE 7.2 AND BUN 35. REPORTED TO MD WHO WAS AT PATIENT BEDSIDE. NO NEW ORDERS.
[2019-08-31 06:48] LABS: CREATININE 7.2 mg/dL (0.7-1.3)
[2019-08-31] MEDS: PANTOPRAZOLE 40 MG TABEC PO SCH (06:52)
--- NOTE | 2019-08-31 06:59 | NUR ---
PATIENT IN STABLE CONDITION. CALL LIGHT WITHIN PATIENT REACH. WILL ENDORSE TO AM SHIFT NURSE FOR CONTINUITY OF CARE.
[2019-08-31 07:08] LABS: MAGNESIUM 2.2 mg/dL (1.8-2.4); PHOSPHORUS 6.8 mg/dL (2.5-4.9)
--- NOTE | 2019-08-31 07:20 | NUR ---
RECEIVED REPORT FROM HOTEL FRONT DESK CLERK NURSE. PATIENT LYING DOWN IN BED SLEEPING, AROUSABLE BY VOICE. NO DISTRESS NOTED. DENIES ANY PAIN. AAOX4, CALM, COOPERATIVE, SKIN COLOR APPROPRIATE TO ETHNICITY, WARM TO TOUCH. HAS ABD WOUND, DRESSING DRY AND INTACT. HAS PERIANAL AREA S/P SURGICAL WOUND, DRESSING DRY AND INTACT. IV SITE INTACT, PATENT, AND ON SALINE LOCK. REVIEWED PLAN OF CARE WITH PATIENT. PATIENT VERBALIZED UNDERSTANDING. SAFETY MEASURES IN PLACE, CALL LIGHT WITHIN REACH. WILL CONTINUE TO MONITOR.
[2019-08-31] MEDS: BLOOD GLUCOSE MONITORING 1 DEV DEV FS SCH ×4 (07:41→20:20)
[2019-08-31 08:00] VITALS: BP 151/94
[2019-08-31] MEDS ORDERED: oxyCODONE/APAP 5/325 MG 1 TAB TAB PO PRN (08:20)
--- NOTE | 2019-08-31 08:45 | NUR ---
(08/31/19) RD INITIAL ASSESSMENT COMPLETED PLEASE REFER TO NUTRITION ASSESSMENT UNDER CARE ACTIVITY FOR ESTIMATED NUTRITIONAL NEEDS. RD RECOMMENDATIONS: 1. CONTINUE ON RENAL, CCHO 60 GM DIET TOLERATED. 2. IF PO INTAKES DOES NOT IMPROVE TO > 50%, CONSIDER ADDING ONS NEPRO 1 CARTON (8-OZ) QD WITH DINNER. THIS WILL PROVIDE ADDITIONAL 425 KCAL AND [address]IN[address] WILL F/U 3-5 DAYS; MODERATE RISK. 5. RDN PROVIDED DM AND RENAL DIET EDUCATION TO PATIENT; PT ACCEPTED DM AND RENAL DIET EDUCATION. MARCELO JENNINGS, MS, RDN
[2019-08-31] MEDS: INSULIN LISPRO 100 UNITS/ML VIAL SUBQ SCH ×3 (08:58→17:52)
[2019-08-31] MEDS: hydrALAZINE 25 MG TAB PO SCH ×2 (09:00→20:11)
[2019-08-31] MEDS: VIT-B COMP/VIT-C/FOLIC ACID 1 TAB PO SCH (09:00)
[2019-08-31] MEDS: CALCIUM ACETATE 667 MG TAB PO SCH ×3 (09:00→16:33)
[2019-08-31] MEDS: DOCUSATE SODIUM 100 MG GELCAP PO SCH ×2 (09:00→20:11)
[2019-08-31] MEDS: FOLIC ACID 1 MG TAB PO SCH (09:01)
[2019-08-31] MEDS: CARVEDILOL 12.5 MG TAB PO SCH ×2 (09:01→20:11)
--- NOTE | 2019-08-31 09:04 | NUR ---
PATIENT LYING DOWN IN BED SLEEPING, AROUSABLE BY VOICE. NO DISTRESS NOTED. DENIES ANY PAIN. SCHEDULED MEDICATIONS DUE GIVEN. WILL CONTINUE TO MONITOR.
[2019-08-31] MEDS ORDERED: COMMUNICATION ORDER MC PRN (10:10)
--- NOTE | 2019-08-31 12:28 | NUR ---
PATIENT SITTING DOWN IN BED WITH LUNCH TRAY. NO DISTRESS NOTED. DENIES ANY PAIN. SCHEDULED MEDICATIONS DUE GIVEN. WILL CONTINUE TO MONITOR.
--- NOTE | 2019-08-31 14:30 | NUR ---
PATIENT LYING DOWN IN BED TALKING WITH FAMILY MEMBERS AT BEDSIDE. CONDITION UNCHANGED. WILL CONTINUE TO MONITOR.
[2019-08-31] MEDS ORDERED: VANCOMYCIN 500 MG in DEXTROSE 5% 100 ML IV SCH (15:00)
[2019-08-31 16:00] VITALS: BP 180/96
[2019-08-31] MEDS: cloNIDine 0.1 MG TAB PO PRN (16:34)
--- NOTE | 2019-08-31 16:36 | NUR ---
PATIENT LYING DOWN IN BED TALKING WITH FRIEND AT BEDSIDE. NO DISTRESS NOTED. DENIES ANY PAIN. SCHEDULED MEDICATIONS DUE GIVEN. WILL CONTINUE TO MONITOR.
--- NOTE | 2019-08-31 18:10 | NUR ---
PATIENT SITTING IN BED ON HIS PHONE. CONDITION UNCHANGED. WILL CONTINUE TO MONITOR.
--- NOTE | 2019-08-31 19:09 | NUR ---
GAVE REPORT TO ELECTRONIC TECH NURSE FOR CONTINUITY OF CARE. PATIENT IN STABLE CONDITION.
--- NOTE | 2019-08-31 19:10 | NUR ---
RECEIVED BEDSIDE REPORT FROM AM SHIFT NURSE MARTIN. PATIENT IS SIDE LYING IN BED AWAKE AND ALERT. IV ACCESS ON LEFT FOREARM 22 GAUGE SALINE LOCK. NO DISTRESS OR SOB NOTED, ON ROOM AIR. PATIENT IS BLIND. WALKING STICK AT BEDSIDE. BED IN LOW, SAFETY MEASURES IN PLACE. INITIAL ASSESSMENT DONE. DRESSING NOTED ON LEFT SIDE OF ABDOMEN FOR REMOVAL OF PD CATHETER, DRY AND INTACT. CALL LIGHT WITHIN PATIENT REACH. WILL CONTINUE TO MONITOR PATIENT.
[2019-08-31] MEDS: ATORVASTATIN 20 MG TAB PO SCH (20:10)
--- NOTE | 2019-08-31 20:21 | NUR ---
PATIENT NOTED WITH A BLOOD GLUCOSE RESULT OF 88. INSULIN COVERAGE HELD PER PARAMETERS. PATIENT GIVEN EYAL CRACKERS AND ORANGE JUICE. WILL CONTINUE TO MONITOR PATIENT.
--- NOTE | 2019-08-31 20:23 | NUR ---
PT REFUSED HEPARIN SODIUM AT THIS TIME. WILL CONTINUE TO MONITOR PATIENT.
[2019-08-31] MEDS ORDERED: TOUJEO SUBQ SCH (21:00)
[2019-08-31] MEDS: HYDROcodone/APAP 7.5/325 MG 1 TAB PO PRN (21:24)
--- NOTE | 2019-08-31 22:30 | NUR ---
VISUAL CHECK DONE. VISIBLE CHEST RISE AND FALL NOTED. CALL LIGHT WITHIN PATIENT REACH. WILL CONTINUE TO MONITOR PATIENT.
--- NOTE | 2019-09-01 00:10 | NUR ---
VITAL SIGNS TAKEN AT THIS TIME. NO DISTRESS NOTED. WILL CONTINUE TO MONITOR PATIENT.
[2019-09-01 00:11] VITALS: BP 136/65
--- NOTE | 2019-09-01 03:29 | NUR ---
VISUAL CHECK DONE. VISIBLE CHEST RISE AND FALL NOTED. CALL LIGHT WITHIN PATIENT REACH. WILL CONTINUE TO MONITOR PATIENT.
[2019-09-01] MEDS: PANTOPRAZOLE 40 MG TABEC PO SCH (05:52)
--- NOTE | 2019-09-01 06:32 | NUR ---
BLOOD GLUCOSE RESULT OF 148 WITH NO INSULIN COVERAGE NEEDED. WILL CONTINUE TO MONITOR PATIENT.
--- NOTE | 2019-09-01 06:33 | NUR ---
PATIENT IN STABLE CONDITION. CALL LIGHT WITHIN PATIENT REACH. WILL ENDORSE TO AM SHIFT NURSE FOR CONTINUITY OF CARE.
--- NOTE | 2019-09-01 06:45 | NUR ---
ROUTINE 20 UNITS OF REGULAR INSULIN GIVEN WITH LOCO FROM EVEN WITH BLOOD GLUCOSE OF 148.
[2019-09-01 06:46] LABS: BASOPHILS # (AUTO) 0.1 K/uL (0.00-0.22); BASOPHILS % (AUTO) 0.9 % (0.0-2.0); EOSINOPHILS # (AUTO) 0.4 K/uL (0-0.4); EOSINOPHILS % (AUTO) 5.7 % (0.0-4.0); HEMATOCRIT 33.6 % (36-52); LYMPHOCYTES # (AUTO) 2.2 K/uL (2.0-11.5); LYMPHOCYTES % (AUTO) 33.4 % (20.5-51.1); MEAN CORPUSCULAR HEMOGLOBIN 32 pg (27-31); MEAN CORPUSCULAR HGB CONC 33 g/dL (33-37); MEAN CORPUSCULAR VOLUME 97.3 fL (80-94); MONOCYTES # (AUTO) 0.8 K/uL (0.8-1.0); NEUTROPHILS # (AUTO) 3.2 K/uL (1.8-7.7); PLATELET COUNT (AUTO) 184 K/uL (140-450); RED BLOOD CELL COUNT(AUTO) 3.45 MIL/uL (4.20-6.10); RED CELL DISTRIBUTION WIDTH 14.8 % (11.6-13.7); WHITE BLOOD COUNT (AUTO) 6.7 K/uL (4.8-10.8)
[2019-09-01] MEDS: BLOOD GLUCOSE MONITORING 1 DEV DEV FS SCH ×2 (06:49→11:30)
[2019-09-01] MEDS: INSULIN LISPRO 100 UNITS/ML VIAL SUBQ SCH ×2 (06:54→12:37)
[2019-09-01 07:13] LABS: ANION GAP 19.2 (8-16); CARBON DIOXIDE 28.3 mmol/L (21-32); POTASSIUM 5.5 mmol/L (3.5-5.1)
[2019-09-01 07:22] LABS: MAGNESIUM 2.6 mg/dL (1.8-2.4)
--- NOTE | 2019-09-01 07:30 | NUR ---
RECEIVED PT FROM CHARGE NURSE. REPORT GIVEN AT BEDSIDE. PT RESTING IN BED UPON ARRIVAL. ABLE TO MAKE NEEDS KNOWN. NO COMPLAINTS OR CONCERNS AT THIS TIME. RESPIRATIONS EVEN AND UNLABORED WITH NO SOB OR RESPIRATORY DISTRESS. IV SITE IN LEFT FA 22G. CLEAN DRY AND INTACT. SKIN WARM AND DRY TO TOUCH. NO COMPLICATIONS AT THIS TIME. SAFETY MEASURES IN PLACE. WILL CONTINUE TO MONITOR.
[2019-09-01 07:31] LABS: CREATININE 9.9 mg/dL (0.7-1.3); PHOSPHORUS 9.6 mg/dL (2.5-4.9)
[2019-09-01 08:00] VITALS: BP 149/84
[2019-09-01] MEDS: CALCIUM ACETATE 667 MG TAB PO SCH ×2 (10:22→12:28)
[2019-09-01] MEDS: DOCUSATE SODIUM 100 MG GELCAP PO SCH (10:23)
[2019-09-01] MEDS: FOLIC ACID 1 MG TAB PO SCH (10:23)
[2019-09-01] MEDS: hydrALAZINE 25 MG TAB PO SCH (10:23)
[2019-09-01] MEDS: VIT-B COMP/VIT-C/FOLIC ACID 1 TAB PO SCH (10:23)
--- NOTE | 2019-09-01 10:23 | NUR ---
ADMINISTERED MEDICATION PRESCRIBED PER MD ORDER. PT TOLERATED WELL. MEDICATION EDUCATION PERFORMED. PT VREBALIZED UNDERSTANDING AND COULD TEACH BACK. NO COMPLICATIONS AT THIS TIME. WILL CONTINUE TO MONITOR
[2019-09-01] MEDS: CARVEDILOL 12.5 MG TAB PO SCH (10:25)
[2019-09-01] MEDS ORDERED: HYDR-5122 PO (11:09)
[2019-09-01] MEDS ORDERED: CLIN300C2 PO (11:22)
[2019-09-01] MEDS ORDERED: LACT-81 PO (11:22)
[2019-09-01] MEDS ORDERED: CEPH250C16 PO (11:43)
--- NOTE | 2019-09-01 13:05 | NUR ---
HOURLY ROUNDING. PT IS RESTING IN BED. ABLE TO MAKE NEEDS KNOWN. NO CONCERNS OR COMPLICATIONS AT THIS TIME. RESPIRATIONS EVEN AND UNLABORED WITH NO SOB OR RESPIRATORY DISTRESS. SAFETY MEASURES IN PLACE. WILL CONTINUE TO MONITOR.
--- NOTE | 2019-09-01 14:15 | NUR ---
DIALYSIS NURSE ARRIVED AND IS AT BEDSIDE WITH PATIENT. NO COMPLICATIONS AT THIS TIME. WILL CONTINUE TO MONITOR
[2019-09-01 16:00] VITALS: BP 134/78
--- NOTE | 2019-09-01 16:02 | NUR ---
DIALYSIS NURSE IS COMPLETE AND GOT 3 LITERS OFF. PT IS RESTING IN BED. NO COMPLICATIONS OR CONCERNS AT THIS TIME. RESPIRATIONS EVEN AND UNLABORED WITH NO SOB. SAFETY MEASURES IN PLACE. WILL CONTINUE TO MONITOR.
[2019-09-01] MEDS ORDERED: LIDOCAINE 4% 40 MG/ML BTL TP ONE (17:55)
--- NOTE | 2019-09-01 18:00 | NUR ---
PT RESTING IN BED WITH FAMILY AT BEDSIDE. RESPIRATIONS EVEN AND UNLABORED WITH NO SOB OR RESPIRATORY DISTRESS. SKIN WARM AND DRY TO TOUCH. ABLE TO MAKE NEEDS KNOWN. WENT OVER DISCHARGE INSTRUCTIONS WITH PATIENT AND HAD HIM SIGN DOCUMENTS. ID BAND, ALLERGY BAND, AND INTACT IV CANNULA REMOVED. NO COMPLICATIONS AT THIS TIME. PT ALREADY HAD THE FLU AND PNA VACCINE. INSTRUCTED PATIENT TO VISIT ED FOR ANY SIGNS OF DISTRESS. PT GATHERED ALL OF HIS BELONGS. WHEELED OUT WITH FAMILY. NO COMPLICATIONS OR CONCERNS. PT IS STABLE.
[2019-09-01] MEDS ORDERED: LIDOCAINE JELLY 2% 30 ML TUBE TP SCH (18:05)
[2019-09-01 19:12] LABS: ANION GAP 16.5 (8-16); CARBON DIOXIDE 30.2 mmol/L (21-32); POTASSIUM 4.7 mmol/L (3.5-5.1)
--- NOTE | 2019-09-01 19:55 | NUR ---
PATIENT PICKED UP BY FAMILY, ACCOMPANIED TO EXIT VIA WHEELCHAIR.
[2019-09-02] MEDS ORDERED: HYDR-5092 PO (07:05)
== END 2019-09-01 19:55 | disposition home or self-care (01) | DRG 907 ==
LOC: MED 12:39 → MTU 17:12
PROVIDERS: ADMIT General Practice; ATTEND General Practice
PROC: 5A1D70Z Performance of Urinary Filtration, Intermittent, Less than 6 Hours Per Day (ICD-10-PCS; 2019-08-27)
PROC: 0W9F0ZZ Drainage of Abdominal Wall, Open Approach (ICD-10-PCS; 2019-08-29)
PROC: 0WPGX3Z Removal of Infusion Device from Peritoneal Cavity, External Approach (ICD-10-PCS; 2019-08-29)
PROC: 5A1D70Z Performance of Urinary Filtration, Intermittent, Less than 6 Hours Per Day (ICD-10-PCS; 2019-08-29)
PROC: 0DBQ0ZZ Excision of Anus, Open Approach (ICD-10-PCS; principal; 2019-08-29 07:30)
PROC: 5A1D70Z Performance of Urinary Filtration, Intermittent, Less than 6 Hours Per Day (ICD-10-PCS; 2019-08-30)
PROC: 5A1D70Z Performance of Urinary Filtration, Intermittent, Less than 6 Hours Per Day (ICD-10-PCS; 2019-09-01)
DX: T85.71XA Infection and inflammatory reaction due to peritoneal dialysis catheter, initial encounter (principal); N17.0 Acute kidney failure with tubular necrosis; N18.6 End stage renal disease; L03.311 Cellulitis of abdominal wall; I13.2 Hypertensive heart and chronic kidney disease with heart failure and with stage 5 chronic kidney disease, or end stage renal disease; D68.59 Other primary thrombophilia; L02.211 Cutaneous abscess of abdominal wall; E87.5 Hyperkalemia; E83.39 Other disorders of phosphorus metabolism; E83.41 Hypermagnesemia; E11.51 Type 2 diabetes mellitus with diabetic peripheral angiopathy without gangrene; K64.4 Residual hemorrhoidal skin tags; K64.0 First degree hemorrhoids; K60.2 Anal fissure, unspecified; E89.2 Postprocedural hypoparathyroidism; Y84.1 Kidney dialysis as the cause of abnormal reaction of the patient, or of later complication, without mention of misadventure at the time of the procedure; H54.7 Unspecified visual loss; E11.319 Type 2 diabetes mellitus with unspecified diabetic retinopathy without macular edema; E66.9 Obesity, unspecified; E11.22 Type 2 diabetes mellitus with diabetic chronic kidney disease; I50.9 Heart failure, unspecified; Z99.2 Dependence on renal dialysis; Z88.8 Allergy status to other drugs, medicaments and biological substances; Z79.899 Other long term (current) drug therapy; Z79.82 Long term (current) use of aspirin; Z83.3 Family history of diabetes mellitus; Z82.49 Family history of ischemic heart disease and other diseases of the circulatory system; Z87.891 Personal history of nicotine dependence; Y92.89 Other specified places as the place of occurrence of the external cause; Z68.23 Body mass index [BMI] 23.0-23.9, adult
CPT/HCPCS: 36415; 71045; 76536; 80048; 80202; 82948; 83036; 83605; 83690; 83735; 83880; 84100; 84439; 84443; 85025; 85610; 85730; 86886; 86900; 86901; 87040; 87070; 87075; 87081; 87186; 87205; 96365; 96367; 99285; J0696; J1644; J1815; J2405; J2704; J3010; J3370; J3490; J7030; J7060; Q0092

== ENCOUNTER 2021-09-04 03:34 | Emergency (ER) | payer OTHER ==
[~2021-09-04] VITALS: Ht 182.9 cm; Wt 108.4 kg
[~2021-09-04 03:34] MED LIST changes: -AMLO5TAB6 PO; -AMOX-999 PO; +CEPH250C16 PO; +HYDR-1100 PO; +LACT-81 PO
[2021-09-04 03:40] VITALS: BP 173/83
--- NOTE | 2021-09-04 03:40 | NUR ---
to bed via w/c
[2021-09-04] MEDS ORDERED: ACETAMINOPHEN EXTRA STRENGTH 500 MG TAB PO ONE (03:55)
[2021-09-04] MEDS ORDERED: ONDANSETRON 4 MG ODT PO ONE (03:55)
[2021-09-04] MEDS ORDERED: ONDA4TAB PO (04:55)
[2021-09-04] MEDS ORDERED: ACET-10509 PO (04:55)
[2021-09-04] MEDS ORDERED: ROB PO (04:55)
--- NOTE | 2021-09-04 05:25 | NUR ---
Patient discharged with v/s stable. Written and verbal after care instructions given and explained. Patient alert, oriented and verbalized understanding of instructions. Wheel Chair Assisted with to car. All questions addressed prior to discharge. ID band removed. Patient advised to follow up with PMD. Rx of zofran, robitussin, and tylenol extra strength tab given. Patient educated on indication of medication including possible reaction and side effects. Opportunity to ask questions provided and answered.
[2021-09-04 05:28] VITALS: BP 120/68
== END 2021-09-04 05:25 | disposition home or self-care (01) ==
LOC: MED 03:34
DX: U07.1 COVID-19 (principal); I13.10 Hypertensive heart and chronic kidney disease without heart failure, with stage 1 through stage 4 chronic kidney disease, or unspecified chronic kidney disease; E13.22 Other specified diabetes mellitus with diabetic chronic kidney disease; N18.9 Chronic kidney disease, unspecified
CPT/HCPCS: 71045; 87804; 99284; Q0092; Q0162; U0003